=== PATIENT | male | born 1935 | race African-American/Black ===

== ENCOUNTER 2018-03-10 13:52 | Inpatient (IN) | payer OTHER ==
[~2018-03-10] VITALS: Ht 180.3 cm; Wt 130.2 kg
--- NOTE | 2018-03-10 14:43 | NUR ---
ED Nurse Note: pt relates unable to recall if he takes meds
[2018-03-10 14:55] VITALS: BP 155/81
--- NOTE | 2018-03-10 14:55 | NUR ---
ED Nurse Note: Pt AAO x4 present at ER c/o worsening Edema on all extremities. BP elevated but pt reported that he is his baseline. Denied pain including chest pain. Lungs sound clear. No s/s of cardiac or pulmonary distress noted.
[2018-03-10 15:02] LABS: BILIRUBIN, URINE NEGATIVE (NEGATIVE); GLUCOSE, URINE (UA) NEGATIVE (NEGATIVE); KETONES,URINE NEGATIVE (NEGATIVE); LEUKOCYTE ESTERASE ,URINE 1+ (NEGATIVE); NITRITE,URINE NEGATIVE (NEGATIVE); PH,URINE 5 (4.5-8.0); PROTEIN,URINE 4+ (NEGATIVE); UROBILINOGEN,URINE NORMAL MG/DL (0.0-1.0)
[2018-03-10 15:02] LABS: BASOPHILS % (AUTO) 0.9 % (0.0-2.0); EOSINOPHILS % (AUTO) 5.5 % (0.0-3.0); HEMATOCRIT 29.3 % (42.0-52.0); HEMOGLOBIN 9.1 G/DL (14.2-18.0); LYMPHOCYTES % (AUTO) 28.2 % (20.0-45.0); MEAN CORPUSCULAR VOLUME 84 FL (80-99); MONOCYTES % (AUTO) 8.1 % (1.0-10.0); NEUTROPHILS % (AUTO) 57.3 % (45.0-75.0); PLATELET COUNT 260 K/UL (150-450); RED BLOOD COUNT 3.48 M/UL (4.70-6.10); RED CELL DISTRIBUTION WIDTH 14.4 % (11.6-14.8); WHITE BLOOD COUNT 5.4 K/UL (4.8-10.8)
[2018-03-10 15:07] LABS: APPEARANCE,URINE SLIGHTLY CLOUDY; COLOR,URINE YELLOW
[2018-03-10 15:17] LABS: ANION GAP 5 mmol/L (5-15); BLOOD UREA NITROGEN 35 mg/dL (7-18); CARBON DIOXIDE 28 MMOL/L (21-32); CHLORIDE 113 MMOL/L (98-107); CREATININE 1.8 MG/DL (0.55-1.30); POTASSIUM 4.1 MMOL/L (3.5-5.1); SODIUM 146 MMOL/L (136-145)
[2018-03-10 15:35] LABS: ALANINE AMINOTRANSFERASE 17 U/L (12-78); ALBUMIN 1.4 G/DL (3.4-5.0); ALBUMIN/GLOBULIN RATIO 0.4 (1.0-2.7); ALKALINE PHOSPHATASE 72 U/L (46-116); ASPARTATE AMINO TRANSFERASE 20 U/L (15-37); BILIRUBIN,TOTAL 0.2 MG/DL (0.2-1.0); CKMB 0.6 NG/ML (0.0-3.6); CREATINE KINASE 172 U/L (26-308)
--- NOTE | 2018-03-10 15:40 | Diagnostic Imaging Report ---
Indication: Shortness of breath Technique: One view of the chest Comparison: none Findings: Heart is enlarged. There is bilateral interstitial edema. The left hemidiaphragm is obscured, pleural effusion possible Impression: Cardiomegaly with interstitial edema Possible left pleural effusion
--- NOTE | 2018-03-10 16:05 | Emergency Room Report ---
History of Present Illness General Chief Complaint: Edema Source: Patient Present Illness HPI States that about a month ago he noted that he began having swelling all over his body. He states that he has been having leg swelling and arm swelling. He did see his primary care physician at the [facility]. He states he admitted to hospital for several weeks. Unfortunately, the patient is a poor historian and has no family or medical information with him. He is unable to articulate any of his medical conditions or his medications. He did not bring a list or his medications with him. He states that he is visiting [facility] at this time. He will medications. He denies heart or lung problems. He denies diabetes. He states he believes he has high blood pressure. He denies history of stroke. He denies pain. He denies recent illness. He denies cough or congestion. He denies fever or chills. He denies chest pain or shortness of breath. He denies abdominal pain. He denies dysuria or hematuria. He has no other complaints. Allergies: Coded Allergies: No Known Allergies (Unverified , 03/10/18) Patient History Past Medical History: see triage record, unable to obtain, HTN Social History: Denies: smoking, alcohol use, drug use Reviewed Nursing Documentation: PMH: Agreed; PSxH: Agreed Review of Systems All Other Systems: negative except mentioned in HPI Physical Exam Vital Signs Date Time Temp Pulse Resp B/P (MAP) Pulse Ox O2 Delivery O2 Flow Rate FiO2 03/10/18 13:47 97.9 82 18 160/84 99 Room Air 03/10/18 14:55 95 Sp02 EP Interpretation: reviewed, normal General Appearance: no apparent distress, alert, GCS 15, non-toxic Head: normocephalic, atraumatic Eyes: bilateral eye normal inspection, bilateral eye PERRL ENT: hearing grossly normal, normal pharynx, no angioedema, normal voice Neck: full range of motion, supple/symm/no masses Respiratory: chest non-tender, lungs clear, normal breath sounds, no respiratory distress, no retraction, no accessory muscle use, speaking full sentences Cardiovascular #1: regular rate, rhythm, no edema, edema - BLE and BUE edema Gastrointestinal: normal bowel sounds, non tender, soft, non-distended, no guarding, no rebound Rectal: deferred Musculoskeletal: back normal, gait/station normal, normal range of motion, non- tender Neurologic: alert, oriented x3, responsive, motor strength/tone normal, sensory intact, speech normal Psychiatric: judgement/insight normal, mood/affect normal, no suicidal/ homicidal ideation Skin: normal color, no rash, warm/dry, well hydrated, other - anasarca Medical Decision Making Diagnostic Impression: Primary Impression: Anasarca Additional Impressions: CHARLIE (acute kidney injury) Proteinuria Glomerulonephritis Congestive heart failure (CHF) ER Course This patient is acute kidney injury. He also has proteinuria with anasarca that is concerning for a glomerulonephritis. I am concerned that this has been progressive given the symptom onset 1 month ago. The [place] the [place] away from his primary care physician and has no ability to follow-up. I am also concerned that this since medical sophistication is very low. She was unable to articulate any medical problems or medications despite being admitted to a hospital for 3 weeks according to him. I am concerned that if I were to discharge this patient with follow-up as an outpatient he would decline further and have significant morbidity due to his acute kidney injury and proteinuria., I felt that this patient should be admitted for further evaluation by nephrology. He is admitted for further evaluation and treatment. Laboratory Tests Test 03/10/18 14:20 03/10/18 14:46 Urine Color Yellow Urine Appearance Slightly cloudy Urine pH 5 (4.5-8.0) Urine Specific [place] 1.015 (1.005-1.035) Urine Protein 4+ (NEGATIVE) H Urine Glucose (UA) Negative (NEGATIVE) Urine Ketones Negative (NEGATIVE) Urine Blood 1+ (NEGATIVE) H Urine Nitrite Negative (NEGATIVE) Urine Bilirubin Negative (NEGATIVE) Urine Urobilinogen Normal MG/DL (0.0-1.0) Urine Leukocyte Esterase 1+ (NEGATIVE) H Urine RBC 2-4 /HPF (0 - 0) H Urine WBC 5-10 /HPF (0 - 0) H Urine Squamous Epithelial Cells None /LPF (NONE/OCC) Urine Amorphous Sediment Few /LPF (NONE) H Urine Bacteria Moderate /HPF (NONE) H White Blood Count 5.4 K/UL (4.8-10.8) Red Blood Count 3.48 M/UL (4.70-6.10) L Hemoglobin 9.1 G/DL (14.2-18.0) L Hematocrit 29.3 % (42.0-52.0) L Mean Corpuscular Volume 84 FL (80-99) Mean Corpuscular Hemoglobin 26.2 PG (27.0-31.0) L Mean Corpuscular Hemoglobin Concent 31.1 G/DL (32.0-36.0) L Red Cell Distribution Width 14.4 % (11.6-14.8) Platelet Count 260 K/UL (150-450) Mean Platelet Volume 5.9 FL (6.5-10.1) L Neutrophils (%) (Auto) 57.3 % (45.0-75.0) Lymphocytes (%) (Auto) 28.2 % (20.0-45.0) Monocytes (%) (Auto) 8.1 % (1.0-10.0) Eosinophils (%) (Auto) 5.5 % (0.0-3.0) H Basophils (%) (Auto) 0.9 % (0.0-2.0) Prothrombin Time 10.2 SEC (9.30-11.50) Prothrombin Time INR 1.0 (0.9-1.1) PTT 26 SEC (23-33) Sodium Level 146 MMOL/L (136-145) H Potassium Level 4.1 MMOL/L (3.5-5.1) Chloride Level 113 MMOL/L (98-107) H Carbon Dioxide Level 28 MMOL/L (21-32) Anion Gap 5 mmol/L (5-15) Blood Urea Nitrogen 35 mg/dL (7-18) H Creatinine 1.8 MG/DL (0.55-1.30) H Estimate Glomerular Filtration Rate mL/min (>60) Glucose Level 119 MG/DL (74-106) H Calcium Level 8.0 MG/DL (8.5-10.1) L Total Bilirubin 0.2 MG/DL (0.2-1.0) Aspartate Amino Transferase (AST) 20 U/L (15-37) Alanine Aminotransferase (ALT) 17 U/L (12-78) Alkaline Phosphatase 72 U/L (46-116) Total Creatine Kinase 172 U/L (26-308) Creatine Kinase MB 0.6 NG/ML (0.0-3.6) Creatine Kinase MB Relative Index 0.3 Troponin I 0.013 ng/mL (0.000-0.056) Pro-B-Type Natriuretic Peptide 384 pg/mL (0-125) H Total Protein 5.3 G/DL (6.4-8.2) L Albumin 1.4 G/DL (3.4-5.0) L Globulin 3.9 g/dL Albumin/Globulin Ratio 0.4 (1.0-2.7) L EKG Diagnostic Results Rate: normal Rhythm: NSR ST Segments: no acute changes Rhythm Strip Diag. Results EP Interpretation: yes Rate: 80's Rhythm: NSR, no PVC's, no ectopy, other - NSST findings. Chest X-Ray Diagnostic Results Chest X-Ray Diagnostic Results : Chest X-Ray Ordered: Yes # of Views/Limited/Complete: 1 View Indication: Other EP Interpretation: No Interpretation: other - Cardiomegaly, interstitial edema Impression: Other - See above Electronically Signed by: Valorie Kuo DO Last Vital Signs Date Time Temp Pulse Resp B/P (MAP) Pulse Ox O2 Delivery O2 Flow Rate FiO2 03/10/18 14:55 95 18 Room Air 95 03/10/18 14:55 98.1 155/81 99 Disposition: ADMITTED INPATIENT Condition: Serious Scripts Unable to Obtain Active Prescriptions or Reported Meds Valorie Kuo DO Mar 10, 2018 16:05
[2018-03-10 17:00] VITALS: BP 144/91
--- NOTE | 2018-03-10 17:37 | NUR ---
ED Nurse Note: Pt will be admitted to Tele. Waiting for the room to be available.
--- NOTE | 2018-03-10 18:39 | Cardiac Electrophysiology PN ---
Subjective Subjective [id number] Objective Last 24 Hour Vital Signs Date Time Temp Pulse Resp B/P (MAP) Pulse Ox O2 Delivery O2 Flow Rate FiO2 03/10/18 14:55 95 18 Room Air 95 03/10/18 14:55 98.1 95 23 155/81 99 Room Air 03/10/18 13:47 97.9 82 18 160/84 99 Room Air Laboratory Tests Test 03/10/18 14:20 03/10/18 14:46 Urine Color Yellow Urine Appearance Slightly cloudy Urine pH 5 (4.5-8.0) Urine Specific [place] 1.015 (1.005-1.035) Urine Protein 4+ (NEGATIVE) H Urine Glucose (UA) Negative (NEGATIVE) Urine Ketones Negative (NEGATIVE) Urine Blood 1+ (NEGATIVE) H Urine Nitrite Negative (NEGATIVE) Urine Bilirubin Negative (NEGATIVE) Urine Urobilinogen Normal MG/DL (0.0-1.0) Urine Leukocyte Esterase 1+ (NEGATIVE) H Urine RBC 2-4 /HPF (0 - 0) H Urine WBC 5-10 /HPF (0 - 0) H Urine Squamous Epithelial Cells None /LPF (NONE/OCC) Urine Amorphous Sediment Few /LPF (NONE) H Urine Bacteria Moderate /HPF (NONE) H White Blood Count 5.4 K/UL (4.8-10.8) Red Blood Count 3.48 M/UL (4.70-6.10) L Hemoglobin 9.1 G/DL (14.2-18.0) L Hematocrit 29.3 % (42.0-52.0) L Mean Corpuscular Volume 84 FL (80-99) Mean Corpuscular Hemoglobin 26.2 PG (27.0-31.0) L Mean Corpuscular Hemoglobin Concent 31.1 G/DL (32.0-36.0) L Red Cell Distribution Width 14.4 % (11.6-14.8) Platelet Count 260 K/UL (150-450) Mean Platelet Volume 5.9 FL (6.5-10.1) L Neutrophils (%) (Auto) 57.3 % (45.0-75.0) Lymphocytes (%) (Auto) 28.2 % (20.0-45.0) Monocytes (%) (Auto) 8.1 % (1.0-10.0) Eosinophils (%) (Auto) 5.5 % (0.0-3.0) H Basophils (%) (Auto) 0.9 % (0.0-2.0) Prothrombin Time 10.2 SEC (9.30-11.50) Prothromb Time International Ratio 1.0 (0.9-1.1) Activated Partial Thromboplast Time 26 SEC (23-33) Sodium Level 146 MMOL/L (136-145) H Potassium Level 4.1 MMOL/L (3.5-5.1) Chloride Level 113 MMOL/L (98-107) H Carbon Dioxide Level 28 MMOL/L (21-32) Anion Gap 5 mmol/L (5-15) Blood Urea Nitrogen 35 mg/dL (7-18) H Creatinine 1.8 MG/DL (0.55-1.30) H Estimat Glomerular Filtration Rate mL/min (>60) Glucose Level 119 MG/DL (74-106) H Calcium Level 8.0 MG/DL (8.5-10.1) L Total Bilirubin 0.2 MG/DL (0.2-1.0) Aspartate Amino Transf (AST/SGOT) 20 U/L (15-37) Alanine Aminotransferase (ALT/SGPT) 17 U/L (12-78) Alkaline Phosphatase 72 U/L (46-116) Total Creatine Kinase 172 U/L (26-308) Creatine Kinase MB 0.6 NG/ML (0.0-3.6) Creatine Kinase MB Relative Index 0.3 Troponin I 0.013 ng/mL (0.000-0.056) Pro-B-Type Natriuretic Peptide 384 pg/mL (0-125) H Total Protein 5.3 G/DL (6.4-8.2) L Albumin 1.4 G/DL (3.4-5.0) L Globulin 3.9 g/dL Albumin/Globulin Ratio 0.4 (1.0-2.7) L Jose Chairez MD Mar 10, 2018 18:39
[2018-03-10 19:03] VITALS: BP 155/95
--- NOTE | 2018-03-10 19:36 | NUR ---
ED Nurse Note: Patient is in bed alert and oriented but unable to verify the medication that he takes back in [place]. Patient is oriented x4, vss. Has no acute concerns at this time and no complaints of pain.
[2018-03-10 20:00] VITALS: BP 152/72
--- NOTE | 2018-03-10 20:00 | NUR ---
NURSE NOTES: Received report from Yasmine COOPER RN via telephone regarding patient before entering the unit. Patient was transferred to unit via gurney and transferred to hospital bed via gurney without incident. Placed patient on security monitor, orientated him to room, hospital, and unit. Tried reviewing past medical history and home medication regimen but patient is a poor historian. Admission orders were received and will be carried out. Admission vitals signs are WNL as well as EKG rhythm. Bed is in lowest position with call light within reach. Will continue to monitor and follow plan of care.
[2018-03-10 21:46] VITALS: BP 167/70
--- NOTE | 2018-03-10 22:15 | Consultation ---
DATE OF CONSULTATION: 03/10/2018 CARDIOLOGY CONSULTATION CONSULTING PHYSICIAN: Jose Chairez M.D. REFERRING PHYSICIAN: Rambo Conklin M.D. REASON FOR CONSULTATION: Congestive heart failure. HISTORY OF PRESENT ILLNESS: The patient is an 82-year-old gentleman, who is visiting [place] from [place], who states that he for more than a month. He stated that he also had an angiogram, but he does not know why. He states that he has been having increased swelling in his legs, but did not make a diagnosis. He saw his primary care at the [facility] and was admitted for several weeks. The patient is not clear about his diagnosis. He came to the emergency room as his blood pressure was elevated and his legs were still significantly swollen. REVIEW OF SYSTEMS: Negative other than what was mentioned in the history of present illness. PAST MEDICAL HISTORY: Hypertension. FAMILY HISTORY: Noncontributory. SOCIAL HISTORY: He is from [place] visiting his son in [place]. Does not smoke or drink alcohol. PHYSICAL EXAMINATION: VITAL SIGNS: Blood pressure is 155/81, pulse 95, respirations 18, and temperature 98. HEAD AND NECK: Shows mild JVD. LUNGS: Decreased breath sounds. CARDIOVASCULAR: Shows regular S1 and S2 with no gallop. ABDOMEN: Soft. EXTREMITIES: 2+ pitting edema. LABORATORY AND DIAGNOSTIC DATA: EKG shows sinus rhythm with nonspecific T-wave abnormality. Labs show white count of 5.5, hemoglobin 9.1, hematocrit 29.3, and platelet count of 260,000. Sodium 143, potassium 4.1, BUN 35, creatinine , and glucose 119. Troponin is negative. INR is 1. Urinalysis showed moderate bacteria. ASSESSMENT AND PLAN: 1. Severe bilateral lower extremity edema. We will get a lower extremity duplex. We will get an echocardiogram to evaluate for ejection fraction and wall motion abnormality. His creatinine is also elevated at 1.8. I will put him on Lasix 40 mg IV b.i.d. and continue to follow the patient clinically. 2. Hypertension. Continue Lasix and metoprolol 25 mg b.i.d. Avoid BOBBY inhibitor and angiotensin-receptor blockers in view of his renal failure at this point. 3. Morbid obesity. Thank you very much for allowing me to participate in the care of this patient. Please do not hesitate to contact me for any questions regarding my evaluation. Sincerely, Jose Chairez M.D. DR: SHIREEN JOB#: [id number] CC:
[2018-03-10] MEDS: Carvedilol 6.25mg Tab ORAL SCH (23:00)
[2018-03-11] VITALS: BP 146/76
[2018-03-11 04:00] VITALS: BP 149/81
--- NOTE | 2018-03-11 07:20 | NUR ---
NURSE NOTES:RECEIVED PT WITH HOB ELEVATED 45 DEGREE AWAKE AND ALERT ORIENTED X4 .PT DENIES CP OR SOB AT THIS TIME.FULL BODY ASSESSMENT DONE.NO ACUTE DISTRESS NOTED AT THIS TIME.WILL CONT TO MONITOR.
--- NOTE | 2018-03-11 07:52 | NUR ---
HAND-OFF: Report given to Brittany WILKINS.
[2018-03-11 08:00] VITALS: BP 159/78
[2018-03-11] MEDS: Carvedilol 6.25mg Tab ORAL SCH ×2 (09:00→21:05)
[2018-03-11 10:52] LABS: HDL CHOLESTEROL 50 MG/DL (40-60); TRIGLYCERIDES 90 MG/DL (30-150)
--- NOTE | 2018-03-11 10:54 | NUR ---
CASE MANAGEMENT:REVIEW BIBA CC; BLE EDEMA PMH: WAS RECENTLY SEEN AND HOSPITALIZED AT [place] SI: [facility]. CHF. CHARLIE 97.8 82 18 160/84 99% ON RA H/H-9.1/29.3 NA 146 BUN 35 CR 1.8 TROPONIN NEG IS: CXR : TO TELEMETRY IS: HEPARIN SQ IV LASIX Q12 COREG POQ12 PLAN: 2DECHO VENOUS DUPLEX INTERQUAL CRITERIA MET
--- NOTE | 2018-03-11 10:55 | Cardiac Electrophysiology PN ---
Assessment/Plan Assessment/Plan 1. Severe bilateral lower extremity edema. Echocardiogram pending. His creatinine is also elevated at 1.8. On Lasix 40 mg IV b.i.d. 2. Hypertension. Continue Lasix and metoprolol 25 mg b.i.d. Avoid BOBBY inhibitor and angiotensin-receptor blockers in view of his renal failure at this point. 3. Morbid obesity. Subjective Subjective Diuresing well. No CP Objective Last 24 Hour Vital Signs Date Time Temp Pulse Resp B/P (MAP) Pulse Ox O2 Delivery O2 Flow Rate FiO2 03/11/18 09:00 73 159/78 03/11/18 08:00 97.5 73 20 159/78 (105) 95 03/11/18 04:00 98.0 66 18 149/81 (103) 96 03/11/18 04:00 78 03/11/18 00:00 80 03/11/18 00:00 98.1 68 18 146/76 (99) 93 03/10/18 23:00 80 152/72 03/10/18 22:37 Room Air 03/10/18 22:10 97.4 73 14 167/70 95 Room Air 95 03/10/18 21:46 97.4 73 14 167/70 95 Room Air 03/10/18 20:00 97.3 80 18 152/72 (98) 93 03/10/18 19:03 97.7 82 19 155/95 98 Room Air 95 03/10/18 17:00 98.1 84 19 144/91 99 Room Air 95 03/10/18 14:55 95 18 Room Air 95 03/10/18 14:55 98.1 95 23 155/81 99 Room Air 03/10/18 13:47 97.9 82 18 160/84 99 Room Air Intake and Output 03/10/18 03/11/18 18:59 06:59 # Voids 1 3 Laboratory Tests Test 03/10/18 14:20 03/10/18 14:46 03/11/18 07:02 Urine Color Yellow Urine Appearance Slightly cloudy Urine pH 5 (4.5-8.0) Urine Specific [place] 1.015 (1.005-1.035) Urine Protein 4+ (NEGATIVE) H Urine Glucose (UA) Negative (NEGATIVE) Urine Ketones Negative (NEGATIVE) Urine Blood 1+ (NEGATIVE) H Urine Nitrite Negative (NEGATIVE) Urine Bilirubin Negative (NEGATIVE) Urine Urobilinogen Normal MG/DL (0.0-1.0) Urine Leukocyte Esterase 1+ (NEGATIVE) H Urine RBC 2-4 /HPF (0 - 0) H Urine WBC 5-10 /HPF (0 - 0) H Urine Squamous Epithelial Cells None /LPF (NONE/OCC) Urine Amorphous Sediment Few /LPF (NONE) H Urine Bacteria Moderate /HPF (NONE) H White Blood Count 5.4 K/UL (4.8-10.8) Red Blood Count 3.48 M/UL (4.70-6.10) L Hemoglobin 9.1 G/DL (14.2-18.0) L Hematocrit 29.3 % (42.0-52.0) L Mean Corpuscular Volume 84 FL (80-99) Mean Corpuscular Hemoglobin 26.2 PG (27.0-31.0) L Mean Corpuscular Hemoglobin Concent 31.1 G/DL (32.0-36.0) L Red Cell Distribution Width 14.4 % (11.6-14.8) Platelet Count 260 K/UL (150-450) Mean Platelet Volume 5.9 FL (6.5-10.1) L Neutrophils (%) (Auto) 57.3 % (45.0-75.0) Lymphocytes (%) (Auto) 28.2 % (20.0-45.0) Monocytes (%) (Auto) 8.1 % (1.0-10.0) Eosinophils (%) (Auto) 5.5 % (0.0-3.0) H Basophils (%) (Auto) 0.9 % (0.0-2.0) Prothrombin Time 10.2 SEC (9.30-11.50) Prothromb Time International Ratio 1.0 (0.9-1.1) Activated Partial Thromboplast Time 26 SEC (23-33) Sodium Level 146 MMOL/L (136-145) H Potassium Level 4.1 MMOL/L (3.5-5.1) Chloride Level 113 MMOL/L (98-107) H Carbon Dioxide Level 28 MMOL/L (21-32) Anion Gap 5 mmol/L (5-15) Blood Urea Nitrogen 35 mg/dL (7-18) H Creatinine 1.8 MG/DL (0.55-1.30) H Estimat Glomerular Filtration Rate mL/min (>60) Glucose Level 119 MG/DL (74-106) H Calcium Level 8.0 MG/DL (8.5-10.1) L Total Bilirubin 0.2 MG/DL (0.2-1.0) Aspartate Amino Transf (AST/SGOT) 20 U/L (15-37) Alanine Aminotransferase (ALT/SGPT) 17 U/L (12-78) Alkaline Phosphatase 72 U/L (46-116) Total Creatine Kinase 172 U/L (26-308) Creatine Kinase MB 0.6 NG/ML (0.0-3.6) Creatine Kinase MB Relative Index 0.3 Troponin I 0.013 ng/mL (0.000-0.056) 0.017 ng/mL (0.000-0.056) Pro-B-Type Natriuretic Peptide 384 pg/mL (0-125) H Pending Total Protein 5.3 G/DL (6.4-8.2) L Albumin 1.4 G/DL (3.4-5.0) L Globulin 3.9 g/dL Albumin/Globulin Ratio 0.4 (1.0-2.7) L Triglycerides Level Pending Cholesterol Level Pending LDL Cholesterol Pending HDL Cholesterol Pending Cholesterol/HDL Ratio Pending Thyroid Stimulating Hormone (TSH) Pending Free Thyroxine Pending Microbiology Date/Time Source Procedure Growth Status 03/10/18 14:20 Urine,Clean Catch Urine Culture - Preliminary NO GROWTH Resulted Objective HEAD AND NECK: Shows mild JVD. LUNGS: Decreased breath sounds. CARDIOVASCULAR: Shows regular S1 and S2 with no gallop. ABDOMEN: Soft. EXTREMITIES: 2+ pitting edema. Jose Chairez MD Mar 11, 2018 10:55
[2018-03-11 11:02] LABS: CHOLESTEROL 162 MG/DL (< 200)
[2018-03-11 12:00] VITALS: BP 138/86
--- NOTE | 2018-03-11 13:56 | Consultation ---
Consult Note Consult Note asked to eval for renal failure- States that about a month ago he noted that he began having swelling all over his body. He states that he has been having leg swelling and arm swelling. He did see his primary care physician at the [place] [facility]. He states he admitted to hospital for several weeks. Unfortunately, the patient is a poor historian and has no family or medical information with him. He is unable to articulate any of his medical conditions or his medications. He did not bring a list or his medications with him. He states that he is visiting [facility] at this time. He will medications. He denies heart or lung problems. He denies diabetes. He states he believes he has high blood pressure. He denies history of stroke. He denies pain. He denies recent illness. He denies cough or congestion. He denies fever or chills. He denies chest pain or shortness of breath. He denies abdominal pain. He denies dysuria or hematuria. He has no other complaints. No Known Allergies (Unverified , 03/10/18) examined data reviewed poor historian . . Assessment/Plan Anemia, Proteinuria, HypoAlbuminemia, Renal Failure ? Diabetic ? Amyloidosis HTN ? CHF 24 H urine protein SPEP UPEP HgbA1c BP control 2D echo per orders Arcadio Guevara MD Mar 11, 2018 13:55
--- NOTE | 2018-03-11 14:16 | History and Physical ---
History & Physical (DB) History & Physical History & Physical Chief Complaint: SOB Reason for Hospitalization: Anasarca, renal failure, ADHF History obtained from: Chart and Patient HPI: 82 M unknown PMH was admitted @ the [facility] in [place] last month for unknown reasons presents now with several weeks of increased edema, frothy urine , SOB, no FC, no cough, no wheezing. He is unsure why he was hospitalized and states that he has no medical problems other than possibly HTN. He is visiting from [place]. He denies any WARREN use. Work un in the ED demonstrates abnormal renal function with proteinuria, edema and concern for ADHF. Past Medical/Surgical History: Denies Social History: , visiting from [place], no T/E/D use Family History: N/C ALL: NKDA Active Scripts Medications Dose Route/Sig Max Daily Dose Days Date Category Active Prescriptions or Reported Medications Unobtainable Rx REVIEW OF SYSTEMS: negative other than hPI Physical exam: Last 24 Hour Vital Signs Date Time Temp Pulse Resp B/P (MAP) Pulse Ox O2 Delivery O2 Flow Rate FiO2 03/11/18 12:00 97.3 78 20 138/86 (103) 94 03/11/18 12:00 64 03/11/18 09:00 73 159/78 03/11/18 08:00 75 03/11/18 08:00 97.5 73 20 159/78 (105) 95 03/11/18 04:00 98.0 66 18 149/81 (103) 96 03/11/18 04:00 78 03/11/18 00:00 80 03/11/18 00:00 98.1 68 18 146/76 (99) 93 03/10/18 23:00 80 152/72 03/10/18 22:37 Room Air 03/10/18 22:10 97.4 73 14 167/70 95 Room Air 95 03/10/18 21:46 97.4 73 14 167/70 95 Room Air 03/10/18 20:00 97.3 80 18 152/72 (98) 93 03/10/18 19:03 97.7 82 19 155/95 98 Room Air 95 03/10/18 17:00 98.1 84 19 144/91 99 Room Air 95 03/10/18 14:55 95 18 Room Air 95 03/10/18 14:55 98.1 95 23 155/81 99 Room Air NAD, AAOX3 NC/AT, OPC c MMM Supple s LAD, JVD to AoM CTA b x for BiB rales RRR S/NT/ND c NABS No C/C, 1+ BAK[facility]I Laboratories: Laboratory Tests Test 03/10/18 14:20 03/10/18 14:46 03/11/18 07:02 Urine Color Yellow Urine Appearance Slightly cloudy Urine pH 5 (4.5-8.0) Urine Specific [place] 1.015 (1.005-1.035) Urine Protein 4+ (NEGATIVE) H Urine Glucose (UA) Negative (NEGATIVE) Urine Ketones Negative (NEGATIVE) Urine Blood 1+ (NEGATIVE) H Urine Nitrite Negative (NEGATIVE) Urine Bilirubin Negative (NEGATIVE) Urine Urobilinogen Normal MG/DL (0.0-1.0) Urine Leukocyte Esterase 1+ (NEGATIVE) H Urine RBC 2-4 /HPF (0 - 0) H Urine WBC 5-10 /HPF (0 - 0) H Urine Squamous Epithelial Cells None /LPF (NONE/OCC) Urine Amorphous Sediment Few /LPF (NONE) H Urine Bacteria Moderate /HPF (NONE) H White Blood Count 5.4 K/UL (4.8-10.8) Red Blood Count 3.48 M/UL (4.70-6.10) L Hemoglobin 9.1 G/DL (14.2-18.0) L Hematocrit 29.3 % (42.0-52.0) L Mean Corpuscular Volume 84 FL (80-99) Mean Corpuscular Hemoglobin 26.2 PG (27.0-31.0) L Mean Corpuscular Hemoglobin Concent 31.1 G/DL (32.0-36.0) L Red Cell Distribution Width 14.4 % (11.6-14.8) Platelet Count 260 K/UL (150-450) Mean Platelet Volume 5.9 FL (6.5-10.1) L Neutrophils (%) (Auto) 57.3 % (45.0-75.0) Lymphocytes (%) (Auto) 28.2 % (20.0-45.0) Monocytes (%) (Auto) 8.1 % (1.0-10.0) Eosinophils (%) (Auto) 5.5 % (0.0-3.0) H Basophils (%) (Auto) 0.9 % (0.0-2.0) Prothrombin Time 10.2 SEC (9.30-11.50) Prothromb Time International Ratio 1.0 (0.9-1.1) Activated Partial Thromboplast Time 26 SEC (23-33) Sodium Level 146 MMOL/L (136-145) H Potassium Level 4.1 MMOL/L (3.5-5.1) Chloride Level 113 MMOL/L (98-107) H Carbon Dioxide Level 28 MMOL/L (21-32) Anion Gap 5 mmol/L (5-15) Blood Urea Nitrogen 35 mg/dL (7-18) H Creatinine 1.8 MG/DL (0.55-1.30) H Estimat Glomerular Filtration Rate mL/min (>60) Glucose Level 119 MG/DL (74-106) H Calcium Level 8.0 MG/DL (8.5-10.1) L Total Bilirubin 0.2 MG/DL (0.2-1.0) Aspartate Amino Transf (AST/SGOT) 20 U/L (15-37) Alanine Aminotransferase (ALT/SGPT) 17 U/L (12-78) Alkaline Phosphatase 72 U/L (46-116) Total Creatine Kinase 172 U/L (26-308) Creatine Kinase MB 0.6 NG/ML (0.0-3.6) Creatine Kinase MB Relative Index 0.3 Troponin I 0.013 ng/mL (0.000-0.056) 0.017 ng/mL (0.000-0.056) Pro-B-Type Natriuretic Peptide 384 pg/mL (0-125) H 488 pg/mL (0-125) H Total Protein 5.3 G/DL (6.4-8.2) L Albumin 1.4 G/DL (3.4-5.0) L Globulin 3.9 g/dL Albumin/Globulin Ratio 0.4 (1.0-2.7) L Triglycerides Level 90 MG/DL (30-150) Cholesterol Level 162 MG/DL (< 200) LDL Cholesterol 92 mg/dL (<100) HDL Cholesterol 50 MG/DL (40-60) Cholesterol/HDL Ratio 3.2 (3.3-4.4) L Thyroid Stimulating Hormone (TSH) 5.017 uiU/mL (0.358-3.740) Free Thyroxine 0.87 NG/DL (0.76-1.46) Imaging: CXR: PVC Duplex: No DVT Assessment/Problem List: 82 M h/o obesity and HTN pw SOB and edema in the setting of nephrotic syndrome and possible CHF. (1) CHARLIE (acute kidney injury) (2) Anasarca (3) Congestive heart failure (CHF) (4) Glomerulonephritis (5) Proteinuria Plan: -Admit to tele -Monitor volumes and renal function, cautious diuresis -Cards and renal evaluations -F/U studies (SPEP, UPEP, urine studies, renal US), may need renal Bx -F/U TTE -CT CAP -ENDO eval given abnl TFT's -Cardiac diet DVT Prophylaxis: HEP SQ Code status: full Hospital Classification declaration: Based on this initial evaluation, and depending on the patient's clinical course, I anticipate that this patient will require hospitalization for 2-3 days. Disposition: Once the patient is stable to leave the hospital, I anticipate the patient will likely be discharged to the following environment I spent 70 minutes on this patient's case, and minutes was dedicated to counseling and/or care coordination. Case was discussed with Time of note may not reflect time of encounter. Rambo Conklin MD Mar 11, 2018 14:16
[2018-03-11 16:00] VITALS: BP 155/65
--- NOTE | 2018-03-11 18:51 | Infectious Diseases Prog Note ---
Assessment/Plan Assessment/Plan Full consult dictated: possible uti + ua no urinary symptoms per patient urine culture negative so far check final urine culture antibiotics if indicated thank you Subjective Allergies: Coded Allergies: No Known Allergies (Unverified , 03/10/18) Objective Vital Signs Last 24 Hour Vital Signs Date Time Temp Pulse Resp B/P (MAP) Pulse Ox O2 Delivery O2 Flow Rate FiO2 03/11/18 16:00 73 03/11/18 16:00 98.0 71 19 155/65 (95) 97 03/11/18 12:00 97.3 78 20 138/86 (103) 94 03/11/18 12:00 64 03/11/18 09:00 73 159/78 03/11/18 09:00 Room Air 03/11/18 08:00 75 03/11/18 08:00 97.5 73 20 159/78 (105) 95 03/11/18 04:00 98.0 66 18 149/81 (103) 96 03/11/18 04:00 78 03/11/18 00:00 80 03/11/18 00:00 98.1 68 18 146/76 (99) 93 03/10/18 23:00 80 152/72 03/10/18 22:37 Room Air 03/10/18 22:10 97.4 73 14 167/70 95 Room Air 95 03/10/18 21:46 97.4 73 14 167/70 95 Room Air 03/10/18 20:00 97.3 80 18 152/72 (98) 93 03/10/18 19:03 97.7 82 19 155/95 98 Room Air 95 Height (Feet): 5 Height (Inches): 11.00 Weight (Pounds): 288 Microbiology Date/Time Source Procedure Growth Status 03/10/18 14:20 Urine,Clean Catch Urine Culture - Preliminary NO GROWTH Resulted Laboratory Tests Test 03/11/18 07:02 Troponin I 0.017 ng/mL (0.000-0.056) C-Reactive Protein, Quantitative 1.1 mg/dL (0.00-0.90) H Pro-B-Type Natriuretic Peptide 488 pg/mL (0-125) H Triglycerides Level 90 MG/DL (30-150) Cholesterol Level 162 MG/DL (< 200) LDL Cholesterol 92 mg/dL (<100) HDL Cholesterol 50 MG/DL (40-60) Cholesterol/HDL Ratio 3.2 (3.3-4.4) L Thyroid Stimulating Hormone (TSH) 5.017 uiU/mL (0.358-3.740) Free Thyroxine 0.87 NG/DL (0.76-1.46) Current Medications Medications (Trade) Dose Ordered Sig/Panfilo Route PRN Reason Start Time Stop Time Status Last Admin Dose Admin Acetaminophen (Tylenol) 650 mg Q6H PRN ORAL Mild Pain/Temp > 100.5 03/11/18 09:45 04/10/18 09:44 Carvedilol (Coreg) 6.25 mg EVERY 12 HOURS ORAL 03/10/18 21:00 04/09/18 20:59 03/11/18 09:00 Clonidine HCl (Catapres Tab) 0.1 mg Q4H PRN ORAL sbp>170mmHg 03/11/18 14:15 04/09/18 18:44 Furosemide (Lasix) 40 mg EVERY 12 HOURS IV 03/10/18 21:00 04/09/18 20:59 03/11/18 09:00 Heparin Sodium (Porcine) (Heparin 5000 units/ml) 5,000 units EVERY 12 HOURS SUBQ 03/11/18 21:00 04/10/18 20:59 Ondansetron HCl (Zofran) 4 mg Q6H PRN IVP Nausea & Vomiting 03/11/18 09:45 04/10/18 09:44 Pantoprazole (Protonix) 40 mg DAILY ORAL 03/11/18 14:30 04/10/18 14:29 03/11/18 15:24 Tamsulosin HCl (Flomax) 0.4 mg BEDTIME ORAL 03/11/18 21:00 04/10/18 20:59 Fiorella Mclaughlin MD Mar 11, 2018 18:51
--- NOTE | 2018-03-11 19:18 | NUR ---
HAND-OFF: Report given to .KRISTEN WILKINS.
--- NOTE | 2018-03-11 19:30 | NUR ---
NURSE NOTES: 24 hour urine initiated at this time. Patient made aware the reason of urine collection. Patient verbalized understanding.
[2018-03-11 20:00] VITALS: BP 137/59
[2018-03-11] MEDS: Tamsulosin 0.4mg cap ORAL SCH (21:05)
[2018-03-11] MEDS: Heparin 5000 units/ml inj SUBQ SCH (21:07)
--- NOTE | 2018-03-11 22:30 | Consultation ---
DATE OF CONSULTATION: 03/11/2018 INFECTIOUS DISEASES CONSULTATION CONSULTING PHYSICIAN: Fiorella Mclaughlin M.D. ATTENDING PHYSICIAN: Rambo Conklin M.D. REFERRING PHYSICIAN: Rambo Conklin M.D. REASON FOR CONSULTATION: Possible UTI. REASON FOR ADMISSION: Acute kidney injury, anasarca, proteinuria, renal failure, edema. HISTORY OF PRESENT ILLNESS: This is a very pleasant 82-year-old male who comes in to [facility] and was noted to have acute kidney injury and elevated creatinine. The patient was noted to have edema and anasarca. The patient was also noted to have positive urinalysis and question if the patient has urinary tract infection. Infectious Diseases was consulted for evaluation for possible UTI. The patient's urinalysis was positive, however, his urine culture so far is negative. The patient denies any urinary symptoms at this time. The patient is being worked up by primary, Dr. Conklin, and consultants. MAR was noted. Orders were noted. Notes were reviewed. The patient has not received any antibiotics at this time. REVIEW OF SYSTEMS: CONSTITUTIONAL: He has generalized fatigue. No focal weakness. HEAD AND NECK: No head pain or neck pain. No headache or change in vision. No neck stiffness. CARDIAC: No chest pain. He does have edema. GASTROINTESTINAL: No nausea, vomiting, or diarrhea. GENITOURINARY: No dysuria or frequency. No CVA tenderness. PULMONARY: No congestion or shortness of breath. He has no productive cough or secretions. SKIN: No rash or itching. EXTREMITIES: No extremity pain, but he just has edema. NEUROLOGIC: No seizures. PAST MEDICAL HISTORY: The patient has past medical history of anemia, history of renal failure, history of hypertension, proteinuria, glomerular nephritis, CHF, anasarca, edema, and acute kidney injury. Likely chronic kidney disease. No history of diabetes. ALLERGIES: No known drug allergies. No antibiotic allergies. SOCIAL HISTORY: Currently is negative for smoking, alcohol, or drug abuse. FAMILY HISTORY: Noncontributory. Negative for cancer or tuberculosis. MEDICATIONS: Upon reviewing the MAR, he is on the following medications. He is on heparin. He is on Flomax, Protonix, Catapres, Tylenol, Zofran, Lasix, Coreg. Outside medications noted and reconciliated. PHYSICAL EXAMINATION: VITAL SIGNS: Temperature 98.0, pulse rate 71, respiratory rate 19, blood pressure 155/65, saturation 97%. GENERAL: Alert, responsive, in no acute distress. HEAD AND NECK: Oral exam, no thrush. Eye exam, no icterus. Normocephalic. No JVD. No icterus. Neck is supple. No thrush. HEART: Regular. No obvious murmur or friction rub. Possible gallop. ABDOMEN: Soft. Positive bowel sounds. Nontender. No organomegaly. LUNGS: Clear bilaterally. No rhonchi or rales. SKIN: No rash. MUSCULOSKELETAL: No effusion. No septic arthritis. EXTREMITIES: Lower extremity exam, he has no cellulitis, but does have edema. PERIPHERAL VASCULAR: No gangrene. GENITOURINARY: No Velasquez. No CVA tenderness. LINE SITES: Without phlebitis. NEUROLOGIC: Intact. Nonfocal. LABORATORY DATA: As follows. White count 5.4, hemoglobin 9.1. Sodium 146. Urinalysis had 1+ leukocyte esterase, 5-10 white blood cells, moderate bacteria. Urine culture is negative so far at 24 hours. Creatinine 1.8. IMAGING STUDIES: Chest x-ray shows cardiomegaly, interstitial edema, possible effusion on the left. ASSESSMENT AND PLAN: 1. The patient has positive urinalysis with 1+ leukocyte esterase, 5-10 white blood cells. It is question if the patient has urinary tract infection, however, he has no urinary symptoms. Denies any dysuria, CVA tenderness, or frequency. No fever or chills. Most likely, this is asymptomatic pyuria. Continue to monitor the patient clinically and also check final urine culture. If the urine culture is negative, I would not give antibiotics. Currently for the patient, there is no indication for antibiotics at this time. Again, monitor the patient clinically and give only antibiotics if indicated. 2. Acute kidney injury, elevated creatinine, chronic renal failure. 3. Hypernatremia. 4. Anemia. 5. Hypertension. 6. Blood pressure treatment per primary and consultants. 7. CHF. 8. Edema. 9. Anasarca. 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 11. Past medical history noted. 12. No known drug allergies. 13. Social history negative. 14. Family history noncontributory. 15. MAR was noted. 16. Case discussed with RN. 17. Continue treatment per primary consultants. Fiorella Mclaughlin M.D. DR: Álvaro JOB#: [id number] CC:
[2018-03-12] VITALS: BP 139/83
[2018-03-12 04:00] VITALS: BP 133/79
[2018-03-12 06:04] LABS: EOSINOPHILS % (AUTO) 7.4 % (0.0-3.0); HEMATOCRIT 26.5 % (42.0-52.0); HEMOGLOBIN 8.3 G/DL (14.2-18.0); LYMPHOCYTES % (AUTO) 37.3 % (20.0-45.0); MEAN CORPUSCULAR VOLUME 83 FL (80-99); MONOCYTES % (AUTO) 9.2 % (1.0-10.0); NEUTROPHILS % (AUTO) 45.1 % (45.0-75.0); PLATELET COUNT 225 K/UL (150-450); WHITE BLOOD COUNT 5.7 K/UL (4.8-10.8)
[2018-03-12 06:42] LABS: ALANINE AMINOTRANSFERASE 13 U/L (12-78); ALBUMIN 1.3 G/DL (3.4-5.0); ALBUMIN/GLOBULIN RATIO 0.4 (1.0-2.7); ALKALINE PHOSPHATASE 67 U/L (46-116); ANION GAP 5 mmol/L (5-15); ASPARTATE AMINO TRANSFERASE 18 U/L (15-37); BILIRUBIN,TOTAL 0.2 MG/DL (0.2-1.0); BLOOD UREA NITROGEN 29 mg/dL (7-18); CALCIUM 7.9 MG/DL (8.5-10.1); CARBON DIOXIDE 27 MMOL/L (21-32); CHLORIDE 109 MMOL/L (98-107); CREATININE 1.6 MG/DL (0.55-1.30); FERRITIN 146 NG/ML (8-388); GAMMA GLUTAMYL TRANSPEPTIDASE 9 U/L (5-85); PHOSPHORUS 3.6 MG/DL (2.5-4.9); SODIUM 141 MMOL/L (136-145)
--- NOTE | 2018-03-12 07:30 | NUR ---
NURSE NOTES: Received report from FRANKY Hart. Patient is resting in bed, in stable condition. No s/sx of SOB, breathing is even and unlabored. Denies any presence of pain or discomfort at this time. Bed is in lowest position, brakes engaged. Call light is kept within easy reach. Will continue to monitor patient.
--- NOTE | 2018-03-12 07:35 | NUR ---
HAND-OFF: Report given to FRANKY Horton.
[2018-03-12 08:00] VITALS: BP 137/86
--- NOTE | 2018-03-12 08:00 | NUR ---
NURSE NOTES: Received call at nurse station from Robert Rendon, patient's son, per patient "okay to give information". Noted. Robert's cell: . Noted.
[2018-03-12] MEDS: Carvedilol 6.25mg Tab ORAL SCH ×2 (08:10→21:07)
[2018-03-12] MEDS: Heparin 5000 units/ml inj SUBQ SCH ×2 (08:11→21:08)
--- NOTE | 2018-03-12 08:45 | NUR ---
CASE MANAGEMENT:REVIEW 03/12/18 SI: CHARLIE. ANASARCA.? UTI 98.0 66 18 133/79 94% ON RA H/H-8.3/26.5 BUN+29 CR+1.6 IS: HEPARIN SQ Q12 FLOMAX PO QHS PROTONIX PO QD IV LASIX Q12 COREG PO Q12 : TELEMETRY DCP: VISITING [facility] FROM [facility]
--- NOTE | 2018-03-12 09:51 | NUR ---
NURSE NOTES: Per patient and patient's son Robert Rendon, , would like patient to transfer to [facility] since that is where patient was came from in [place], [place]. Per patient's son, patient came to [facility] this past Thursday. Robert states that patient was staing was staying with his brother Doe. Per patient, he was brought into hospital by two army friends and not son Lucas, per patient statement, "Lucas, put me out of the house." Noted. Contacted and informed Dr. Conklin per situation, and per MD ordered social work order for transfer to [facility]. Left message for social worker psychiatric. Order entered, noted, and carried out. Will continue to monitor patient.
--- NOTE | 2018-03-12 10:10 | NUR ---
NURSE NOTES: Spoke with trimming caser, regarding patient and patient's son, Robert, request to transfer to [facility]. Anuradha acknowledged and is on the case. Noted.
--- NOTE | 2018-03-12 10:13 | NUR ---
DISCHARGE PLANNING PATIENT HAS BEENR EFERRED TO: [facility] P:[phone] F:[phone]
[2018-03-12 12:00] VITALS: BP 160/75
--- NOTE | 2018-03-12 12:02 | NUR ---
Social Service Note YAS met with patient and spoke with patient's son Robert Rendon [phone]. Patient states [facility] [place]. Patient was discharged on March 08 and flew to [place] to stay with his son Lucas. Yesterday patient states his son called two soldiers (patient thought from the [facility]) picked him up and brought him to the hospital. Patient states upon leaving his son's home he was informed he could not return. Patient believes due to the lack of financial resources ([facility] pension check $140.05 a month and no social security) son doesn't want to be responsible for his care. Patient states once he is medically appropriate he plans to go to the airport and purchase a ticket to return to [place]. Patient states his visit to [place] was only to be a short stay. [facility] patient. YAS explained the process of a [facility] transfer. YAS spoke with Robert to obtained additional information. Robert is currently out of town in [place] and will be returning Thursday. Robert has been unable to reach his brother Lucas [phone] who patient was staying with. Robert is not sure what happened and why his brother would have patient "removed" from the home. Robert states the plan is for patient to return to [place] but doesn't feel patient would be able to navigate himself independently from hospital to airport with unknown availability of a fight. Son is also concerned with patient's medical health. Robert will be able to assist upon his return to [place]. YAS unable to reach Lucas and unable to leave a message. Robert states he also has been unable to reach his brother. [facility] ID#[id number] Plan ID#[id number] Patient requires shoes size 10 2. Will continue to monitor.
--- NOTE | 2018-03-12 14:38 | Nephrology Progress Note ---
Assessment/Plan Problem List: (1) CHARLIE (acute kidney injury) (2) Proteinuria (3) Congestive heart failure (CHF) (4) Anasarca Assessment Anemia, Proteinuria, HypoAlbuminemia, Renal Failure ? Diabetic ? Amyloidosis HTN ? CHF Plan 24 H urine protein in progress SPEP UPEP HgbA1c : 6.2 BP control 2D echo noted down on lasix per orders Subjective ROS Limited/Unobtainable: No Constitutional: Reports: malaise Objective Objective Last 24 Hour Vital Signs Date Time Temp Pulse Resp B/P (MAP) Pulse Ox O2 Delivery O2 Flow Rate FiO2 03/12/18 12:00 76 03/12/18 12:00 98.5 72 16 160/75 (103) 95 03/12/18 08:54 Room Air 03/12/18 08:10 72 137/75 03/12/18 08:00 85 03/12/18 08:00 98.4 81 16 137/86 (103) 94 03/12/18 04:00 98.0 66 18 133/79 (97) 94 03/12/18 03:43 86 03/12/18 00:00 98.4 78 18 139/83 (101) 93 03/11/18 23:19 77 03/11/18 21:05 69 137/59 03/11/18 21:00 Room Air 03/11/18 20:00 97.7 69 18 137/59 (85) 95 03/11/18 19:43 73 03/11/18 16:00 73 03/11/18 16:00 98.0 71 19 155/65 (95) 97 Intake and Output 03/11/18 03/12/18 18:59 06:59 Intake Total 620 ml 240 ml Output Total 900 ml 1200 ml Balance -280 ml -960 ml Intake Oral 620 ml 240 ml Output Urine Total 900 ml 1200 ml Laboratory Tests 03/12/18 04:55: White Blood Count 5.7, Red Blood Count 3.20L, Hemoglobin 8.3L, Hematocrit 26.5L , Mean Corpuscular Volume 83, Mean Corpuscular Hemoglobin 26.0L, Mean Corpuscular Hemoglobin Concent 31.4L, Red Cell Distribution Width 14.0, Platelet Count 225, Mean Platelet Volume 6.1L, Neutrophils (%) (Auto) 45.1, Lymphocytes (%) (Auto) 37.3, Monocytes (%) (Auto) 9.2, Eosinophils (%) (Auto) 7.4H, Basophils (%) (Auto) 1.0, Sodium Level 141, Potassium Level 4.0, Chloride Level 109H, Carbon Dioxide Level 27, Anion Gap 5, Blood Urea Nitrogen 29H, Creatinine 1.6H, Estimat Glomerular Filtration Rate , Glucose Level 85, Hemoglobin A1c 6.2H, Uric Acid 8.9H, Calcium Level 7.9L, Phosphorus Level 3.6, Magnesium Level 1.8, Ferritin 146, Total Bilirubin 0.2, Gamma Glutamyl Transpeptidase 9, Aspartate Amino Transf (AST/SGOT) 18, Alanine Aminotransferase (ALT/SGPT) 13, Alkaline Phosphatase 67, Pro-B-Type Natriuretic Peptide 423H, Total Protein 4.9L, Total Protein (PEP) [Pending], Albumin 1.3L, Albumin (PEP) [Pending], Globulin 3.6, Globulin (PEP) [Pending], Albumin/ Globulin Ratio [Pending], [id number] [Pending], [id number] [ Pending], Beta Globulins [Pending], Beta Gamma Globulin [Pending], PEP Abnormal Protein Bands [Pending], Protein Electrophoresis Interpret [Pending], Vitamin B12 Level 337, Folate 5.2L, Thyroid Stimulating Hormone (TSH) 5.762H Height (Feet): 5 Height (Inches): 11.00 Weight (Pounds): 288 General Appearance: no apparent distress Cardiovascular: regular rhythm Respiratory/Chest: decreased breath sounds Abdomen: distended Objective no change Arcadio Guevara MD Mar 12, 2018 14:38
--- NOTE | 2018-03-12 15:00 | NUR ---
NURSE NOTES: 24 hour urine collection sent to lab. Spoke with Riki from lab regarding 24 hour urine collection. Riki acknowledged. Noted. Addendum: 03/12/18 at 1528 by ROBERT BLACKBURN RN NURSE NOTES: Correction: 24 hour urine collections ends at 1930. Returned urine collection bottle to patient's room and will continue collection.
--- NOTE | 2018-03-12 15:21 | Pulmonology Progress Note ---
Assessment/Plan Problems: (1) Glomerulonephritis (2) Anasarca (3) Proteinuria (4) CHARLIE (acute kidney injury) (5) Anemia Assessment/Plan -Monitor volumes and renal function, lasix decreased -F/U cards and renal recs -F/U studies (SPEP, UPEP, urine studies, renal US), may need renal Bx -Heme eval -CT CAP -ENDO eval pending given abnl TFT's -Cardiac diet -Transfer pending to [place] DVT Prophylaxis: HEP SQ Code status: full Hospital Classification declaration: Based on this initial evaluation, and depending on the patient's clinical course, I anticipate that this patient will require hospitalization for 2-3 days. Disposition: Once the patient is stable to leave the hospital, I anticipate the patient will likely be discharged to the following environment Subjective Allergies: Coded Allergies: No Known Allergies (Unverified , 03/10/18) Subjective AFVSS on RA TTE with normal EF Less SOB no cough no wheezing no SOB no F/C Objective Last 24 Hour Vital Signs Date Time Temp Pulse Resp B/P (MAP) Pulse Ox O2 Delivery O2 Flow Rate FiO2 03/12/18 12:00 76 03/12/18 12:00 98.5 72 16 160/75 (103) 95 03/12/18 08:54 Room Air 03/12/18 08:10 72 137/75 03/12/18 08:00 85 03/12/18 08:00 98.4 81 16 137/86 (103) 94 03/12/18 04:00 98.0 66 18 133/79 (97) 94 03/12/18 03:43 86 03/12/18 00:00 98.4 78 18 139/83 (101) 93 03/11/18 23:19 77 03/11/18 21:05 69 137/59 03/11/18 21:00 Room Air 03/11/18 20:00 97.7 69 18 137/59 (85) 95 03/11/18 19:43 73 03/11/18 16:00 73 03/11/18 16:00 98.0 71 19 155/65 (95) 97 Intake and Output 03/11/18 03/12/18 18:59 06:59 Intake Total 620 ml 240 ml Output Total 900 ml 1200 ml Balance -280 ml -960 ml Intake Oral 620 ml 240 ml Output Urine Total 900 ml 1200 ml General Appearance: WD/WN, no acute distress HEENT: normocephalic, atraumatic, anicteric, mucous membranes moist Respiratory/Chest: chest wall non-tender, lungs clear - decreased @ bases, crackles/rales Cardiovascular: normal peripheral pulses, normal rate, regular rhythm Abdomen: normal bowel sounds, soft, non tender, no organomegaly, non distended Extremities: no cyanosis, no clubbing, other - 1+ BAKARI Microbiology Date/Time Source Procedure Growth Status 03/10/18 14:20 Urine,Clean Catch Urine Culture - Preliminary NO GROWTH AFTER 24 HOURS Resulted Laboratory Tests 03/12/18 04:55: White Blood Count 5.7, Red Blood Count 3.20L, Hemoglobin 8.3L, Hematocrit 26.5L , Mean Corpuscular Volume 83, Mean Corpuscular Hemoglobin 26.0L, Mean Corpuscular Hemoglobin Concent 31.4L, Red Cell Distribution Width 14.0, Platelet Count 225, Mean Platelet Volume 6.1L, Neutrophils (%) (Auto) 45.1, Lymphocytes (%) (Auto) 37.3, Monocytes (%) (Auto) 9.2, Eosinophils (%) (Auto) 7.4H, Basophils (%) (Auto) 1.0, Sodium Level 141, Potassium Level 4.0, Chloride Level 109H, Carbon Dioxide Level 27, Anion Gap 5, Blood Urea Nitrogen 29H, Creatinine 1.6H, Estimat Glomerular Filtration Rate , Glucose Level 85, Hemoglobin A1c 6.2H, Uric Acid 8.9H, Calcium Level 7.9L, Phosphorus Level 3.6, Magnesium Level 1.8, Ferritin 146, Total Bilirubin 0.2, Gamma Glutamyl Transpeptidase 9, Aspartate Amino Transf (AST/SGOT) 18, Alanine Aminotransferase (ALT/SGPT) 13, Alkaline Phosphatase 67, Pro-B-Type Natriuretic Peptide 423H, Total Protein 4.9L, Total Protein (PEP) [Pending], Albumin 1.3L, Albumin (PEP) [Pending], Globulin 3.6, Globulin (PEP) [Pending], Albumin/ Globulin Ratio [Pending], Fzouq-6-Ayzcnftqo [Pending], Gfjim-6-Nejepyptq [ Pending], Beta Globulins [Pending], Beta Gamma Globulin [Pending], PEP Abnormal Protein Bands [Pending], Protein Electrophoresis Interpret [Pending], Vitamin B12 Level 337, Folate 5.2L, Thyroid Stimulating Hormone (TSH) 5.762H Current Medications Medications (Trade) Dose Ordered Sig/Panfilo Route PRN Reason Start Time Stop Time Status Last Admin Dose Admin Acetaminophen (Tylenol) 650 mg Q6H PRN ORAL Mild Pain/Temp > 100.5 03/11/18 09:45 04/10/18 09:44 Carvedilol (Coreg) 6.25 mg EVERY 12 HOURS ORAL 03/10/18 21:00 04/09/18 20:59 03/12/18 08:10 Clonidine HCl (Catapres Tab) 0.1 mg Q4H PRN ORAL sbp>170mmHg 03/11/18 14:15 04/09/18 18:44 Cyanocobalamin (Vitamin B12) 1,000 mcg ONCE ONCE SUBQ 03/12/18 16:00 03/12/18 16:01 Folic Acid (Folate) 3 mg DAILY ORAL 03/12/18 14:45 04/11/18 14:44 Furosemide (Lasix) 40 mg DAILY IV 03/13/18 09:00 04/09/18 20:59 Heparin Sodium (Porcine) (Heparin 5000 units/ml) 5,000 units EVERY 12 HOURS SUBQ 03/11/18 21:00 04/10/18 20:59 03/11/18 21:07 Ondansetron HCl (Zofran) 4 mg Q6H PRN IVP Nausea & Vomiting 03/11/18 09:45 04/10/18 09:44 Pantoprazole (Protonix) 40 mg DAILY ORAL 03/11/18 14:30 04/10/18 14:29 03/12/18 08:09 Tamsulosin HCl (Flomax) 0.4 mg BEDTIME ORAL 03/11/18 21:00 04/10/18 20:59 03/11/18 21:05 Rambo Conklin MD Mar 12, 2018 15:21
--- NOTE | 2018-03-12 15:31 | Cardiac Electrophysiology PN ---
Assessment/Plan Assessment/Plan 1. Severe bilateral lower extremity edema. Echocardiogram EF 60%. His creatinine is also elevated at 1.6. On Lasix 40 mg IV daily 2. Hypertension. Continue Lasix and Coreg 6.25 mg b.i.d. Avoid BOBBY inhibitor and angiotensin-receptor blockers in view of his renal failure at this point. 3. Morbid obesity. Subjective Subjective Diuresing well. No CP or SOB. Objective Last 24 Hour Vital Signs Date Time Temp Pulse Resp B/P (MAP) Pulse Ox O2 Delivery O2 Flow Rate FiO2 03/12/18 12:00 76 03/12/18 12:00 98.5 72 16 160/75 (103) 95 03/12/18 08:54 Room Air 03/12/18 08:10 72 137/75 03/12/18 08:00 85 03/12/18 08:00 98.4 81 16 137/86 (103) 94 03/12/18 04:00 98.0 66 18 133/79 (97) 94 03/12/18 03:43 86 03/12/18 00:00 98.4 78 18 139/83 (101) 93 03/11/18 23:19 77 03/11/18 21:05 69 137/59 03/11/18 21:00 Room Air 03/11/18 20:00 97.7 69 18 137/59 (85) 95 03/11/18 19:43 73 03/11/18 16:00 73 03/11/18 16:00 98.0 71 19 155/65 (95) 97 Intake and Output 03/11/18 03/12/18 19:00 07:00 Intake Total 620 ml 240 ml Output Total 900 ml 1200 ml Balance -280 ml -960 ml Intake Oral 620 ml 240 ml Output Urine Total 900 ml 1200 ml Laboratory Tests Test 03/12/18 04:55 White Blood Count 5.7 K/UL (4.8-10.8) Red Blood Count 3.20 M/UL (4.70-6.10) L Hemoglobin 8.3 G/DL (14.2-18.0) L Hematocrit 26.5 % (42.0-52.0) L Mean Corpuscular Volume 83 FL (80-99) Mean Corpuscular Hemoglobin 26.0 PG (27.0-31.0) L Mean Corpuscular Hemoglobin Concent 31.4 G/DL (32.0-36.0) L Red Cell Distribution Width 14.0 % (11.6-14.8) Platelet Count 225 K/UL (150-450) Mean Platelet Volume 6.1 FL (6.5-10.1) L Neutrophils (%) (Auto) 45.1 % (45.0-75.0) Lymphocytes (%) (Auto) 37.3 % (20.0-45.0) Monocytes (%) (Auto) 9.2 % (1.0-10.0) Eosinophils (%) (Auto) 7.4 % (0.0-3.0) H Basophils (%) (Auto) 1.0 % (0.0-2.0) Sodium Level 141 MMOL/L (136-145) Potassium Level 4.0 MMOL/L (3.5-5.1) Chloride Level 109 MMOL/L (98-107) H Carbon Dioxide Level 27 MMOL/L (21-32) Anion Gap 5 mmol/L (5-15) Blood Urea Nitrogen 29 mg/dL (7-18) H Creatinine 1.6 MG/DL (0.55-1.30) H Estimat Glomerular Filtration Rate mL/min (>60) Glucose Level 85 MG/DL (74-106) Hemoglobin A1c 6.2 % (4.3-6.0) H Uric Acid 8.9 MG/DL (2.6-7.2) H Calcium Level 7.9 MG/DL (8.5-10.1) L Phosphorus Level 3.6 MG/DL (2.5-4.9) Magnesium Level 1.8 MG/DL (1.8-2.4) Ferritin 146 NG/ML (8-388) Total Bilirubin 0.2 MG/DL (0.2-1.0) Gamma Glutamyl Transpeptidase 9 U/L (5-85) Aspartate Amino Transf (AST/SGOT) 18 U/L (15-37) Alanine Aminotransferase (ALT/SGPT) 13 U/L (12-78) Alkaline Phosphatase 67 U/L (46-116) Pro-B-Type Natriuretic Peptide 423 pg/mL (0-125) H Total Protein 4.9 G/DL (6.4-8.2) L Total Protein (PEP) Pending Albumin 1.3 G/DL (3.4-5.0) L Albumin (PEP) Pending Globulin 3.6 g/dL Globulin (PEP) Pending Albumin/Globulin Ratio Pending Ppvhy-3-Mrnrgqtfi Pending Bhoaw-9-Edssrfuhl Pending Beta Globulins Pending Beta Gamma Globulin Pending PEP Abnormal Protein Bands Pending Protein Electrophoresis Interpret Pending Vitamin B12 Level 337 PG/ML (193-986) Folate 5.2 NG/ML (8.6-58.9) L Thyroid Stimulating Hormone (TSH) 5.762 uiU/mL (0.358-3.740) Microbiology Date/Time Source Procedure Growth Status 03/10/18 14:20 Urine,Clean Catch Urine Culture - Preliminary NO GROWTH AFTER 24 HOURS Resulted Objective HEAD AND NECK: Mild JVD. LUNGS: Decreased breath sounds. CARDIOVASCULAR: Regular S1 and S2 with no gallop. ABDOMEN: Soft. EXTREMITIES: 2+ pitting edema. Jose Chairez MD Mar 12, 2018 15:31
[2018-03-12 16:00] VITALS: BP 145/79
[2018-03-12] MEDS ORDERED: Vitamin B12 1000mcg/ml Inj SUBQ ONE (16:00)
--- NOTE | 2018-03-12 18:50 | General Progress Note ---
Assessment/Plan Problem List: (1) Hypothyroidism ICD Codes: E03.9 - Hypothyroidism, unspecified SNOMED: 24083972 (2) Anasarca ICD Codes: R60.1 - Generalized edema SNOMED: 650769132, 862197122 (3) Proteinuria ICD Codes: R80.9 - Proteinuria, unspecified SNOMED: 12415835, 702701969 (4) Congestive heart failure (CHF) ICD Codes: I50.9 - Heart failure, unspecified SNOMED: 91286067, 697850505 Assessment/Plan will start on low dose Levothyroxine 25 mcg daily repeat TSH, free T4 in 4 weeks Subjective Allergies: Coded Allergies: No Known Allergies (Unverified , 03/10/18) All Systems: reviewed and negative except above Subjective States that about a month ago he noted that he began having swelling all over his body. He states that he has been having leg swelling and arm swelling. He did see his primary care physician at the [place] clinic. He states he admitted to hospital for several weeks. Unfortunately, the patient is a poor historian and has no family or medical information with him. He is unable to articulate any of his medical conditions or his medications. He did not bring a list or his medications with him. He states that he is visiting [facility] at this time. He will medications. He denies heart or lung problems. He denies diabetes. He states he believes he has high blood pressure. He denies history of stroke. He denies pain. He denies recent illness. He denies cough or congestion. He denies fever or chills. He denies chest pain or shortness of breath. He denies abdominal pain. He denies dysuria or hematuria. He has no other complaints. TSH is mildly elevated and confirmed free T4 is low normal Objective Last 24 Hour Vital Signs Date Time Temp Pulse Resp B/P (MAP) Pulse Ox O2 Delivery O2 Flow Rate FiO2 03/12/18 12:00 76 03/12/18 12:00 98.5 72 16 160/75 (103) 95 03/12/18 08:54 Room Air 03/12/18 08:10 72 137/75 03/12/18 08:00 85 03/12/18 08:00 98.4 81 16 137/86 (103) 94 03/12/18 04:00 98.0 66 18 133/79 (97) 94 03/12/18 03:43 86 03/12/18 00:00 98.4 78 18 139/83 (101) 93 03/11/18 23:19 77 03/11/18 21:05 69 137/59 03/11/18 21:00 Room Air 03/11/18 20:00 97.7 69 18 137/59 (85) 95 03/11/18 19:43 73 Intake and Output 03/11/18 03/12/18 18:59 06:59 Intake Total 620 ml 240 ml Output Total 900 ml 1200 ml Balance -280 ml -960 ml Intake Oral 620 ml 240 ml Output Urine Total 900 ml 1200 ml Laboratory Tests 03/12/18 04:55: White Blood Count 5.7, Red Blood Count 3.20L, Hemoglobin 8.3L, Hematocrit 26.5L , Mean Corpuscular Volume 83, Mean Corpuscular Hemoglobin 26.0L, Mean Corpuscular Hemoglobin Concent 31.4L, Red Cell Distribution Width 14.0, Platelet Count 225, Mean Platelet Volume 6.1L, Neutrophils (%) (Auto) 45.1, Lymphocytes (%) (Auto) 37.3, Monocytes (%) (Auto) 9.2, Eosinophils (%) (Auto) 7.4H, Basophils (%) (Auto) 1.0, Sodium Level 141, Potassium Level 4.0, Chloride Level 109H, Carbon Dioxide Level 27, Anion Gap 5, Blood Urea Nitrogen 29H, Creatinine 1.6H, Estimat Glomerular Filtration Rate , Glucose Level 85, Hemoglobin A1c 6.2H, Uric Acid 8.9H, Calcium Level 7.9L, Phosphorus Level 3.6, Magnesium Level 1.8, Ferritin 146, Total Bilirubin 0.2, Gamma Glutamyl Transpeptidase 9, Aspartate Amino Transf (AST/SGOT) 18, Alanine Aminotransferase (ALT/SGPT) 13, Alkaline Phosphatase 67, Pro-B-Type Natriuretic Peptide 423H, Total Protein 4.9L, Total Protein (PEP) [Pending], Albumin 1.3L, Albumin (PEP) [Pending], Globulin 3.6, Globulin (PEP) [Pending], Albumin/ Globulin Ratio [Pending], Gqycd-7-Twlxpjamn [Pending], Ihmrb-6-Rjcccuraq [ Pending], Beta Globulins [Pending], Beta Gamma Globulin [Pending], PEP Abnormal Protein Bands [Pending], Protein Electrophoresis Interpret [Pending], Vitamin B12 Level 337, Folate 5.2L, Thyroid Stimulating Hormone (TSH) 5.762H Height (Feet): 5 Height (Inches): 11.00 Weight (Pounds): 288 General Appearance: no apparent distress Neck: normal alignment Cardiovascular: tachycardia Respiratory/Chest: decreased breath sounds Abdomen: normal bowel sounds Edema: 1+ Arm (L), 1+ Arm (R), 1+ Leg (L), 1+ Leg (R), 1+ Pedal (L), 1+ Pedal ( R), 1+ Generalized Objective Current Medications Medications (Trade) Dose Ordered Sig/Panfilo Route PRN Reason Start Time Stop Time Status Last Admin Dose Admin Acetaminophen (Tylenol) 650 mg Q6H PRN ORAL Mild Pain/Temp > 100.5 03/11/18 09:45 04/10/18 09:44 Barium Sulfate (Readi-Cat 2) 450 ml NOW PRN ORAL Radiology Procedure 03/12/18 15:30 03/14/18 15:21 Carvedilol (Coreg) 6.25 mg EVERY 12 HOURS ORAL 03/10/18 21:00 04/09/18 20:59 03/12/18 08:10 Clonidine HCl (Catapres Tab) 0.1 mg Q4H PRN ORAL sbp>170mmHg 03/11/18 14:15 04/09/18 18:44 Folic Acid (Folate) 3 mg DAILY ORAL 03/12/18 14:45 04/11/18 14:44 03/12/18 16:23 Furosemide (Lasix) 40 mg DAILY IV 03/13/18 09:00 04/09/18 20:59 Heparin Sodium (Porcine) (Heparin 5000 units/ml) 5,000 units EVERY 12 HOURS SUBQ 03/11/18 21:00 04/10/18 20:59 03/11/18 21:07 Ondansetron HCl (Zofran) 4 mg Q6H PRN IVP Nausea & Vomiting 03/11/18 09:45 04/10/18 09:44 Pantoprazole (Protonix) 40 mg DAILY ORAL 03/11/18 14:30 04/10/18 14:29 03/12/18 08:09 Tamsulosin HCl (Flomax) 0.4 mg BEDTIME ORAL 03/11/18 21:00 04/10/18 20:59 03/11/18 21:05 Sascha Hernandez MD Mar 12, 2018 18:50
--- NOTE | 2018-03-12 19:15 | NUR ---
NURSE NOTES: Received patient from FRANKY Horton. 24 hour urine collection sent to the lab. Patient asleep. No signs of distress. Denies pain. Social Service concerns has been addressed. Call light within reach. Bed brakes engaged. NPO at midnight for a procedure to be done in AM. Patient aware.
--- NOTE | 2018-03-12 19:25 | NUR ---
HAND-OFF: Report given to FRANKY Hart.
[2018-03-12 20:00] VITALS: BP 146/79
[2018-03-12] MEDS: Tamsulosin 0.4mg cap ORAL SCH (21:07)
[2018-03-13] VITALS: BP 176/82
[2018-03-13 04:00] VITALS: BP 159/61
[2018-03-13] MEDS: Levothyroxine 25mcg tab ORAL SCH (06:11)
--- NOTE | 2018-03-13 07:21 | NUR ---
HAND-OFF: Report given to Eom, RN. Endorsed plan of care.
--- NOTE | 2018-03-13 07:57 | NUR ---
NURSE NOTES: Received report from FRANKY Hart. Patient is in stable condition. No acute distress/SOB noted. Patient is on NPO for CT ABD wo/ contrast. Will continue plan of care.
[2018-03-13 08:00] VITALS: BP 169/72
[2018-03-13] MEDS: Carvedilol 6.25mg Tab ORAL SCH ×2 (09:48→20:30)
[2018-03-13] MEDS: Heparin 5000 units/ml inj SUBQ SCH ×2 (09:48→20:30)
[2018-03-13 12:00] VITALS: BP 153/80
--- NOTE | 2018-03-13 12:06 | Consultation ---
History of Present Illness General Date patient seen: Mar 13, 2018 Chief Complaint: Edema Present Illness Allergies: Coded Allergies: No Known Allergies (Unverified , 03/10/18) Medication History Unable to Obtain Active Prescriptions or Reported Meds Patient History Healthcare decision maker Resuscitation status Full Code Advanced Directive on File Physical Exam Last 24 Hour Vital Signs Date Time Temp Pulse Resp B/P (MAP) Pulse Ox O2 Delivery O2 Flow Rate FiO2 03/13/18 09:48 67 169/72 03/13/18 09:00 Room Air 03/13/18 08:00 98.5 67 20 169/72 (104) 96 03/13/18 08:00 70 03/13/18 04:00 97.0 69 20 159/61 (93) 95 03/13/18 04:00 65 03/13/18 01:29 176/82 03/13/18 00:00 99.2 77 18 176/82 (113) 100 03/12/18 23:57 79 03/12/18 21:07 69 146/79 03/12/18 21:00 Room Air 03/12/18 20:04 72 03/12/18 20:00 98.5 69 22 146/79 (101) 99 03/12/18 16:00 97.3 77 16 145/79 (101) 93 03/12/18 16:00 80 03/12/18 12:00 76 03/12/18 12:00 98.5 72 16 160/75 (103) 95 Intake and Output 03/12/18 03/13/18 19:00 07:00 Intake Total 480 ml 200 ml Output Total 400 ml 700 ml Balance 80 ml -500 ml Intake Oral 480 ml 200 ml Output Urine Total 400 ml 700 ml # Voids 2 3 Height (Feet): 5 Height (Inches): 11.00 Weight (Pounds): 288 Medications Current Medications Medications (Trade) Dose Ordered Sig/Panfilo Route PRN Reason Start Time Stop Time Status Last Admin Dose Admin Acetaminophen (Tylenol) 650 mg Q6H PRN ORAL Mild Pain/Temp > 100.5 03/11/18 09:45 04/10/18 09:44 Barium Sulfate (Readi-Cat 2) 450 ml NOW PRN ORAL Radiology Procedure 03/12/18 15:30 03/14/18 15:21 Carvedilol (Coreg) 6.25 mg EVERY 12 HOURS ORAL 03/10/18 21:00 04/09/18 20:59 03/13/18 09:48 Clonidine HCl (Catapres Tab) 0.1 mg Q4H PRN ORAL sbp>170mmHg 03/11/18 14:15 04/09/18 18:44 03/13/18 01:29 Folic Acid (Folate) 3 mg DAILY ORAL 03/12/18 14:45 04/11/18 14:44 03/13/18 09:48 Furosemide (Lasix) 40 mg DAILY IV 03/13/18 09:00 04/09/18 20:59 03/13/18 09:47 Heparin Sodium (Porcine) (Heparin 5000 units/ml) 5,000 units EVERY 12 HOURS SUBQ 03/11/18 21:00 04/10/18 20:59 03/13/18 09:48 Levothyroxine Sodium (Synthroid) 25 mcg DAILY@0630 ORAL 03/13/18 06:30 04/12/18 06:29 03/13/18 06:11 Ondansetron HCl (Zofran) 4 mg Q6H PRN IVP Nausea & Vomiting 03/11/18 09:45 04/10/18 09:44 Pantoprazole (Protonix) 40 mg DAILY ORAL 03/11/18 14:30 04/10/18 14:29 03/13/18 09:48 Tamsulosin HCl (Flomax) 0.4 mg BEDTIME ORAL 03/11/18 21:00 04/10/18 20:59 03/12/18 21:07 Assessment/Plan Status Narrative Hematology Evaluation REQ : Rubin RFC: Anemia eval, occult malignancy eval DOS: 03.13.18 HPI 82 y old female states that about a month ago he noted that he began having swelling all over his body. He states that he has been having leg swelling and arm swelling. He did see his primary care physician at the [place] clinic. He states he admitted to hospital for several weeks. Unfortunately, the patient is a poor historian and has no family or medical information with him. He is unable to articulate any of his medical conditions or his medications. He did not bring a list or his medications with him. He states that he is visiting [facility] at this time. He will medications. He denies heart or lung problems. He denies diabetes. He states he believes he has high blood pressure. He denies history of stroke. He denies pain. He denies recent illness. He denies cough or congestion. He denies fever or chills. He denies chest pain or shortness of breath. He denies abdominal pain. He denies dysuria or hematuria. He has no other complaints. On 24hr urine noted to have 7gm and heme consulted to r/o malignancy Allergies: No Known Allergies (Unverified , 03/10/18) Past Medical History: see triage record, unable to obtain, HTN Social History: Denies: smoking, alcohol use, drug use Reviewed Nursing Documentation: PMH: Agreed; PSxH: Agreed Review other Systems: negative except mentioned in HPI Vital Signs Last 24 Hour Vital Signs Date Time Temp Pulse Resp B/P (MAP) Pulse Ox O2 Delivery O2 Flow Rate FiO2 03/13/18 09:48 67 169/72 03/13/18 09:00 Room Air 03/13/18 08:00 98.5 67 20 169/72 (104) 96 03/13/18 08:00 70 03/13/18 04:00 97.0 69 20 159/61 (93) 95 03/13/18 04:00 65 03/13/18 01:29 176/82 03/13/18 00:00 99.2 77 18 176/82 (113) 100 03/12/18 23:57 79 03/12/18 21:07 69 146/79 03/12/18 21:00 Room Air 03/12/18 20:04 72 03/12/18 20:00 98.5 69 22 146/79 (101) 99 03/12/18 16:00 97.3 77 16 145/79 (101) 93 03/12/18 16:00 80 General Appearance: no apparent distress Head: normocephalic, atraumatic Eyes: bilateral eye normal inspection, bilateral eye PERRL ENT: hearing grossly normal, normal pharynx Neck: full range of motion, supple/symm/no masses Respiratory: chest non-tender, lungs clear, normal breath sounds, no respiratory distress Cardiovascular: regular rate, rhythm, no edema, edema - BLE and BUE edema Gastrointestinal: normal bowel sounds, non tender Neurologic: alert, oriented x3, responsive Psychiatric: judgement/insight normal, mood/affect normal Skin: normal color, ++ anasarca Labs: reviewed Imaging: pending Assessment and Recs: # Anemia of chronic disease - reviewed w/u, was ordered earlier --> spep is still pending to eval if any band restrictions are noted --> anemia panel has been ordered, tsh as well --> endo, cards and renal recs reviewed --> transfuse if hgb is less than 7 --> For ocult malignancy, eval for ct C/A/P # Anasarca -- potentially proteinuria related --> further recs per neprho --> eval with cards as well if chf # CHARLIE (acute kidney injury) # Proteinuria # Glomerulonephritis # Congestive heart failure (CHF) The time of encounter does not reflect the time of the note Greatly appreciate consultation! Alexx Medina MD Mar 13, 2018 12:06
--- NOTE | 2018-03-13 12:19 | Cardiac Electrophysiology PN ---
Assessment/Plan Assessment/Plan 1. Severe bilateral lower extremity edema. Echocardiogram EF 60%. His creatinine is also elevated at 1.6. On Lasix 40 mg IV daily 2. Hypertension. Continue Lasix and Coreg 6.25 mg b.i.d. Avoid BOBBY inhibitor and angiotensin-receptor blockers in view of his renal failure at this point. 3. Morbid obesity. Transfer pending to [place] Subjective Subjective Diuresing well. No CP or SOB.Scheduled for Ct scan Objective Last 24 Hour Vital Signs Date Time Temp Pulse Resp B/P (MAP) Pulse Ox O2 Delivery O2 Flow Rate FiO2 03/13/18 12:00 98.3 69 20 153/80 (104) 98 03/13/18 09:48 67 169/72 03/13/18 09:00 Room Air 03/13/18 08:00 98.5 67 20 169/72 (104) 96 03/13/18 08:00 70 03/13/18 04:00 97.0 69 20 159/61 (93) 95 03/13/18 04:00 65 03/13/18 01:29 176/82 03/13/18 00:00 99.2 77 18 176/82 (113) 100 03/12/18 23:57 79 03/12/18 21:07 69 146/79 03/12/18 21:00 Room Air 03/12/18 20:04 72 03/12/18 20:00 98.5 69 22 146/79 (101) 99 03/12/18 16:00 97.3 77 16 145/79 (101) 93 03/12/18 16:00 80 Intake and Output 03/12/18 03/13/18 19:00 07:00 Intake Total 480 ml 200 ml Output Total 400 ml 700 ml Balance 80 ml -500 ml Intake Oral 480 ml 200 ml Output Urine Total 400 ml 700 ml # Voids 2 3 Microbiology Date/Time Source Procedure Growth Status 03/10/18 14:20 Urine,Clean Catch Urine Culture - Final Diphtheroids Complete Objective HEAD AND NECK: Mild JVD. LUNGS: Decreased breath sounds. CARDIOVASCULAR: Regular S1 and S2 with no gallop. ABDOMEN: Soft. EXTREMITIES: 2+ pitting edema. Jose Chairez MD Mar 13, 2018 12:19
[2018-03-13] MEDS ORDERED: HydrALAZINE 25mg tab ORAL PRN (13:15)
--- NOTE | 2018-03-13 13:16 | Nephrology Progress Note ---
Assessment/Plan Problem List: (1) CHARLIE (acute kidney injury) (2) Proteinuria (3) Congestive heart failure (CHF) (4) Anasarca (5) Nephrotic syndrome Assessment Anemia, Proteinuria, HypoAlbuminemia, Renal Failure ? Diabetic ? Amyloidosis HTN ? CHF Plan 24 H urine protein close to 8 grams Protein SPEP UPEP HgbA1c : 6.2 BP control 2D echo noted down on lasix per orders Subjective ROS Limited/Unobtainable: No Constitutional: Reports: malaise Objective Objective Last 24 Hour Vital Signs Date Time Temp Pulse Resp B/P (MAP) Pulse Ox O2 Delivery O2 Flow Rate FiO2 03/13/18 12:00 98.3 69 20 153/80 (104) 98 03/13/18 09:48 67 169/72 03/13/18 09:00 Room Air 03/13/18 08:00 98.5 67 20 169/72 (104) 96 03/13/18 08:00 70 03/13/18 04:00 97.0 69 20 159/61 (93) 95 03/13/18 04:00 65 03/13/18 01:29 176/82 03/13/18 00:00 99.2 77 18 176/82 (113) 100 03/12/18 23:57 79 03/12/18 21:07 69 146/79 03/12/18 21:00 Room Air 03/12/18 20:04 72 03/12/18 20:00 98.5 69 22 146/79 (101) 99 03/12/18 16:00 97.3 77 16 145/79 (101) 93 03/12/18 16:00 80 Intake and Output 03/12/18 03/13/18 19:00 07:00 Intake Total 480 ml 200 ml Output Total 400 ml 700 ml Balance 80 ml -500 ml Intake Oral 480 ml 200 ml Output Urine Total 400 ml 700 ml # Voids 2 3 Current Medications Medications (Trade) Dose Ordered Sig/Panfilo Route PRN Reason Start Time Stop Time Status Last Admin Dose Admin Acetaminophen (Tylenol) 650 mg Q6H PRN ORAL Mild Pain/Temp > 100.5 03/11/18 09:45 04/10/18 09:44 Barium Sulfate (Readi-Cat 2) 450 ml NOW PRN ORAL Radiology Procedure 03/12/18 15:30 03/14/18 15:21 Carvedilol (Coreg) 6.25 mg EVERY 12 HOURS ORAL 03/10/18 21:00 04/09/18 20:59 03/13/18 09:48 Clonidine HCl (Catapres Tab) 0.1 mg Q4H PRN ORAL sbp>170mmHg 03/11/18 14:15 04/09/18 18:44 03/13/18 01:29 Folic Acid (Folate) 3 mg DAILY ORAL 03/12/18 14:45 04/11/18 14:44 03/13/18 09:48 Furosemide (Lasix) 40 mg DAILY IV 03/13/18 09:00 04/09/18 20:59 03/13/18 09:47 Heparin Sodium (Porcine) (Heparin 5000 units/ml) 5,000 units EVERY 12 HOURS SUBQ 03/11/18 21:00 04/10/18 20:59 03/13/18 09:48 Levothyroxine Sodium (Synthroid) 25 mcg DAILY@0630 ORAL 03/13/18 06:30 04/12/18 06:29 03/13/18 06:11 Ondansetron HCl (Zofran) 4 mg Q6H PRN IVP Nausea & Vomiting 03/11/18 09:45 04/10/18 09:44 Pantoprazole (Protonix) 40 mg DAILY ORAL 03/11/18 14:30 04/10/18 14:29 03/13/18 09:48 Tamsulosin HCl (Flomax) 0.4 mg BEDTIME ORAL 03/11/18 21:00 04/10/18 20:59 03/12/18 21:07 Labs Test 03/10/18 14:20 03/10/18 14:46 03/11/18 07:02 03/11/18 19:30 Urine Color Yellow Urine Appearance Slightly cloudy Urine pH 5 (4.5-8.0) Urine Specific [place] 1.015 (1.005-1.035) Urine Protein 4+ (NEGATIVE) Urine Glucose (UA) Negative (NEGATIVE) Urine Ketones Negative (NEGATIVE) Urine Blood 1+ (NEGATIVE) Urine Nitrite Negative (NEGATIVE) Urine Bilirubin Negative (NEGATIVE) Urine Urobilinogen Normal MG/DL (0.0-1.0) Urine Leukocyte Esterase 1+ (NEGATIVE) Urine RBC 2-4 /HPF (0 - 0) Urine WBC 5-10 /HPF (0 - 0) Urine Squamous Epithelial Cells None /LPF (NONE/OCC) Urine Amorphous Sediment Few /LPF (NONE) Urine Bacteria Moderate /HPF (NONE) White Blood Count 5.4 K/UL (4.8-10.8) Red Blood Count 3.48 M/UL (4.70-6.10) Hemoglobin 9.1 G/DL (14.2-18.0) Hematocrit 29.3 % (42.0-52.0) Mean Corpuscular Volume 84 FL (80-99) Mean Corpuscular Hemoglobin 26.2 PG (27.0-31.0) Mean Corpuscular Hemoglobin Concent 31.1 G/DL (32.0-36.0) Red Cell Distribution Width 14.4 % (11.6-14.8) Platelet Count 260 K/UL (150-450) Mean Platelet Volume 5.9 FL (6.5-10.1) Neutrophils (%) (Auto) 57.3 % (45.0-75.0) Lymphocytes (%) (Auto) 28.2 % (20.0-45.0) Monocytes (%) (Auto) 8.1 % (1.0-10.0) Eosinophils (%) (Auto) 5.5 % (0.0-3.0) Basophils (%) (Auto) 0.9 % (0.0-2.0) Prothrombin Time 10.2 SEC (9.30-11.50) Prothromb Time International Ratio 1.0 (0.9-1.1) Activated Partial Thromboplast Time 26 SEC (23-33) Sodium Level 146 MMOL/L (136-145) Potassium Level 4.1 MMOL/L (3.5-5.1) Chloride Level 113 MMOL/L (98-107) Carbon Dioxide Level 28 MMOL/L (21-32) Anion Gap 5 mmol/L (5-15) Blood Urea Nitrogen 35 mg/dL (7-18) Creatinine 1.8 MG/DL (0.55-1.30) Estimat Glomerular Filtration Rate mL/min (>60) Glucose Level 119 MG/DL (74-106) Calcium Level 8.0 MG/DL (8.5-10.1) Total Bilirubin 0.2 MG/DL (0.2-1.0) Aspartate Amino Transf (AST/SGOT) 20 U/L (15-37) Alanine Aminotransferase (ALT/SGPT) 17 U/L (12-78) Alkaline Phosphatase 72 U/L (46-116) Total Creatine Kinase 172 U/L (26-308) Creatine Kinase MB 0.6 NG/ML (0.0-3.6) Creatine Kinase MB Relative Index 0.3 Troponin I 0.013 ng/mL (0.000-0.056) 0.017 ng/mL (0.000-0.056) Pro-B-Type Natriuretic Peptide 384 pg/mL (0-125) 488 pg/mL (0-125) Total Protein 5.3 G/DL (6.4-8.2) Albumin 1.4 G/DL (3.4-5.0) Globulin 3.9 g/dL Albumin/Globulin Ratio 0.4 (1.0-2.7) C-Reactive Protein, Quantitative 1.1 mg/dL (0.00-0.90) Triglycerides Level 90 MG/DL (30-150) Cholesterol Level 162 MG/DL (< 200) LDL Cholesterol 92 mg/dL (<100) HDL Cholesterol 50 MG/DL (40-60) Cholesterol/HDL Ratio 3.2 (3.3-4.4) Thyroid Stimulating Hormone (TSH) 5.017 uiU/mL (0.358-3.740) Free Thyroxine 0.87 NG/DL (0.76-1.46) Urine Collection Time 24 HRS Urine Total Volume 2200 ML Urine Total Protein mg/dL 360 mg/dL Urine Total Protein 24 Hour 7920.0 mg/24hr (< 150) Test 03/12/18 04:55 White Blood Count 5.7 K/UL (4.8-10.8) Red Blood Count 3.20 M/UL (4.70-6.10) Hemoglobin 8.3 G/DL (14.2-18.0) Hematocrit 26.5 % (42.0-52.0) Mean Corpuscular Volume 83 FL (80-99) Mean Corpuscular Hemoglobin 26.0 PG (27.0-31.0) Mean Corpuscular Hemoglobin Concent 31.4 G/DL (32.0-36.0) Red Cell Distribution Width 14.0 % (11.6-14.8) Platelet Count 225 K/UL (150-450) Mean Platelet Volume 6.1 FL (6.5-10.1) Neutrophils (%) (Auto) 45.1 % (45.0-75.0) Lymphocytes (%) (Auto) 37.3 % (20.0-45.0) Monocytes (%) (Auto) 9.2 % (1.0-10.0) Eosinophils (%) (Auto) 7.4 % (0.0-3.0) Basophils (%) (Auto) 1.0 % (0.0-2.0) Sodium Level 141 MMOL/L (136-145) Potassium Level 4.0 MMOL/L (3.5-5.1) Chloride Level 109 MMOL/L (98-107) Carbon Dioxide Level 27 MMOL/L (21-32) Anion Gap 5 mmol/L (5-15) Blood Urea Nitrogen 29 mg/dL (7-18) Creatinine 1.6 MG/DL (0.55-1.30) Estimat Glomerular Filtration Rate mL/min (>60) Glucose Level 85 MG/DL (74-106) Hemoglobin A1c 6.2 % (4.3-6.0) Uric Acid 8.9 MG/DL (2.6-7.2) Calcium Level 7.9 MG/DL (8.5-10.1) Phosphorus Level 3.6 MG/DL (2.5-4.9) Magnesium Level 1.8 MG/DL (1.8-2.4) Ferritin 146 NG/ML (8-388) Total Bilirubin 0.2 MG/DL (0.2-1.0) Gamma Glutamyl Transpeptidase 9 U/L (5-85) Aspartate Amino Transf (AST/SGOT) 18 U/L (15-37) Alanine Aminotransferase (ALT/SGPT) 13 U/L (12-78) Alkaline Phosphatase 67 U/L (46-116) Pro-B-Type Natriuretic Peptide 423 pg/mL (0-125) Total Protein 4.9 G/DL (6.4-8.2) Albumin 1.3 G/DL (3.4-5.0) Globulin 3.6 g/dL Albumin/Globulin Ratio 0.4 (1.0-2.7) Vitamin B12 Level 337 PG/ML (193-986) Folate 5.2 NG/ML (8.6-58.9) Thyroid Stimulating Hormone (TSH) 5.762 uiU/mL (0.358-3.740) Height (Feet): 5 Height (Inches): 11.00 Weight (Pounds): 288 General Appearance: no apparent distress Cardiovascular: regular rhythm Respiratory/Chest: decreased breath sounds Abdomen: distended Objective no change Arcadio Guevara MD Mar 13, 2018 13:16
--- NOTE | 2018-03-13 14:33 | Diagnostic Imaging Report ---
EXAM: CT Chest Without Intravenous Contrast CLINICAL HISTORY: MASS TECHNIQUE: Axial computed tomography images of the chest without intravenous contrast. Combined chest, abdomen, and pelvis CTDI is 20 mGy and DLP is 1352 mGy-cm. One or more of the following dose reduction techniques were used: automated exposure control, adjustment of the mA and/or kV according to patient size, use of iterative reconstruction technique. COMPARISON: No relevant prior studies available. FINDINGS: Lungs: Unremarkable. No mass. No consolidation. Pleural space: Small right pleural effusion and trace left pleural effusion. No pneumothorax. Heart: Coronary artery calcifications. No significant pericardial effusion. Thyroid: 2.3 x 2.2 x 1.8 cm hypodense nodule in the thyroid isthmus. Bones/joints: Right convex thoracic scoliotic curvature with associated multilevel degenerative changes. No acute fracture. No dislocation. Soft tissues: Unremarkable. Vasculature: Unremarkable. No thoracic aortic aneurysm. Lymph nodes: Unremarkable. No enlarged lymph nodes. IMPRESSION: 1. Small right pleural effusion and trace left pleural effusion. 2. 2.3 x 2.2 x 1.8 cm hypodense nodule in the thyroid isthmus. Recommend further evaluation with thyroid ultrasound. 3. Coronary artery calcifications. 4. Right convex thoracic scoliotic curvature with associated multilevel degenerative changes. EXAM: CT Abdomen and Pelvis Without Intravenous Contrast CLINICAL HISTORY: MASS TECHNIQUE: Axial computed tomography images of the abdomen and pelvis without intravenous contrast. Combined chest, abdomen, and pelvis CTDI is 20 mGy and DLP is 1352 mGy-cm. One or more of the following dose reduction techniques were used: automated exposure control, adjustment of the mA and/or kV according to patient size, use of iterative reconstruction technique. COMPARISON: No relevant prior studies available. FINDINGS: Lung bases: Unremarkable. No consolidation. No effusions. ABDOMEN: Liver: Unremarkable. Gallbladder and bile ducts: Unremarkable. No calcified stones. No ductal dilation. Pancreas: Unremarkable. No ductal dilation. Spleen: Unremarkable. No splenomegaly. Adrenals: Unremarkable. No mass. Kidneys and ureters: 6 mm nonobstructive stone in the left lower renal pole. Simple-appearing renal cortical cysts, including a 5 cm cyst in the left lower pole and. 3.6 cm cyst in the right mid kidney. Stomach and bowel: Mild sigmoid colonic diverticulosis without evidence of acute inflammation. No obstruction. No mucosal thickening. PELVIS: Appendix: No findings to suggest acute appendicitis. Bladder: Unremarkable. No stones. Reproductive: Unremarkable as visualized. ABDOMEN and PELVIS: Intraperitoneal space: Unremarkable. No free air. No significant fluid collection. Bones/joints: No acute fracture. No dislocation. Soft tissues: Unremarkable. Vasculature: Unremarkable. No abdominal aortic aneurysm. Lymph nodes: Unremarkable. No enlarged lymph nodes. IMPRESSION: 1. 6 mm nonobstructive stone in the left lower renal pole. 2. Simple-appearing renal cortical cysts, including a 5 cm cyst in the left lower pole and. 3.6 cm cyst in the right mid kidney. 3. Mild sigmoid colonic diverticulosis without evidence of acute inflammation.
--- NOTE | 2018-03-13 15:54 | Infectious Diseases Prog Note ---
Assessment/Plan Assessment/Plan ASSESSMENT AND PLAN: 1. + ua, rule out uti, no urinary symptoms, no fevers, no leukocytosis - urine culture with diphtheroids which is likely contaminant - no objective indication for uti or abx tx - continue to monitor clinically - monitor labs - stable ID standpoint 2. Acute kidney injury, elevated creatinine, chronic renal failure. 3. Hypernatremia. 4. Anemia. 5. Hypertension. 6. Blood pressure treatment per primary and consultants. 7. CHF. 8. Edema. 9. Anasarca. 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 11. Past medical history noted. 12. No known drug allergies. 13. Social history negative. 14. Family history noncontributory. 15. MAR was noted. 16. Case discussed with RN. 17. Continue treatment per primary consultants. Subjective Constitutional: Denies: fever HEENT: Denies: congestion Respiratory: Denies: shortness of breath Cardiovascular: Denies: chest pain Gastrointestinal/Abdominal: Denies: nausea, vomiting, diarrhea Genitourinary: Denies: dysuria, hematuria, frequency Neurologic: Denies: headache Psychiatric: Denies: depression Skin: Denies: rash Hematologic: Denies: bleeding Musculoskeletal: Denies: pain Allergies: Coded Allergies: No Known Allergies (Unverified , 03/10/18) Objective Vital Signs Last 24 Hour Vital Signs Date Time Temp Pulse Resp B/P (MAP) Pulse Ox O2 Delivery O2 Flow Rate FiO2 03/13/18 12:00 104 03/13/18 12:00 98.3 69 20 153/80 (104) 98 03/13/18 09:48 67 169/72 03/13/18 09:00 Room Air 03/13/18 08:00 98.5 67 20 169/72 (104) 96 03/13/18 08:00 70 03/13/18 04:00 97.0 69 20 159/61 (93) 95 03/13/18 04:00 65 03/13/18 01:29 176/82 03/13/18 00:00 99.2 77 18 176/82 (113) 100 03/12/18 23:57 79 03/12/18 21:07 69 146/79 03/12/18 21:00 Room Air 03/12/18 20:04 72 03/12/18 20:00 98.5 69 22 146/79 (101) 99 03/12/18 16:00 97.3 77 16 145/79 (101) 93 03/12/18 16:00 80 Height (Feet): 5 Height (Inches): 11.00 Weight (Pounds): 288 General Appearance: no acute distress HEENT: normocephalic, atraumatic, anicteric, mucous membranes moist Respiratory/Chest: lungs clear, normal breath sounds, no respiratory distress, no accessory muscle use Cardiovascular: normal rate, regular rhythm, no gallop/murmur, no JVD Abdomen: normal bowel sounds, soft, non tender, no organomegaly, non distended Genitourinary: other - no jiménez, no cva pain Extremities: no cyanosis Skin: no rash Neurologic/Psychiatric: 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 There is bilateral interstitial edema. The left hemidiaphragm is obscured, pleural effusion possible Impression: Cardiomegaly with interstitial edema Possible left pleural effusion CT abdomen and pelvis: IMPRESSION: 1. 6 mm nonobstructive stone in the left lower renal pole. 2. Simple-appearing renal cortical cysts, including a 5 cm cyst in the left lower pole and. 3.6 cm cyst in the right mid kidney. 3. Mild sigmoid colonic diverticulosis without evidence of acute inflammation. Microbiology Date/Time Source Procedure Growth Status 03/10/18 14:20 Urine,Clean Catch Urine Culture - Final Diphtheroids Complete Labs Test 03/11/18 07:02 03/11/18 19:30 03/12/18 04:55 03/13/18 13:55 Troponin I 0.017 ng/mL (0.000-0.056) C-Reactive Protein, Quantitative 1.1 mg/dL (0.00-0.90) 0.9 mg/dL (0.00-0.90) Pro-B-Type Natriuretic Peptide 488 pg/mL (0-125) 423 pg/mL (0-125) Triglycerides Level 90 MG/DL (30-150) Cholesterol Level 162 MG/DL (< 200) LDL Cholesterol 92 mg/dL (<100) HDL Cholesterol 50 MG/DL (40-60) Cholesterol/HDL Ratio 3.2 (3.3-4.4) Thyroid Stimulating Hormone (TSH) 5.017 uiU/mL (0.358-3.740) 5.762 uiU/mL (0.358-3.740) Free Thyroxine 0.87 NG/DL (0.76-1.46) Urine Collection Time 24 HRS Urine Total Volume 2200 ML Urine Total Protein mg/dL 360 mg/dL Urine Total Protein 24 Hour 7920.0 mg/24hr (< 150) White Blood Count 5.7 K/UL (4.8-10.8) Red Blood Count 3.20 M/UL (4.70-6.10) Hemoglobin 8.3 G/DL (14.2-18.0) Hematocrit 26.5 % (42.0-52.0) Mean Corpuscular Volume 83 FL (80-99) Mean Corpuscular Hemoglobin 26.0 PG (27.0-31.0) Mean Corpuscular Hemoglobin Concent 31.4 G/DL (32.0-36.0) Red Cell Distribution Width 14.0 % (11.6-14.8) Platelet Count 225 K/UL (150-450) Mean Platelet Volume 6.1 FL (6.5-10.1) Neutrophils (%) (Auto) 45.1 % (45.0-75.0) Lymphocytes (%) (Auto) 37.3 % (20.0-45.0) Monocytes (%) (Auto) 9.2 % (1.0-10.0) Eosinophils (%) (Auto) 7.4 % (0.0-3.0) Basophils (%) (Auto) 1.0 % (0.0-2.0) Sodium Level 141 MMOL/L (136-145) Potassium Level 4.0 MMOL/L (3.5-5.1) Chloride Level 109 MMOL/L (98-107) Carbon Dioxide Level 27 MMOL/L (21-32) Anion Gap 5 mmol/L (5-15) Blood Urea Nitrogen 29 mg/dL (7-18) Creatinine 1.6 MG/DL (0.55-1.30) Estimat Glomerular Filtration Rate mL/min (>60) Glucose Level 85 MG/DL (74-106) Hemoglobin A1c 6.2 % (4.3-6.0) Uric Acid 8.9 MG/DL (2.6-7.2) Calcium Level 7.9 MG/DL (8.5-10.1) Phosphorus Level 3.6 MG/DL (2.5-4.9) Magnesium Level 1.8 MG/DL (1.8-2.4) Ferritin 146 NG/ML (8-388) Total Bilirubin 0.2 MG/DL (0.2-1.0) Gamma Glutamyl Transpeptidase 9 U/L (5-85) Aspartate Amino Transf (AST/SGOT) 18 U/L (15-37) Alanine Aminotransferase (ALT/SGPT) 13 U/L (12-78) Alkaline Phosphatase 67 U/L (46-116) Total Protein 4.9 G/DL (6.4-8.2) Albumin 1.3 G/DL (3.4-5.0) Globulin 3.6 g/dL Albumin/Globulin Ratio 0.4 (1.0-2.7) Vitamin B12 Level 337 PG/ML (193-986) Folate 5.2 NG/ML (8.6-58.9) Laboratory Tests Test 03/13/18 13:55 C-Reactive Protein, Quantitative 0.9 mg/dL (0.00-0.90) Carcinoembryonic Antigen Pending Current Medications Medications (Trade) Dose Ordered Sig/Panfilo Route PRN Reason Start Time Stop Time Status Last Admin Dose Admin Acetaminophen (Tylenol) 650 mg Q6H PRN ORAL Mild Pain/Temp > 100.5 03/11/18 09:45 04/10/18 09:44 Barium Sulfate (Readi-Cat 2) 450 ml NOW PRN ORAL Radiology Procedure 03/12/18 15:30 03/14/18 15:21 Carvedilol (Coreg) 6.25 mg EVERY 12 HOURS ORAL 03/10/18 21:00 04/09/18 20:59 03/13/18 09:48 Epoetin Bobby (Procrit (for non ESRD use)) 10,000 units THU-THU-THU SUBQ 03/15/18 21:00 04/14/18 20:59 Folic Acid (Folate) 3 mg DAILY ORAL 03/12/18 14:45 04/11/18 14:44 03/13/18 09:48 Furosemide (Lasix) 40 mg DAILY IV 03/13/18 09:00 04/09/18 20:59 03/13/18 09:47 Heparin Sodium (Porcine) (Heparin 5000 units/ml) 5,000 units EVERY 12 HOURS SUBQ 03/11/18 21:00 04/10/18 20:59 03/13/18 09:48 Hydralazine HCl (Apresoline) 25 mg Q4H PRN ORAL bp over 160 syst 03/13/18 13:15 04/12/18 13:14 Levothyroxine Sodium (Synthroid) 25 mcg DAILY@0630 ORAL 03/13/18 06:30 04/12/18 06:29 03/13/18 06:11 Ondansetron HCl (Zofran) 4 mg Q6H PRN IVP Nausea & Vomiting 03/11/18 09:45 04/10/18 09:44 Pantoprazole (Protonix) 40 mg DAILY ORAL 03/11/18 14:30 04/10/18 14:29 03/13/18 09:48 Tamsulosin HCl (Flomax) 0.4 mg BEDTIME ORAL 03/11/18 21:00 04/10/18 20:59 03/12/18 21:07 Fiorella Mclaughlin MD Mar 13, 2018 15:54
[2018-03-13 16:00] VITALS: BP 143/69
--- NOTE | 2018-03-13 16:32 | Pulmonology Progress Note ---
Assessment/Plan Problems: (1) Glomerulonephritis (2) Anasarca (3) Proteinuria (4) CHARLIE (acute kidney injury) (5) Anemia (6) Thyroid nodule Assessment/Plan -Monitor volumes and renal function, cautious diuresis -Labs pending -F/U cards and renal recs -F/U studies (SPEP, UPEP, urine studies, renal US), may need renal Bx -F/U heme recs -Thyroid US to evaluate thyroid nodule -ENDO recs: continue synthroid, repeat TSH as OP -Observe off Abx per ID, diphteroids in urine likely contaminant -Cardiac diet -Transfer pending to [place] DVT Prophylaxis: HEP SQ Code status: full Hospital Classification declaration: Based on this initial evaluation, and depending on the patient's clinical course, I anticipate that this patient will require hospitalization for 2-3 days. Disposition: Once the patient is stable to leave the hospital, I anticipate the patient will likely be discharged to the following environment Subjective Allergies: Coded Allergies: No Known Allergies (Unverified , 03/10/18) Subjective AFVSS on RA Diptheroids on RA Thyroid nodule noted on CT Started on Synthroid by endo Less SOB no cough no wheezing no SOB no F/C Pending transfer to [place] Objective Last 24 Hour Vital Signs Date Time Temp Pulse Resp B/P (MAP) Pulse Ox O2 Delivery O2 Flow Rate FiO2 03/13/18 16:00 98.8 72 20 143/69 (93) 96 03/13/18 12:00 104 03/13/18 12:00 98.3 69 20 153/80 (104) 98 03/13/18 09:48 67 169/72 03/13/18 09:00 Room Air 03/13/18 08:00 98.5 67 20 169/72 (104) 96 03/13/18 08:00 70 03/13/18 04:00 97.0 69 20 159/61 (93) 95 03/13/18 04:00 65 03/13/18 01:29 176/82 03/13/18 00:00 99.2 77 18 176/82 (113) 100 03/12/18 23:57 79 03/12/18 21:07 69 146/79 03/12/18 21:00 Room Air 03/12/18 20:04 72 03/12/18 20:00 98.5 69 22 146/79 (101) 99 Intake and Output 03/12/18 03/13/18 19:00 07:00 Intake Total 480 ml 200 ml Output Total 400 ml 700 ml Balance 80 ml -500 ml Intake Oral 480 ml 200 ml Output Urine Total 400 ml 700 ml # Voids 2 3 General Appearance: WD/WN, no acute distress HEENT: normocephalic, atraumatic, anicteric, mucous membranes moist Respiratory/Chest: chest wall non-tender, lungs clear, normal breath sounds, no respiratory distress, no accessory muscle use Cardiovascular: normal peripheral pulses, normal rate, regular rhythm Abdomen: normal bowel sounds, soft, non tender, no organomegaly, non distended , no mass Extremities: no cyanosis, no clubbing, other - 1+ edema Laboratory Tests 03/13/18 13:55: C-Reactive Protein, Quantitative 0.9, Carcinoembryonic Antigen [Pending] Current Medications Medications (Trade) Dose Ordered Sig/Panfilo Route PRN Reason Start Time Stop Time Status Last Admin Dose Admin Acetaminophen (Tylenol) 650 mg Q6H PRN ORAL Mild Pain/Temp > 100.5 03/11/18 09:45 04/10/18 09:44 Barium Sulfate (Readi-Cat 2) 450 ml NOW PRN ORAL Radiology Procedure 03/12/18 15:30 03/14/18 15:21 Carvedilol (Coreg) 6.25 mg EVERY 12 HOURS ORAL 03/10/18 21:00 04/09/18 20:59 03/13/18 09:48 Epoetin Bobby (Procrit (for non ESRD use)) 10,000 units THU-THU-THU SUBQ 03/15/18 21:00 04/14/18 20:59 Folic Acid (Folate) 3 mg DAILY ORAL 03/12/18 14:45 04/11/18 14:44 03/13/18 09:48 Furosemide (Lasix) 40 mg DAILY IV 03/13/18 09:00 04/09/18 20:59 03/13/18 09:47 Heparin Sodium (Porcine) (Heparin 5000 units/ml) 5,000 units EVERY 12 HOURS SUBQ 03/11/18 21:00 04/10/18 20:59 03/13/18 09:48 Hydralazine HCl (Apresoline) 25 mg Q4H PRN ORAL bp over 160 syst 03/13/18 13:15 04/12/18 13:14 Levothyroxine Sodium (Synthroid) 25 mcg DAILY@0630 ORAL 03/13/18 06:30 04/12/18 06:29 03/13/18 06:11 Ondansetron HCl (Zofran) 4 mg Q6H PRN IVP Nausea & Vomiting 03/11/18 09:45 04/10/18 09:44 Pantoprazole (Protonix) 40 mg DAILY ORAL 03/11/18 14:30 04/10/18 14:29 03/13/18 09:48 Tamsulosin HCl (Flomax) 0.4 mg BEDTIME ORAL 03/11/18 21:00 04/10/18 20:59 03/12/18 21:07 Rambo Conklin MD Mar 13, 2018 16:32
[2018-03-13 18:11] LABS: BASOPHILS % (AUTO) 1.3 % (0.0-2.0); EOSINOPHILS % (AUTO) 6.6 % (0.0-3.0); HEMATOCRIT 31.3 % (42.0-52.0); HEMOGLOBIN 9.8 G/DL (14.2-18.0); LYMPHOCYTES % (AUTO) 30.8 % (20.0-45.0); MEAN CORPUSCULAR VOLUME 84 FL (80-99); MONOCYTES % (AUTO) 7.6 % (1.0-10.0); NEUTROPHILS % (AUTO) 53.8 % (45.0-75.0); PLATELET COUNT 213 K/UL (150-450); RED BLOOD COUNT 3.71 M/UL (4.70-6.10); RED CELL DISTRIBUTION WIDTH 13.9 % (11.6-14.8); WHITE BLOOD COUNT 6.6 K/UL (4.8-10.8)
[2018-03-13 18:27] LABS: ALANINE AMINOTRANSFERASE 15 U/L (12-78); ALBUMIN 1.5 G/DL (3.4-5.0); ALBUMIN/GLOBULIN RATIO 0.5 (1.0-2.7); ALKALINE PHOSPHATASE 73 U/L (46-116); ANION GAP 6 mmol/L (5-15); ASPARTATE AMINO TRANSFERASE 18 U/L (15-37); BILIRUBIN,TOTAL 0.2 MG/DL (0.2-1.0); BLOOD UREA NITROGEN 27 mg/dL (7-18); CARBON DIOXIDE 28 MMOL/L (21-32); CHLORIDE 108 MMOL/L (98-107); CREATININE 1.7 MG/DL (0.55-1.30); POTASSIUM 4.1 MMOL/L (3.5-5.1); SODIUM 142 MMOL/L (136-145)
--- NOTE | 2018-03-13 19:04 | NUR ---
HAND-OFF: Report given to FRANKY Calloway. Patient is in stable condition. No acute distress/SOB noted. Endorsed plan of care.
--- NOTE | 2018-03-13 19:15 | NUR ---
NURSE NOTES: Received report from FRANKY Marie. Patient awake, alert and verbally responsive. No SOB, no acute distress,denies any pain nor any discomfort at this time. IV site on L AC #20, patent and intact. Bed at lowest position, call light within reach. Will continue plan of care.
[2018-03-13 20:00] VITALS: BP 156/72
[2018-03-13] MEDS: Tamsulosin 0.4mg cap ORAL SCH (20:29)
[2018-03-14] VITALS: BP 165/79
--- NOTE | 2018-03-14 03:31 | NUR ---
NURSE NOTES: Patient asleep, breathing even and unlabored, no s/sx of pain nor any discomfort at this time. Bed at lowest position, call light within reach. Will continue to monitor.
[2018-03-14 04:00] VITALS: BP 163/83
[2018-03-14] MEDS: Levothyroxine 25mcg tab ORAL SCH (06:03)
--- NOTE | 2018-03-14 07:04 | NUR ---
HAND-OFF: Report given to FRANKY Marie. Endorsed plan of care.
--- NOTE | 2018-03-14 07:05 | NUR ---
NURSE NOTES: Received report from FRANKY Calloway. Patient is in stable condition. No acute distress/SOB noted. Patient denies any pain/discomfort. Will continue plan of care.
[2018-03-14 08:00] VITALS: BP 161/78
[2018-03-14 08:22] LABS: HEMATOCRIT 28.9 % (42.0-52.0); LYMPHOCYTES % (AUTO) 32.7 % (20.0-45.0); MEAN CORPUSCULAR VOLUME 83 FL (80-99); MONOCYTES % (AUTO) 8.1 % (1.0-10.0); NEUTROPHILS % (AUTO) 52.2 % (45.0-75.0); PLATELET COUNT 222 K/UL (150-450); RED BLOOD COUNT 3.48 M/UL (4.70-6.10); WHITE BLOOD COUNT 5.3 K/UL (4.8-10.8)
[2018-03-14] MEDS: Heparin 5000 units/ml inj SUBQ SCH ×2 (08:50→21:00)
[2018-03-14] MEDS: Carvedilol 6.25mg Tab ORAL SCH (08:50)
[2018-03-14 09:05] LABS: % IRON SATURATION 15 % (15-50); IRON 19 ug/dL (50-175); TOTAL IRON BINDING CAPACITY 130 ug/dL (250-450)
[2018-03-14 09:21] LABS: ALANINE AMINOTRANSFERASE 12 U/L (12-78); ALBUMIN 1.3 G/DL (3.4-5.0); ALBUMIN/GLOBULIN RATIO 0.3 (1.0-2.7); ALKALINE PHOSPHATASE 64 U/L (46-116); ANION GAP 4 mmol/L (5-15); ASPARTATE AMINO TRANSFERASE 14 U/L (15-37); BILIRUBIN,TOTAL 0.2 MG/DL (0.2-1.0); BLOOD UREA NITROGEN 29 mg/dL (7-18); CALCIUM 7.8 MG/DL (8.5-10.1); CARBON DIOXIDE 29 MMOL/L (21-32); CHLORIDE 107 MMOL/L (98-107); CREATININE 1.6 MG/DL (0.55-1.30); PHOSPHORUS 3.4 MG/DL (2.5-4.9); SODIUM 140 MMOL/L (136-145)
[2018-03-14 12:00] VITALS: BP 153/74
[2018-03-14] MEDS ORDERED: Iron Sucrose 200 MG in NS 110 ML IV SCH (12:00)
--- NOTE | 2018-03-14 12:06 | General Progress Note ---
Assessment/Plan Problem List: (1) Hypothyroidism ICD Codes: E03.9 - Hypothyroidism, unspecified SNOMED: 15938796 (2) Anasarca ICD Codes: R60.1 - Generalized edema SNOMED: 277926274, 753259305 (3) Proteinuria ICD Codes: R80.9 - Proteinuria, unspecified SNOMED: 58636563, [id number] (4) Congestive heart failure (CHF) ICD Codes: I50.9 - Heart failure, unspecified SNOMED: 81139157, [id number] Assessment/Plan continue Levothyroxine 25 mcg daily repeat TSH, free T4 in 4 weeks I sign off Subjective Allergies: Coded Allergies: No Known Allergies (Unverified , 03/10/18) All Systems: reviewed and negative except above Subjective events noted Objective Last 24 Hour Vital Signs Date Time Temp Pulse Resp B/P (MAP) Pulse Ox O2 Delivery O2 Flow Rate FiO2 03/14/18 09:14 Room Air 03/14/18 08:50 74 161/78 03/14/18 08:00 98.0 74 15 161/78 (105) 98 03/14/18 07:51 87 03/14/18 04:00 98.5 79 20 163/83 (109) 95 03/14/18 04:00 79 03/14/18 00:00 98.6 74 20 165/79 (107) 96 03/14/18 00:00 63 03/13/18 21:00 Room Air 03/13/18 20:30 65 156/72 03/13/18 20:00 98.1 65 20 156/72 (100) 94 03/13/18 20:00 65 03/13/18 16:00 98.8 72 20 143/69 (93) 96 03/13/18 16:00 71 Intake and Output 03/13/18 03/14/18 19:00 07:00 Intake Total 720 ml 120 ml Output Total 1400 ml 550 ml Balance -680 ml -430 ml Intake Oral 720 ml 120 ml Output Urine Total 1400 ml 550 ml Laboratory Tests 03/13/18 13:55: C-Reactive Protein, Quantitative 0.9, Carcinoembryonic Antigen [Pending] 03/13/18 17:50: Sodium Level 142, Potassium Level 4.1, Chloride Level 108H, Carbon Dioxide Level 28, Anion Gap 6, Blood Urea Nitrogen 27H, Creatinine 1.7H, Estimat Glomerular Filtration Rate , Glucose Level 114H, Calcium Level 8.0L, Total Bilirubin 0.2, Aspartate Amino Transf (AST/SGOT) 18, Alanine Aminotransferase ( ALT/SGPT) 15, Alkaline Phosphatase 73, Total Protein 4.8L, Albumin 1.5L, Globulin 3.3, Albumin/Globulin Ratio 0.5L 03/13/18 17:55: White Blood Count 6.6, Red Blood Count 3.71L, Hemoglobin 9.8L, Hematocrit 31.3L , Mean Corpuscular Volume 84, Mean Corpuscular Hemoglobin 26.3L, Mean Corpuscular Hemoglobin Concent 31.3L, Red Cell Distribution Width 13.9, Platelet Count 213, Mean Platelet Volume 5.7L, Neutrophils (%) (Auto) 53.8, Lymphocytes (%) (Auto) 30.8, Monocytes (%) (Auto) 7.6, Eosinophils (%) (Auto) 6.6H, Basophils (%) (Auto) 1.3 03/14/18 06:52: C-Reactive Protein, Quantitative 1.6H, Sodium Level 140, Potassium Level 4.0, Chloride Level 107, Carbon Dioxide Level 29, Anion Gap 4L, Blood Urea Nitrogen 29H, Creatinine 1.6H, Estimat Glomerular Filtration Rate , Glucose Level 82, Calcium Level 7.8L, Total Bilirubin 0.2, Aspartate Amino Transf (AST/SGOT) 14L, Alanine Aminotransferase (ALT/SGPT) 12, Alkaline Phosphatase 64, Total Protein 5.1L, Albumin 1.3L, Globulin 3.8, Albumin/Globulin Ratio 0.3L, White Blood Count 5.3, Red Blood Count 3.48L, Hemoglobin 9.0L, Hematocrit 28.9L, Mean Corpuscular Volume 83, Mean Corpuscular Hemoglobin 26.0L, Mean Corpuscular Hemoglobin Concent 31.3L, Red Cell Distribution Width 14.0, Platelet Count 222, Mean Platelet Volume 6.1L, Neutrophils (%) (Auto) 52.2, Lymphocytes (%) (Auto) 32.7, Monocytes (%) (Auto) 8.1, Eosinophils (%) (Auto) 6.0H, Basophils (%) (Auto ) 1.0, Uric Acid 8.9H, Phosphorus Level 3.4, Magnesium Level 1.6L, Iron Level 19L, Total Iron Binding Capacity 130L, Percent Iron Saturation 15, Unsaturated Iron Binding 111L, Pro-B-Type Natriuretic Peptide 374H Height (Feet): 5 Height (Inches): 11.00 Weight (Pounds): 288 General Appearance: no apparent distress Neck: normal alignment Cardiovascular: normal rate Respiratory/Chest: decreased breath sounds Abdomen: normal bowel sounds Edema: 2+ Arm (L), 2+ Arm (R), 2+ Leg (L), 2+ Leg (R), 2+ Pedal (L), 2+ Pedal ( R), 2+ Generalized Objective Current Medications Medications (Trade) Dose Ordered Sig/Panfilo Route PRN Reason Start Time Stop Time Status Last Admin Dose Admin Acetaminophen (Tylenol) 650 mg Q6H PRN ORAL Mild Pain/Temp > 100.5 03/11/18 09:45 04/10/18 09:44 Barium Sulfate (Readi-Cat 2) 450 ml NOW PRN ORAL Radiology Procedure 03/12/18 15:30 03/14/18 15:21 Carvedilol (Coreg) 6.25 mg EVERY 12 HOURS ORAL 03/10/18 21:00 04/09/18 20:59 03/14/18 08:50 Epoetin Bobby (Procrit (for non ESRD use)) 10,000 units THU-THU-THU SUBQ 03/15/18 21:00 04/14/18 20:59 Folic Acid (Folate) 3 mg DAILY ORAL 03/12/18 14:45 04/11/18 14:44 03/14/18 08:50 Furosemide (Lasix) 40 mg DAILY IV 03/13/18 09:00 04/09/18 20:59 03/14/18 08:49 Heparin Sodium (Porcine) (Heparin 5000 units/ml) 5,000 units EVERY 12 HOURS SUBQ 03/11/18 21:00 04/10/18 20:59 03/14/18 08:50 Hydralazine HCl (Apresoline) 25 mg Q4H PRN ORAL bp over 160 syst 03/13/18 13:15 04/12/18 13:14 Iron Sucrose 200 mg/Sodium Chloride 120 ml @ 240 mls/hr ONCE IV 03/14/18 12:00 03/14/18 13:00 Levothyroxine Sodium (Synthroid) 25 mcg DAILY@0630 ORAL 03/13/18 06:30 04/12/18 06:29 03/14/18 06:03 Ondansetron HCl (Zofran) 4 mg Q6H PRN IVP Nausea & Vomiting 03/11/18 09:45 04/10/18 09:44 Pantoprazole (Protonix) 40 mg DAILY ORAL 03/11/18 14:30 04/10/18 14:29 03/14/18 08:50 Tamsulosin HCl (Flomax) 0.4 mg BEDTIME ORAL 03/11/18 21:00 04/10/18 20:59 03/13/18 20:29 Sascha Hernandez MD Mar 14, 2018 12:06
--- NOTE | 2018-03-14 12:52 | Pulmonology Progress Note ---
Assessment/Plan Problems: (1) Glomerulonephritis (2) Anasarca (3) Proteinuria (4) CHARLIE (acute kidney injury) (5) Anemia (6) Thyroid nodule (7) Iron deficiency anemia Assessment/Plan -Monitor volumes and renal function, cautious diuresis -F/U cards and renal recs -F/U studies (SPEP, UPEP, urine studies, renal US), may need renal Bx -F/U heme recs, continue IV Iron, GI eval pending -F/U Thyroid US to evaluate thyroid nodule -ENDO recs: continue synthroid, repeat TSH as OP -Observe off Abx per ID, diphteroids in urine likely contaminant -Cardiac diet -Transfer pending to [place] and transition to OP Abx can likely be D/C'd home DVT Prophylaxis: HEP SQ Code status: full Hospital Classification declaration: Based on this initial evaluation, and depending on the patient's clinical course, I anticipate that this patient will require hospitalization for 1-2days. Disposition: Once the patient is stable to leave the hospital, I anticipate the patient will likely be discharged home or transferred to the [place] Subjective Allergies: Coded Allergies: No Known Allergies (Unverified , 03/10/18) Subjective AFVSS on RA -1L, renal function better with diuresis No change in SOB no cough no wheezing no SOB no F/C Pending transfer to [place] Renal function better with diuresis Started on IV Iron for MOJGAN Objective Last 24 Hour Vital Signs Date Time Temp Pulse Resp B/P (MAP) Pulse Ox O2 Delivery O2 Flow Rate FiO2 03/14/18 12:00 98.8 66 18 153/74 (100) 98 03/14/18 09:14 Room Air 03/14/18 08:50 74 161/78 03/14/18 08:00 98.0 74 15 161/78 (105) 98 03/14/18 07:51 87 03/14/18 04:00 98.5 79 20 163/83 (109) 95 03/14/18 04:00 79 03/14/18 00:00 98.6 74 20 165/79 (107) 96 03/14/18 00:00 63 03/13/18 21:00 Room Air 03/13/18 20:30 65 156/72 03/13/18 20:00 98.1 65 20 156/72 (100) 94 03/13/18 20:00 65 03/13/18 16:00 98.8 72 20 143/69 (93) 96 03/13/18 16:00 71 Intake and Output 03/13/18 03/14/18 19:00 07:00 Intake Total 720 ml 120 ml Output Total 1400 ml 550 ml Balance -680 ml -430 ml Intake Oral 720 ml 120 ml Output Urine Total 1400 ml 550 ml General Appearance: WD/WN, no acute distress HEENT: normocephalic, atraumatic, anicteric, mucous membranes moist Respiratory/Chest: chest wall non-tender, lungs clear, normal breath sounds, no respiratory distress, no accessory muscle use Cardiovascular: normal peripheral pulses, normal rate, regular rhythm Abdomen: normal bowel sounds, soft, non tender, no organomegaly, non distended , no mass Extremities: no cyanosis, no clubbing, other - 1+ BAKARI Laboratory Tests 03/13/18 13:55: C-Reactive Protein, Quantitative 0.9, Carcinoembryonic Antigen [Pending] 03/13/18 17:50: Sodium Level 142, Potassium Level 4.1, Chloride Level 108H, Carbon Dioxide Level 28, Anion Gap 6, Blood Urea Nitrogen 27H, Creatinine 1.7H, Estimat Glomerular Filtration Rate , Glucose Level 114H, Calcium Level 8.0L, Total Bilirubin 0.2, Aspartate Amino Transf (AST/SGOT) 18, Alanine Aminotransferase ( ALT/SGPT) 15, Alkaline Phosphatase 73, Total Protein 4.8L, Albumin 1.5L, Globulin 3.3, Albumin/Globulin Ratio 0.5L 03/13/18 17:55: White Blood Count 6.6, Red Blood Count 3.71L, Hemoglobin 9.8L, Hematocrit 31.3L , Mean Corpuscular Volume 84, Mean Corpuscular Hemoglobin 26.3L, Mean Corpuscular Hemoglobin Concent 31.3L, Red Cell Distribution Width 13.9, Platelet Count 213, Mean Platelet Volume 5.7L, Neutrophils (%) (Auto) 53.8, Lymphocytes (%) (Auto) 30.8, Monocytes (%) (Auto) 7.6, Eosinophils (%) (Auto) 6.6H, Basophils (%) (Auto) 1.3 03/14/18 06:52: C-Reactive Protein, Quantitative 1.6H, Sodium Level 140, Potassium Level 4.0, Chloride Level 107, Carbon Dioxide Level 29, Anion Gap 4L, Blood Urea Nitrogen 29H, Creatinine 1.6H, Estimat Glomerular Filtration Rate , Glucose Level 82, Calcium Level 7.8L, Total Bilirubin 0.2, Aspartate Amino Transf (AST/SGOT) 14L, Alanine Aminotransferase (ALT/SGPT) 12, Alkaline Phosphatase 64, Total Protein 5.1L, Albumin 1.3L, Globulin 3.8, Albumin/Globulin Ratio 0.3L, White Blood Count 5.3, Red Blood Count 3.48L, Hemoglobin 9.0L, Hematocrit 28.9L, Mean Corpuscular Volume 83, Mean Corpuscular Hemoglobin 26.0L, Mean Corpuscular Hemoglobin Concent 31.3L, Red Cell Distribution Width 14.0, Platelet Count 222, Mean Platelet Volume 6.1L, Neutrophils (%) (Auto) 52.2, Lymphocytes (%) (Auto) 32.7, Monocytes (%) (Auto) 8.1, Eosinophils (%) (Auto) 6.0H, Basophils (%) (Auto ) 1.0, Uric Acid 8.9H, Phosphorus Level 3.4, Magnesium Level 1.6L, Iron Level 19L, Total Iron Binding Capacity 130L, Percent Iron Saturation 15, Unsaturated Iron Binding 111L, Pro-B-Type Natriuretic Peptide 374H Current Medications Medications (Trade) Dose Ordered Sig/Panfilo Route PRN Reason Start Time Stop Time Status Last Admin Dose Admin Acetaminophen (Tylenol) 650 mg Q6H PRN ORAL Mild Pain/Temp > 100.5 03/11/18 09:45 04/10/18 09:44 Barium Sulfate (Readi-Cat 2) 450 ml NOW PRN ORAL Radiology Procedure 03/12/18 15:30 03/14/18 15:21 Carvedilol (Coreg) 6.25 mg EVERY 12 HOURS ORAL 03/10/18 21:00 04/09/18 20:59 03/14/18 08:50 Epoetin Bobby (Procrit (for non ESRD use)) 10,000 units MON-WED-THU SUBQ 03/15/18 21:00 04/14/18 20:59 Folic Acid (Folate) 3 mg DAILY ORAL 03/12/18 14:45 04/11/18 14:44 03/14/18 08:50 Furosemide (Lasix) 40 mg DAILY IV 03/13/18 09:00 04/09/18 20:59 03/14/18 08:49 Heparin Sodium (Porcine) (Heparin 5000 units/ml) 5,000 units EVERY 12 HOURS SUBQ 03/11/18 21:00 04/10/18 20:59 03/14/18 08:50 Hydralazine HCl (Apresoline) 25 mg Q4H PRN ORAL bp over 160 syst 03/13/18 13:15 04/12/18 13:14 Iron Sucrose 200 mg/Sodium Chloride 120 ml @ 240 mls/hr ONCE IV 03/14/18 12:00 03/14/18 13:00 03/14/18 12:05 Levothyroxine Sodium (Synthroid) 25 mcg DAILY@0630 ORAL 03/13/18 06:30 04/12/18 06:29 03/14/18 06:03 Ondansetron HCl (Zofran) 4 mg Q6H PRN IVP Nausea & Vomiting 03/11/18 09:45 04/10/18 09:44 Pantoprazole (Protonix) 40 mg DAILY ORAL 03/11/18 14:30 04/10/18 14:29 03/14/18 08:50 Tamsulosin HCl (Flomax) 0.4 mg BEDTIME ORAL 03/11/18 21:00 04/10/18 20:59 03/13/18 20:29 Rambo Conklin MD Mar 14, 2018 12:52
--- NOTE | 2018-03-14 13:15 | Cardiac Electrophysiology PN ---
Assessment/Plan Assessment/Plan 1. Severe bilateral lower extremity edema. Echocardiogram EF 60%. Also has renal failure. On Lasix 40 mg IV daily 2. Hypertension. Continue Lasix and Coreg 6.25 mg b.i.d. Avoid BOBBY inhibitor and angiotensin-receptor blockers in view of his renal failure at this point. 3. Morbid obesity. Transfer pending to [place] Going to [facility] Subjective Subjective Diuresing well. No CP or SOB. RN at bedside. Objective Last 24 Hour Vital Signs Date Time Temp Pulse Resp B/P (MAP) Pulse Ox O2 Delivery O2 Flow Rate FiO2 03/14/18 12:00 69 03/14/18 12:00 98.8 66 18 153/74 (100) 98 03/14/18 09:14 Room Air 03/14/18 08:50 74 161/78 03/14/18 08:00 98.0 74 15 161/78 (105) 98 03/14/18 07:51 87 03/14/18 04:00 98.5 79 20 163/83 (109) 95 03/14/18 04:00 79 03/14/18 00:00 98.6 74 20 165/79 (107) 96 03/14/18 00:00 63 03/13/18 21:00 Room Air 03/13/18 20:30 65 156/72 03/13/18 20:00 98.1 65 20 156/72 (100) 94 03/13/18 20:00 65 03/13/18 16:00 98.8 72 20 143/69 (93) 96 03/13/18 16:00 71 Intake and Output 03/13/18 03/14/18 19:00 07:00 Intake Total 720 ml 120 ml Output Total 1400 ml 550 ml Balance -680 ml -430 ml Intake Oral 720 ml 120 ml Output Urine Total 1400 ml 550 ml Laboratory Tests Test 03/13/18 13:55 03/13/18 17:50 03/13/18 17:55 03/14/18 06:52 C-Reactive Protein, Quantitative 0.9 mg/dL (0.00-0.90) 1.6 mg/dL (0.00-0.90) H Carcinoembryonic Antigen Pending Sodium Level 142 MMOL/L (136-145) 140 MMOL/L (136-145) Potassium Level 4.1 MMOL/L (3.5-5.1) 4.0 MMOL/L (3.5-5.1) Chloride Level 108 MMOL/L (98-107) H 107 MMOL/L (98-107) Carbon Dioxide Level 28 MMOL/L (21-32) 29 MMOL/L (21-32) Anion Gap 6 mmol/L (5-15) 4 mmol/L (5-15) L Blood Urea Nitrogen 27 mg/dL (7-18) H 29 mg/dL (7-18) H Creatinine 1.7 MG/DL (0.55-1.30) H 1.6 MG/DL (0.55-1.30) H Estimat Glomerular Filtration Rate mL/min (>60) mL/min (>60) Glucose Level 114 MG/DL (74-106) H 82 MG/DL (74-106) Calcium Level 8.0 MG/DL (8.5-10.1) L 7.8 MG/DL (8.5-10.1) L Total Bilirubin 0.2 MG/DL (0.2-1.0) 0.2 MG/DL (0.2-1.0) Aspartate Amino Transf (AST/SGOT) 18 U/L (15-37) 14 U/L (15-37) L Alanine Aminotransferase (ALT/SGPT) 15 U/L (12-78) 12 U/L (12-78) Alkaline Phosphatase 73 U/L (46-116) 64 U/L (46-116) Total Protein 4.8 G/DL (6.4-8.2) L 5.1 G/DL (6.4-8.2) L Albumin 1.5 G/DL (3.4-5.0) L 1.3 G/DL (3.4-5.0) L Globulin 3.3 g/dL 3.8 g/dL Albumin/Globulin Ratio 0.5 (1.0-2.7) L 0.3 (1.0-2.7) L White Blood Count 6.6 K/UL (4.8-10.8) 5.3 K/UL (4.8-10.8) Red Blood Count 3.71 M/UL (4.70-6.10) L 3.48 M/UL (4.70-6.10) L Hemoglobin 9.8 G/DL (14.2-18.0) L 9.0 G/DL (14.2-18.0) L Hematocrit 31.3 % (42.0-52.0) L 28.9 % (42.0-52.0) L Mean Corpuscular Volume 84 FL (80-99) 83 FL (80-99) Mean Corpuscular Hemoglobin 26.3 PG (27.0-31.0) L 26.0 PG (27.0-31.0) L Mean Corpuscular Hemoglobin Concent 31.3 G/DL (32.0-36.0) L 31.3 G/DL (32.0-36.0) L Red Cell Distribution Width 13.9 % (11.6-14.8) 14.0 % (11.6-14.8) Platelet Count 213 K/UL (150-450) 222 K/UL (150-450) Mean Platelet Volume 5.7 FL (6.5-10.1) L 6.1 FL (6.5-10.1) L Neutrophils (%) (Auto) 53.8 % (45.0-75.0) 52.2 % (45.0-75.0) Lymphocytes (%) (Auto) 30.8 % (20.0-45.0) 32.7 % (20.0-45.0) Monocytes (%) (Auto) 7.6 % (1.0-10.0) 8.1 % (1.0-10.0) Eosinophils (%) (Auto) 6.6 % (0.0-3.0) H 6.0 % (0.0-3.0) H Basophils (%) (Auto) 1.3 % (0.0-2.0) 1.0 % (0.0-2.0) Uric Acid 8.9 MG/DL (2.6-7.2) H Phosphorus Level 3.4 MG/DL (2.5-4.9) Magnesium Level 1.6 MG/DL (1.8-2.4) L Iron Level 19 ug/dL (50-175) L Total Iron Binding Capacity 130 ug/dL (250-450) L Percent Iron Saturation 15 % (15-50) Unsaturated Iron Binding 111 ug/dL (112-346) L Pro-B-Type Natriuretic Peptide 374 pg/mL (0-125) H Objective HEAD AND NECK: Mild JVD. LUNGS: Decreased breath sounds. CARDIOVASCULAR: Regular S1 and S2 with no gallop. ABDOMEN: Soft. EXTREMITIES: 2+ pitting edema. Jose Chairez MD Mar 14, 2018 13:15
--- NOTE | 2018-03-14 13:29 | NUR ---
CASE MANAGEMENT:REVIEW 03/13/18 SI: CHARLIE. ANASARCA.? UTI T 98.8 HR 65 RR 20 B/P 143/69 SATS 96% ON RA CL 108 BUN 27 CR 1.7 GLUCOSE 114 CA 8 IS: HEPARIN SUBQ Q12H FLOMAX PO QHS PROTONIX PO QD IV LASIX Q12H COREG PO Q12H : TELEMETRY DCP: VISITING [facility] FROM [place] 03/14/2018 SI: CHARLIE. ANASARCA.? UTI T 98.8 HR 66 RR 18 B/P 153/74 SATS 98% ON RA BUN 29 CR 1.6 CA 7.8 BNP 374 IS: HEPARIN SUBQ Q12H FLOMAX PO QHS PROTONIX PO QD IV LASIX Q12H COREG PO Q12H : TELEMETRY DCP: VISITING [facility] FROM [place] PLAN OF CARE: POSSIBLE DOWNGRADE CONTINUE DIURESIS
--- NOTE | 2018-03-14 14:33 | General Progress Note ---
Assessment/Plan Assessment/Plan Assessment and Recs: # Anemia of iron deficiency, has been started on iron --> spep is still pending to eval if any band restrictions are noted --> anemia panel has been ordered, tsh as well --> endo, cards and renal recs reviewed --> transfuse if hgb is less than 7 --> iron iv has been ordered # Thyroid nodule 2.3 x 2.2 x 1.8 cm hypodense nodule in the thyroid isthmus. --> Recommend further evaluation with thyroid ultrasound (pending) # Anasarca -- potentially proteinuria related --> further recs per neprho --> eval with cards as well if chf # CHARLIE (acute kidney injury) # Proteinuria # Glomerulonephritis # Congestive heart failure (CHF) The time of encounter does not reflect the time of the note Greatly appreciate consultation! Subjective Constitutional: Denies: no symptoms, chills, diaphoresis, fever, malaise, weakness, other HEENT: Denies: no symptoms, eye pain, blurred vision, tearing, double vision, ear pain, ear discharge, nose pain, nose congestion, throat pain, throat swelling, mouth pain, mouth swelling, other Cardiovascular: Denies: no symptoms, chest pain, edema, irregular heart rate, lightheadedness, palpitations, syncope, other Respiratory: Denies: no symptoms, cough, orthopnea, shortness of breath, SOB with excertion, SOB at rest, sputum, stridor, wheezing, other Gastrointestinal/Abdominal: Denies: no symptoms, abdomen distended, abdominal pain, black stools, tarry stools, blood in stool, constipated, diarrhea, difficulty swallowing, nausea, poor appetite, poor fluid intake, rectal bleeding , vomiting, other Genitourinary: Denies: no symptoms, burning, discharge, frequency, flank pain, hematuria, incontinence, pain, urgency, other Neurologic/Psychiatric: Denies: no symptoms, anxiety, depressed, emotional problems, headache, numbness, paresthesia, pre-existing deficit, seizure, tingling, tremors, weakness, other Endocrine: Denies: no symptoms, excessive sweating, flushing, intolerance to cold, intolerance to heat, increased hunger, increased thirst, increased urine, unexplained weight gain, unexplained weight loss, other Hematologic/Lymphatic: Denies: no symptoms, anemia, easy bleeding, easy bruising, other Allergies: Coded Allergies: No Known Allergies (Unverified , 03/10/18) Subjective 03/14: getting lasix and coreg, diuresis, not bleeding Objective Last 24 Hour Vital Signs Date Time Temp Pulse Resp B/P (MAP) Pulse Ox O2 Delivery O2 Flow Rate FiO2 03/14/18 12:00 69 03/14/18 12:00 98.8 66 18 153/74 (100) 98 03/14/18 09:14 Room Air 03/14/18 08:50 74 161/78 03/14/18 08:00 98.0 74 15 161/78 (105) 98 03/14/18 07:51 87 03/14/18 04:00 98.5 79 20 163/83 (109) 95 03/14/18 04:00 79 03/14/18 00:00 98.6 74 20 165/79 (107) 96 03/14/18 00:00 63 03/13/18 21:00 Room Air 03/13/18 20:30 65 156/72 03/13/18 20:00 98.1 65 20 156/72 (100) 94 03/13/18 20:00 65 03/13/18 16:00 98.8 72 20 143/69 (93) 96 03/13/18 16:00 71 Intake and Output 03/13/18 03/14/18 19:00 07:00 Intake Total 720 ml 120 ml Output Total 1400 ml 550 ml Balance -680 ml -430 ml Intake Oral 720 ml 120 ml Output Urine Total 1400 ml 550 ml Laboratory Tests 03/13/18 17:50: Sodium Level 142, Potassium Level 4.1, Chloride Level 108H, Carbon Dioxide Level 28, Anion Gap 6, Blood Urea Nitrogen 27H, Creatinine 1.7H, Estimat Glomerular Filtration Rate , Glucose Level 114H, Calcium Level 8.0L, Total Bilirubin 0.2, Aspartate Amino Transf (AST/SGOT) 18, Alanine Aminotransferase ( ALT/SGPT) 15, Alkaline Phosphatase 73, Total Protein 4.8L, Albumin 1.5L, Globulin 3.3, Albumin/Globulin Ratio 0.5L 03/13/18 17:55: White Blood Count 6.6, Red Blood Count 3.71L, Hemoglobin 9.8L, Hematocrit 31.3L , Mean Corpuscular Volume 84, Mean Corpuscular Hemoglobin 26.3L, Mean Corpuscular Hemoglobin Concent 31.3L, Red Cell Distribution Width 13.9, Platelet Count 213, Mean Platelet Volume 5.7L, Neutrophils (%) (Auto) 53.8, Lymphocytes (%) (Auto) 30.8, Monocytes (%) (Auto) 7.6, Eosinophils (%) (Auto) 6.6H, Basophils (%) (Auto) 1.3 03/14/18 06:52: Sodium Level 140, Potassium Level 4.0, Chloride Level 107, Carbon Dioxide Level 29, Anion Gap 4L, Blood Urea Nitrogen 29H, Creatinine 1.6H, Estimat Glomerular Filtration Rate , Glucose Level 82, Calcium Level 7.8L, Total Bilirubin 0.2, Aspartate Amino Transf (AST/SGOT) 14L, Alanine Aminotransferase (ALT/SGPT) 12, Alkaline Phosphatase 64, Total Protein 5.1L, Albumin 1.3L, Globulin 3.8, Albumin /Globulin Ratio 0.3L, White Blood Count 5.3, Red Blood Count 3.48L, Hemoglobin 9.0L, Hematocrit 28.9L, Mean Corpuscular Volume 83, Mean Corpuscular Hemoglobin 26.0L, Mean Corpuscular Hemoglobin Concent 31.3L, Red Cell Distribution Width 14.0, Platelet Count 222, Mean Platelet Volume 6.1L, Neutrophils (%) (Auto) 52.2 , Lymphocytes (%) (Auto) 32.7, Monocytes (%) (Auto) 8.1, Eosinophils (%) (Auto) 6.0H, Basophils (%) (Auto) 1.0, Uric Acid 8.9H, Phosphorus Level 3.4, Magnesium Level 1.6L, Iron Level 19L, Total Iron Binding Capacity 130L, Percent Iron Saturation 15, Unsaturated Iron Binding 111L, C-Reactive Protein, Quantitative 1.6H, Pro-B-Type Natriuretic Peptide 374H Height (Feet): 5 Height (Inches): 11.00 Weight (Pounds): 288 Objective General Appearance: no apparent distress Head: normocephalic, atraumatic Eyes: bilateral eye normal inspection, bilateral eye PERRL ENT: hearing grossly normal, normal pharynx Neck: full range of motion, supple/symm/no masses Respiratory: chest non-tender, lungs clear, normal breath sounds, no respiratory distress Cardiovascular: regular rate, rhythm, no edema, edema - BLE and BUE edema Gastrointestinal: normal bowel sounds, non tender Neurologic: alert, oriented x3, responsive Psychiatric: judgement/insight normal, mood/affect normal Skin: normal color, ++ anasarca Alexx Medina MD Mar 14, 2018 14:33
--- NOTE | 2018-03-14 15:19 | Nephrology Progress Note ---
Assessment/Plan Problem List: (1) CHARLIE (acute kidney injury) (2) Proteinuria (3) Congestive heart failure (CHF) (4) Anasarca (5) Nephrotic syndrome Assessment Anemia, Proteinuria, HypoAlbuminemia, Renal Failure ? Diabetic ? Amyloidosis HTN ? CHF Plan Iron IV Mag EPO 24 H urine protein close to 8 grams Protein SPEP UPEP HgbA1c : 6.2 BP control, up on Coreg 2D echo noted lasix to po per orders Subjective ROS Limited/Unobtainable: No Constitutional: Reports: malaise Objective Objective Last 24 Hour Vital Signs Date Time Temp Pulse Resp B/P (MAP) Pulse Ox O2 Delivery O2 Flow Rate FiO2 03/14/18 12:00 69 03/14/18 12:00 98.8 66 18 153/74 (100) 98 03/14/18 09:14 Room Air 03/14/18 08:50 74 161/78 03/14/18 08:00 98.0 74 15 161/78 (105) 98 03/14/18 07:51 87 03/14/18 04:00 98.5 79 20 163/83 (109) 95 03/14/18 04:00 79 03/14/18 00:00 98.6 74 20 165/79 (107) 96 03/14/18 00:00 63 03/13/18 21:00 Room Air 03/13/18 20:30 65 156/72 03/13/18 20:00 98.1 65 20 156/72 (100) 94 03/13/18 20:00 65 03/13/18 16:00 98.8 72 20 143/69 (93) 96 03/13/18 16:00 71 Intake and Output 03/13/18 03/14/18 19:00 07:00 Intake Total 720 ml 120 ml Output Total 1400 ml 550 ml Balance -680 ml -430 ml Intake Oral 720 ml 120 ml Output Urine Total 1400 ml 550 ml Laboratory Tests 03/13/18 17:50: Sodium Level 142, Potassium Level 4.1, Chloride Level 108H, Carbon Dioxide Level 28, Anion Gap 6, Blood Urea Nitrogen 27H, Creatinine 1.7H, Estimat Glomerular Filtration Rate , Glucose Level 114H, Calcium Level 8.0L, Total Bilirubin 0.2, Aspartate Amino Transf (AST/SGOT) 18, Alanine Aminotransferase ( ALT/SGPT) 15, Alkaline Phosphatase 73, Total Protein 4.8L, Albumin 1.5L, Globulin 3.3, Albumin/Globulin Ratio 0.5L 03/13/18 17:55: White Blood Count 6.6, Red Blood Count 3.71L, Hemoglobin 9.8L, Hematocrit 31.3L , Mean Corpuscular Volume 84, Mean Corpuscular Hemoglobin 26.3L, Mean Corpuscular Hemoglobin Concent 31.3L, Red Cell Distribution Width 13.9, Platelet Count 213, Mean Platelet Volume 5.7L, Neutrophils (%) (Auto) 53.8, Lymphocytes (%) (Auto) 30.8, Monocytes (%) (Auto) 7.6, Eosinophils (%) (Auto) 6.6H, Basophils (%) (Auto) 1.3 03/14/18 06:52: Sodium Level 140, Potassium Level 4.0, Chloride Level 107, Carbon Dioxide Level 29, Anion Gap 4L, Blood Urea Nitrogen 29H, Creatinine 1.6H, Estimat Glomerular Filtration Rate , Glucose Level 82, Calcium Level 7.8L, Total Bilirubin 0.2, Aspartate Amino Transf (AST/SGOT) 14L, Alanine Aminotransferase (ALT/SGPT) 12, Alkaline Phosphatase 64, Total Protein 5.1L, Albumin 1.3L, Globulin 3.8, Albumin /Globulin Ratio 0.3L, White Blood Count 5.3, Red Blood Count 3.48L, Hemoglobin 9.0L, Hematocrit 28.9L, Mean Corpuscular Volume 83, Mean Corpuscular Hemoglobin 26.0L, Mean Corpuscular Hemoglobin Concent 31.3L, Red Cell Distribution Width 14.0, Platelet Count 222, Mean Platelet Volume 6.1L, Neutrophils (%) (Auto) 52.2 , Lymphocytes (%) (Auto) 32.7, Monocytes (%) (Auto) 8.1, Eosinophils (%) (Auto) 6.0H, Basophils (%) (Auto) 1.0, Uric Acid 8.9H, Phosphorus Level 3.4, Magnesium Level 1.6L, Iron Level 19L, Total Iron Binding Capacity 130L, Percent Iron Saturation 15, Unsaturated Iron Binding 111L, C-Reactive Protein, Quantitative 1.6H, Pro-B-Type Natriuretic Peptide 374H Height (Feet): 5 Height (Inches): 11.00 Weight (Pounds): 288 General Appearance: no apparent distress Cardiovascular: normal rate Respiratory/Chest: decreased breath sounds Abdomen: absent bowel sounds Objective no change Arcadio Guevara MD Mar 14, 2018 15:19
[2018-03-14 16:00] VITALS: BP 143/88
[2018-03-14] MEDS ORDERED: Tubing IV Secondary IV ONE (16:26)
--- NOTE | 2018-03-14 16:54 | General Progress Note ---
Assessment/Plan Assessment/Plan GI CONSULT Dictated Patient advised he will need to undergo EGD/Colon as outpatient at [facility] Agree with Fe infusion Thank you Leticia Calderon MD Subjective Allergies: Coded Allergies: No Known Allergies (Unverified , 03/10/18) Objective Last 24 Hour Vital Signs Date Time Temp Pulse Resp B/P (MAP) Pulse Ox O2 Delivery O2 Flow Rate FiO2 03/14/18 16:00 97.9 65 20 143/88 (106) 98 03/14/18 12:00 69 03/14/18 12:00 98.8 66 18 153/74 (100) 98 03/14/18 09:14 Room Air 03/14/18 08:50 74 161/78 03/14/18 08:00 98.0 74 15 161/78 (105) 98 03/14/18 07:51 87 03/14/18 04:00 98.5 79 20 163/83 (109) 95 03/14/18 04:00 79 03/14/18 00:00 98.6 74 20 165/79 (107) 96 03/14/18 00:00 63 03/13/18 21:00 Room Air 03/13/18 20:30 65 156/72 03/13/18 20:00 98.1 65 20 156/72 (100) 94 03/13/18 20:00 65 Intake and Output 03/13/18 03/14/18 19:00 07:00 Intake Total 720 ml 120 ml Output Total 1400 ml 550 ml Balance -680 ml -430 ml Intake Oral 720 ml 120 ml Output Urine Total 1400 ml 550 ml Laboratory Tests 03/13/18 17:50: Sodium Level 142, Potassium Level 4.1, Chloride Level 108H, Carbon Dioxide Level 28, Anion Gap 6, Blood Urea Nitrogen 27H, Creatinine 1.7H, Estimat Glomerular Filtration Rate , Glucose Level 114H, Calcium Level 8.0L, Total Bilirubin 0.2, Aspartate Amino Transf (AST/SGOT) 18, Alanine Aminotransferase ( ALT/SGPT) 15, Alkaline Phosphatase 73, Total Protein 4.8L, Albumin 1.5L, Globulin 3.3, Albumin/Globulin Ratio 0.5L 03/13/18 17:55: White Blood Count 6.6, Red Blood Count 3.71L, Hemoglobin 9.8L, Hematocrit 31.3L , Mean Corpuscular Volume 84, Mean Corpuscular Hemoglobin 26.3L, Mean Corpuscular Hemoglobin Concent 31.3L, Red Cell Distribution Width 13.9, Platelet Count 213, Mean Platelet Volume 5.7L, Neutrophils (%) (Auto) 53.8, Lymphocytes (%) (Auto) 30.8, Monocytes (%) (Auto) 7.6, Eosinophils (%) (Auto) 6.6H, Basophils (%) (Auto) 1.3 03/14/18 06:52: Sodium Level 140, Potassium Level 4.0, Chloride Level 107, Carbon Dioxide Level 29, Anion Gap 4L, Blood Urea Nitrogen 29H, Creatinine 1.6H, Estimat Glomerular Filtration Rate , Glucose Level 82, Calcium Level 7.8L, Total Bilirubin 0.2, Aspartate Amino Transf (AST/SGOT) 14L, Alanine Aminotransferase (ALT/SGPT) 12, Alkaline Phosphatase 64, Total Protein 5.1L, Albumin 1.3L, Globulin 3.8, Albumin /Globulin Ratio 0.3L, White Blood Count 5.3, Red Blood Count 3.48L, Hemoglobin 9.0L, Hematocrit 28.9L, Mean Corpuscular Volume 83, Mean Corpuscular Hemoglobin 26.0L, Mean Corpuscular Hemoglobin Concent 31.3L, Red Cell Distribution Width 14.0, Platelet Count 222, Mean Platelet Volume 6.1L, Neutrophils (%) (Auto) 52.2 , Lymphocytes (%) (Auto) 32.7, Monocytes (%) (Auto) 8.1, Eosinophils (%) (Auto) 6.0H, Basophils (%) (Auto) 1.0, Uric Acid 8.9H, Phosphorus Level 3.4, Magnesium Level 1.6L, Iron Level 19L, Total Iron Binding Capacity 130L, Percent Iron Saturation 15, Unsaturated Iron Binding 111L, C-Reactive Protein, Quantitative 1.6H, Pro-B-Type Natriuretic Peptide 374H Height (Feet): 5 Height (Inches): 11.00 Weight (Pounds): 288 Antoinette Calderon MD Mar 14, 2018 16:54
--- NOTE | 2018-03-14 19:45 | NUR ---
NURSE NOTES: Patient is in stable condition. No acute distress/SOB noted. Will continue plan of care.
[2018-03-14 20:00] VITALS: BP 160/69
--- NOTE | 2018-03-14 20:30 | Consultation ---
DATE OF CONSULTATION: 03/14/2018 GASTROENTEROLOGY CONSULTATION: CONSULTING PHYSICIAN: Antoinette Calderon M.D. REFERRING PHYSICIAN: Rambo Conklin M.D. CHIEF COMPLAINT: I was asked to see this patient by Dr. Rmabo Conklin for evaluation of iron deficiency anemia. HISTORY OF PRESENT ILLNESS: The patient is a pleasant 82-year-old [place] who is here at this hospital due to anasarca and renal failure. The patient was apparently at the [facility] in [place] last month and has noted several weeks of anemia and shortness of breath and came to this hospital where he has been admitted on emergency basis and treated. He denies any abdominal pain, nausea, vomiting, diarrhea, constipation, or hematochezia. He has also never had endoscopy or colonoscopy and has never had any GI history in the past. He has been found on admission to have anemia with hemoglobin between 8 to 9 range. His MCV and RDW are both normal, but his iron parameters show an iron of 19 with a saturation of 15%. The patient's albumin is low, which is presumed to be due to his nephrotic syndrome and proteinuria. He is undergoing a separate workup for these issues. PAST MEDICAL HISTORY: Remarkable for history of renal failure, anasarca, hypoalbuminemia, and glomerulonephritis. FAMILY HISTORY: Negative for any significant gastrointestinal disorders. SOCIAL HISTORY: The patient is . He is a [place]. He has 4 children. He does not smoke or drink alcohol. REVIEW OF SYSTEMS: Otherwise negative. PHYSICAL EXAMINATION: GENERAL: Pleasant, man, seen in his room. HEENT: Normocephalic and atraumatic. Sclerae anicteric. Oropharynx clear. NECK: Supple. CHEST: Clear to auscultation. CARDIOVASCULAR: Reveals regular rate. ABDOMEN: Soft, obese with good bowel sounds. There is no organomegaly. EXTREMITIES: Reveal edema, which was trace to 1+. NEUROLOGIC: Grossly nonfocal. LABORATORY DATA: Noted. ASSESSMENT: This patient has iron deficiency anemia. The patient has never had endoscopy or colonoscopy and therefore these tests would be appropriate. However, the patient is currently undergoing management of his nephrotic syndrome and his congestive heart failure. He also is not his usual base hospital, which is the [facility] where he gets all of his care. He was strongly advised to cotton picker the [facility]. He is to have an endoscopy and colonoscopy to rule out malignancy of the GI tract. In the meantime, he should be given a proton pump inhibitor and his blood counts can be followed closely. Iron supplementation can also be given intravenously. RECOMMENDATIONS: Per above discussion and per orders written in the chart. Thank you for asking me to participate in the care of this patient. Antoinette Calderon M.D. DR: CONTRERAS JOB#: [id number] CC: FREDERICK
[2018-03-14] MEDS: Carvedilol 12.5mg tab ORAL SCH (21:33)
[2018-03-14] MEDS: Tamsulosin 0.4mg cap ORAL SCH (21:33)
--- NOTE | 2018-03-14 23:25 | NUR ---
HAND-OFF: Report given to FRANKY Stoner. Patient is in stable condition. Endorsed plan of care.
[2018-03-15] VITALS (7 sets, daily range): BP systolic 133–160; BP diastolic 60–80
--- NOTE | 2018-03-15 00:03 | NUR ---
NURSE NOTES: pt awake alert, no distress. no sob. denies pain. call light within reach. will monitor
[2018-03-15] MEDS: Levothyroxine 25mcg tab ORAL SCH (05:51)
--- NOTE | 2018-03-15 07:20 | NUR ---
HAND-OFF: Report given to JUAN WILKINS.
--- NOTE | 2018-03-15 07:30 | NUR ---
NURSE NOTES: Received report from Herbie WILKINS. Pt is awake, alert, oriented x4, laying in bed, head of bed elevated to high cano's, having breakfast. Denies pain. On room air with no respiratory distress. Skin is intact, with bilateral lower extremities edema. IV access on left AC #20G, saline lock, patent/intact. Pt is ambulatory with a walker, uses cane at home, feels weaker now needing a walker. Urinal at bedside. Call light is placed within easy reach, bed in lowest position, three side rails up, brakes engaged. alarm on.
[2018-03-15] MEDS ORDERED: Furosemide 40mg tab ORAL SCH (09:00)
[2018-03-15] MEDS: Carvedilol 12.5mg tab ORAL SCH (09:23)
[2018-03-15] MEDS: Heparin 5000 units/ml inj SUBQ SCH ×2 (09:26→21:35)
--- NOTE | 2018-03-15 10:01 | NUR ---
CASE MANAGEMENT:REVIEW 03/15/18 SI: MAMIE. CHARLIE. THYROID NODULE 98.5 74 18 160/71 96% ON RA IS: PROCRIT SQ MWF LASIX PO QD COREG PO Q12 SYNTHROID PO QD FOLATE PO QD HEPARIN SQ Q12 FLOMAX PO QHS PROTONIX PO QD : TELEMETRY STATUS DCP: PATIENT FROM HOME...UNABLE TO REACH SON..PER PATIENT SON PUT HIM OUT PLAN: MESSAGE LEFT FOR [facility] ON THURSDAY AND AGAIN TODAY...FAXED CLINICALS
--- NOTE | 2018-03-15 10:10 | NUR ---
INSURANCE PATIENT HAS BEEN REFERRED TO: [place] [facility] P:[phone] F:[phone]
--- NOTE | 2018-03-15 10:23 | NUR ---
DISCHARGE PLANNING CLINICALS WERE FAXED LAST WEEK AND AGAIN TODAY AT THE [place] [facility] MESSAGE WAS LEFT LAST WEEK AND AGAIN TODAY AT THE [facility] THUS FAR...NO RESPONSE REGARDING ACCEPTANCE FOR TRANSFER Addendum: 03/15/18 at 1203 by BEA WILSON LVN LVN REFERRED PATIENT TO [facility] T: [phone] F: [phone]
--- NOTE | 2018-03-15 11:54 | NUR ---
NURSE NOTES: Dr. Conklin seen and examined patient at bedside. Informed MD that physical therapist recommends short term SNF stay. MD acknowledged, ordered discharge planning to [facility] per case management. MD also informed that PT recommends front wheel walker. Orders entered, noted, and carried out. Central called and per central have a front wheel walker. 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 Noted. Will continue to monitor patient.
--- NOTE | 2018-03-15 12:17 | Pulmonology Progress Note ---
Assessment/Plan Problems: (1) Glomerulonephritis (2) Anasarca (3) Proteinuria (4) CHARLIE (acute kidney injury) (5) Anemia (6) Thyroid nodule (7) Iron deficiency anemia Assessment/Plan -Monitor volumes and renal function, cautious diuresis -BP control, inc Coreg -F/U cards and renal recs -F/U studies, may need renal Bx -F/U heme recs, continue IV Iron, GI eval pending -F/U Thyroid US to evaluate thyroid nodule -ENDO recs: continue synthroid, repeat TSH as OP -Observe off Abx per ID, diphteroids in urine likely contaminant -Cardiac diet -[facility] pending to [place] can likely go to SNF per PT recs DVT Prophylaxis: HEP SQ Code status: full Hospital Classification declaration: Based on this initial evaluation, and depending on the patient's clinical course, I anticipate that this patient will require hospitalization for 1-2days. Disposition: Once the patient is stable to leave the hospital, I anticipate the patient will likely be discharged home or transferred to the [place] Subjective Allergies: Coded Allergies: No Known Allergies (Unverified , 03/10/18) Subjective AFVSS on RA No labs today GI eval noted No change in SOB no cough no wheezing no SOB no F/C Pending transfer to [place] Objective Last 24 Hour Vital Signs Date Time Temp Pulse Resp B/P (MAP) Pulse Ox O2 Delivery O2 Flow Rate FiO2 03/15/18 09:23 74 160/71 03/15/18 08:00 98.5 74 18 160/71 (100) 96 03/15/18 03:39 98.0 84 18 156/80 (105) 93 03/15/18 00:01 98.9 86 18 155/79 (104) 93 03/14/18 23:53 Room Air 03/14/18 21:33 64 160/69 03/14/18 21:02 Room Air 03/14/18 20:00 73 03/14/18 20:00 98.9 64 18 160/69 (99) 93 03/14/18 16:00 68 03/14/18 16:00 97.9 65 20 143/88 (106) 98 Intake and Output 03/14/18 03/15/18 19:00 07:00 Intake Total 120 ml 200 ml Output Total 400 ml Balance -280 ml 200 ml Intake Oral 120 ml 200 ml Output Urine Total 400 ml # Voids 2 # Bowel Movements 1 General Appearance: WD/WN, no acute distress HEENT: normocephalic, atraumatic, anicteric, mucous membranes moist Respiratory/Chest: chest wall non-tender, lungs clear, normal breath sounds, no respiratory distress, no accessory muscle use Cardiovascular: normal peripheral pulses, normal rate, regular rhythm Abdomen: normal bowel sounds, soft, non tender, no organomegaly, non distended , no mass Extremities: no cyanosis, no clubbing, other - 1+ edema Current Medications Medications (Trade) Dose Ordered Sig/Panfilo Route PRN Reason Start Time Stop Time Status Last Admin Dose Admin Acetaminophen (Tylenol) 650 mg Q6H PRN ORAL Mild Pain/Temp > 100.5 03/11/18 09:45 04/10/18 09:44 Carvedilol (Coreg) 12.5 mg EVERY 12 HOURS ORAL 03/14/18 21:00 04/09/18 20:59 03/15/18 09:23 Epoetin Bobby (Procrit (for non ESRD use)) 10,000 units THU-WED-THU SUBQ 03/15/18 21:00 04/14/18 20:59 Folic Acid (Folate) 3 mg DAILY ORAL 03/12/18 14:45 04/11/18 14:44 03/15/18 09:23 Furosemide (Lasix) 40 mg DAILY ORAL 03/15/18 09:00 04/14/18 08:59 03/15/18 09:23 Heparin Sodium (Porcine) (Heparin 5000 units/ml) 5,000 units EVERY 12 HOURS SUBQ 03/11/18 21:00 04/10/18 20:59 03/15/18 09:26 Hydralazine HCl (Apresoline) 25 mg Q4H PRN ORAL bp over 160 syst 03/13/18 13:15 04/12/18 13:14 Levothyroxine Sodium (Synthroid) 25 mcg DAILY@0630 ORAL 03/13/18 06:30 04/12/18 06:29 03/15/18 05:51 Ondansetron HCl (Zofran) 4 mg Q6H PRN IVP Nausea & Vomiting 03/11/18 09:45 04/10/18 09:44 Pantoprazole (Protonix) 40 mg DAILY ORAL 03/11/18 14:30 04/10/18 14:29 03/15/18 09:23 Tamsulosin HCl (Flomax) 0.4 mg BEDTIME ORAL 03/11/18 21:00 04/10/18 20:59 03/14/18 21:33 Rambo Conklin MD Mar 15, 2018 12:17
--- NOTE | 2018-03-15 12:38 | Infectious Diseases Prog Note ---
Assessment/Plan Assessment/Plan ASSESSMENT AND PLAN: 1. + ua, rule out uti, no urinary symptoms, no fevers, no leukocytosis - urine culture with diphtheroids which is likely contaminant - no objective indication for uti or abx tx - continue to monitor clinically - monitor labs - stable ID standpoint 2. Acute kidney injury, elevated creatinine, chronic renal failure. 3. Hypernatremia. 4. Anemia. 5. Hypertension. 6. Blood pressure treatment per primary and consultants. 7. CHF. 8. Edema. 9. Anasarca. 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 11. Past medical history noted. 12. No known drug allergies. 13. Social history negative. 14. Family history noncontributory. 15. MAR was noted. 16. Case discussed with RN. 17. Continue treatment per primary consultants. Subjective Constitutional: Reports: fatigue; Denies: fever HEENT: Denies: congestion Respiratory: Denies: shortness of breath Cardiovascular: Denies: chest pain Gastrointestinal/Abdominal: Denies: nausea, vomiting, diarrhea Genitourinary: Reports: other - no jiménez ; Denies: dysuria, hematuria Neurologic: Denies: headache Psychiatric: Denies: depression Skin: Denies: rash Hematologic: Denies: bleeding Musculoskeletal: Denies: pain Allergies: Coded Allergies: No Known Allergies (Unverified , 03/10/18) Objective Vital Signs Last 24 Hour Vital Signs Date Time Temp Pulse Resp B/P (MAP) Pulse Ox O2 Delivery O2 Flow Rate FiO2 03/15/18 09:23 74 160/71 03/15/18 08:00 98.5 74 18 160/71 (100) 96 03/15/18 03:39 98.0 84 18 156/80 (105) 93 03/15/18 00:01 98.9 86 18 155/79 (104) 93 03/14/18 23:53 Room Air 03/14/18 21:33 64 160/69 03/14/18 21:02 Room Air 03/14/18 20:00 73 03/14/18 20:00 98.9 64 18 160/69 (99) 93 03/14/18 16:00 68 03/14/18 16:00 97.9 65 20 143/88 (106) 98 Height (Feet): 5 Height (Inches): 11.00 Weight (Pounds): 288 General Appearance: no acute distress HEENT: normocephalic, atraumatic, anicteric, mucous membranes moist Respiratory/Chest: lungs clear, normal breath sounds, no respiratory distress, no accessory muscle use Cardiovascular: normal rate, regular rhythm, no gallop/murmur, no JVD Abdomen: normal bowel sounds, soft, non tender, no organomegaly, non distended Genitourinary: other - no jiménez Extremities: no cyanosis Skin: no rash Neurologic/Psychiatric: 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 There is bilateral interstitial edema. The left hemidiaphragm is obscured, pleural effusion possible Impression: Cardiomegaly with interstitial edema Possible left pleural effusion CT abdomen and pelvis: IMPRESSION: 1. 6 mm nonobstructive stone in the left lower renal pole. 2. Simple-appearing renal cortical cysts, including a 5 cm cyst in the left lower pole and. 3.6 cm cyst in the right mid kidney. 3. Mild sigmoid colonic diverticulosis without evidence of acute inflammation. Microbiology Date/Time Source Procedure Growth Status 03/10/18 14:20 Urine,Clean Catch Urine Culture - Final Diphtheroids Complete Labs Test 03/13/18 13:55 03/13/18 17:50 03/13/18 17:55 03/14/18 06:52 C-Reactive Protein, Quantitative 0.9 mg/dL (0.00-0.90) 1.6 mg/dL (0.00-0.90) Sodium Level 142 MMOL/L (136-145) 140 MMOL/L (136-145) Potassium Level 4.1 MMOL/L (3.5-5.1) 4.0 MMOL/L (3.5-5.1) Chloride Level 108 MMOL/L (98-107) 107 MMOL/L (98-107) Carbon Dioxide Level 28 MMOL/L (21-32) 29 MMOL/L (21-32) Anion Gap 6 mmol/L (5-15) 4 mmol/L (5-15) Blood Urea Nitrogen 27 mg/dL (7-18) 29 mg/dL (7-18) Creatinine 1.7 MG/DL (0.55-1.30) 1.6 MG/DL (0.55-1.30) Estimat Glomerular Filtration Rate mL/min (>60) mL/min (>60) Glucose Level 114 MG/DL (74-106) 82 MG/DL (74-106) Calcium Level 8.0 MG/DL (8.5-10.1) 7.8 MG/DL (8.5-10.1) Total Bilirubin 0.2 MG/DL (0.2-1.0) 0.2 MG/DL (0.2-1.0) Aspartate Amino Transf (AST/SGOT) 18 U/L (15-37) 14 U/L (15-37) Alanine Aminotransferase (ALT/SGPT) 15 U/L (12-78) 12 U/L (12-78) Alkaline Phosphatase 73 U/L (46-116) 64 U/L (46-116) Total Protein 4.8 G/DL (6.4-8.2) 5.1 G/DL (6.4-8.2) Albumin 1.5 G/DL (3.4-5.0) 1.3 G/DL (3.4-5.0) Globulin 3.3 g/dL 3.8 g/dL Albumin/Globulin Ratio 0.5 (1.0-2.7) 0.3 (1.0-2.7) White Blood Count 6.6 K/UL (4.8-10.8) 5.3 K/UL (4.8-10.8) Red Blood Count 3.71 M/UL (4.70-6.10) 3.48 M/UL (4.70-6.10) Hemoglobin 9.8 G/DL (14.2-18.0) 9.0 G/DL (14.2-18.0) Hematocrit 31.3 % (42.0-52.0) 28.9 % (42.0-52.0) Mean Corpuscular Volume 84 FL (80-99) 83 FL (80-99) Mean Corpuscular Hemoglobin 26.3 PG (27.0-31.0) 26.0 PG (27.0-31.0) Mean Corpuscular Hemoglobin Concent 31.3 G/DL (32.0-36.0) 31.3 G/DL (32.0-36.0) Red Cell Distribution Width 13.9 % (11.6-14.8) 14.0 % (11.6-14.8) Platelet Count 213 K/UL (150-450) 222 K/UL (150-450) Mean Platelet Volume 5.7 FL (6.5-10.1) 6.1 FL (6.5-10.1) Neutrophils (%) (Auto) 53.8 % (45.0-75.0) 52.2 % (45.0-75.0) Lymphocytes (%) (Auto) 30.8 % (20.0-45.0) 32.7 % (20.0-45.0) Monocytes (%) (Auto) 7.6 % (1.0-10.0) 8.1 % (1.0-10.0) Eosinophils (%) (Auto) 6.6 % (0.0-3.0) 6.0 % (0.0-3.0) Basophils (%) (Auto) 1.3 % (0.0-2.0) 1.0 % (0.0-2.0) Uric Acid 8.9 MG/DL (2.6-7.2) Phosphorus Level 3.4 MG/DL (2.5-4.9) Magnesium Level 1.6 MG/DL (1.8-2.4) Iron Level 19 ug/dL (50-175) Total Iron Binding Capacity 130 ug/dL (250-450) Percent Iron Saturation 15 % (15-50) Unsaturated Iron Binding 111 ug/dL (112-346) Pro-B-Type Natriuretic Peptide 374 pg/mL (0-125) Current Medications Medications (Trade) Dose Ordered Sig/Panfilo Route PRN Reason Start Time Stop Time Status Last Admin Dose Admin Acetaminophen (Tylenol) 650 mg Q6H PRN ORAL Mild Pain/Temp > 100.5 03/11/18 09:45 04/10/18 09:44 Carvedilol (Coreg) 25 mg EVERY 12 HOURS ORAL 03/15/18 21:00 04/09/18 20:59 Epoetin Bobby (Procrit (for non ESRD use)) 10,000 units THU-THU-THU SUBQ 03/15/18 21:00 04/14/18 20:59 Folic Acid (Folate) 3 mg DAILY ORAL 03/12/18 14:45 04/11/18 14:44 03/15/18 09:23 Furosemide (Lasix) 40 mg DAILY ORAL 03/15/18 09:00 04/14/18 08:59 03/15/18 09:23 Heparin Sodium (Porcine) (Heparin 5000 units/ml) 5,000 units EVERY 12 HOURS SUBQ 03/11/18 21:00 04/10/18 20:59 03/15/18 09:26 Hydralazine HCl (Apresoline) 25 mg Q4H PRN ORAL bp over 160 syst 03/13/18 13:15 04/12/18 13:14 Levothyroxine Sodium (Synthroid) 25 mcg DAILY@0630 ORAL 03/13/18 06:30 04/12/18 06:29 03/15/18 05:51 Ondansetron HCl (Zofran) 4 mg Q6H PRN IVP Nausea & Vomiting 03/11/18 09:45 04/10/18 09:44 Pantoprazole (Protonix) 40 mg DAILY ORAL 03/11/18 14:30 04/10/18 14:29 03/15/18 09:23 Tamsulosin HCl (Flomax) 0.4 mg BEDTIME ORAL 03/11/18 21:00 04/10/18 20:59 03/14/18 21:33 Fiorella Mclaughlin MD Mar 15, 2018 12:38
--- NOTE | 2018-03-15 13:46 | Cardiac Electrophysiology PN ---
Assessment/Plan Assessment/Plan 1. Severe bilateral lower extremity edema. Echocardiogram EF 60%. Also has renal failure Cr 1.6. On Lasix 40 mg po daily 2. Hypertension. Continue Lasix and Coreg 6.25 mg b.i.d. Avoid BOBBY inhibitor and angiotensin-receptor blockers in view of his renal failure at this point. 3. Morbid obesity. Transfer pending to special education case manager Subjective Subjective No CP or SOB. Dc planning in progress. Objective Last 24 Hour Vital Signs Date Time Temp Pulse Resp B/P (MAP) Pulse Ox O2 Delivery O2 Flow Rate FiO2 03/15/18 12:00 98.1 69 18 134/65 (88) 94 03/15/18 09:23 74 160/71 03/15/18 08:00 98.5 74 18 160/71 (100) 96 03/15/18 03:39 98.0 84 18 156/80 (105) 93 03/15/18 00:01 98.9 86 18 155/79 (104) 93 03/14/18 23:53 Room Air 03/14/18 21:33 64 160/69 03/14/18 21:02 Room Air 03/14/18 20:00 73 03/14/18 20:00 98.9 64 18 160/69 (99) 93 03/14/18 16:00 68 03/14/18 16:00 97.9 65 20 143/88 (106) 98 Intake and Output 03/14/18 03/15/18 19:00 07:00 Intake Total 120 ml 200 ml Output Total 400 ml Balance -280 ml 200 ml Intake Oral 120 ml 200 ml Output Urine Total 400 ml # Voids 2 # Bowel Movements 1 Objective HEAD AND NECK: Mild JVD. LUNGS: Decreased breath sounds. CARDIOVASCULAR: Regular S1 and S2 with no gallop. ABDOMEN: Soft. EXTREMITIES: 2+ pitting edema. Jose Chairez MD Mar 15, 2018 13:46
--- NOTE | 2018-03-15 13:54 | Nephrology Progress Note ---
Assessment/Plan Problem List: (1) CHARLIE (acute kidney injury) (2) Proteinuria (3) Congestive heart failure (CHF) (4) Anasarca (5) Nephrotic syndrome Assessment Anemia, Proteinuria, HypoAlbuminemia, Renal Failure ? Diabetic ? Amyloidosis HTN ? CHF Plan Iron IV Mag EPO 24 H urine protein close to 8 grams Protein SPEP UPEP HgbA1c : 6.2 BP control, up on Coreg 2D echo noted lasix to po per orders Kidney Bx as OP ? Subjective ROS Limited/Unobtainable: No Constitutional: Reports: malaise Objective Objective Last 24 Hour Vital Signs Date Time Temp Pulse Resp B/P (MAP) Pulse Ox O2 Delivery O2 Flow Rate FiO2 03/15/18 12:00 98.1 69 18 134/65 (88) 94 03/15/18 09:23 74 160/71 03/15/18 08:00 98.5 74 18 160/71 (100) 96 03/15/18 03:39 98.0 84 18 156/80 (105) 93 03/15/18 00:01 98.9 86 18 155/79 (104) 93 03/14/18 23:53 Room Air 03/14/18 21:33 64 160/69 03/14/18 21:02 Room Air 03/14/18 20:00 73 03/14/18 20:00 98.9 64 18 160/69 (99) 93 03/14/18 16:00 68 03/14/18 16:00 97.9 65 20 143/88 (106) 98 Intake and Output 03/14/18 03/15/18 19:00 07:00 Intake Total 120 ml 200 ml Output Total 400 ml Balance -280 ml 200 ml Intake Oral 120 ml 200 ml Output Urine Total 400 ml # Voids 2 # Bowel Movements 1 Height (Feet): 5 Height (Inches): 11.00 Weight (Pounds): 288 General Appearance: no apparent distress Objective no change Arcadio Guevara MD Mar 15, 2018 13:54
--- NOTE | 2018-03-15 14:24 | NUR ---
RD ASSESSMENT & RECOMMENDATIONS SEE CARE ACTIVITY FOR COMPLETE ASSESSMENT DAILY ESTIMATED NEEDS: Needs based on Obesity, CKD/ 91kg abw 20-22 kcals/kg 1020-7448 total kcals 0.9-1.0 g protein/kg 82-91 g total protein 18-20 mL/kg 5912-6966 total fluid mLs NUTRITION DIAGNOSIS: Altered nutrition related lab values R/T renal dysfunction, clinical condition as evidenced by elev creat (1.6), low mag (1.6), A1C=6.2. CURRENT DIET:CARDIAC PO DIET RECOMMENDATIONS: CCHO MED, CARDIAC / texture as tolerated ADDITIONAL RECOMMENDATIONS: * Standing wt as able for accurate CBW * Monitor lytes closely w/ lasix, replete as needed * Monitor BGs closely, need for hypoglycemic agents -A1C 6.2
--- NOTE | 2018-03-15 15:11 | NUR ---
P.T Note: P.T evaluation completed and treatment initiated. Please refer to P.T evaluation for current functional status. Skilled P.T service is warranted to improve strength, balance ad endurance to increase safety and fictional mobility independence during stay. Recommend FWW VS cane and SNF for short term rehab VS home with P.T at [place]. Thank you for this referral. Addendum: 03/15/18 at 1512 by ZA GOODE PT Amended: Links added.
--- NOTE | 2018-03-15 16:01 | General Progress Note ---
Assessment/Plan Assessment/Plan Assessment and Recs: # Anemia of iron deficiency, has been started on iron --> spep is still pending to eval if any band restrictions are noted --> anemia panel has been ordered, tsh as well --> endo, cards and renal recs reviewed --> transfuse if hgb is less than 7 --> iron iv has been ordered # Thyroid nodule 2.3 x 2.2 x 1.8 cm hypodense nodule in the thyroid isthmus. --> Recommend further evaluation with thyroid ultrasound (pending) # Anasarca -- potentially proteinuria related --> further recs per neprho --> eval with cards as well if chf # CHARLIE (acute kidney injury) # Proteinuria # Glomerulonephritis # Congestive heart failure (CHF) The time of encounter does not reflect the time of the note Greatly appreciate consultation! Subjective Constitutional: Denies: no symptoms, chills, diaphoresis, fever, malaise, weakness, other HEENT: Denies: no symptoms, eye pain, blurred vision, tearing, double vision, ear pain, ear discharge, nose pain, nose congestion, throat pain, throat swelling, mouth pain, mouth swelling, other Cardiovascular: Denies: no symptoms, chest pain, edema, irregular heart rate, lightheadedness, palpitations, syncope, other Respiratory: Denies: no symptoms, cough, orthopnea, shortness of breath, SOB with excertion, SOB at rest, sputum, stridor, wheezing, other Gastrointestinal/Abdominal: Denies: no symptoms, abdomen distended, abdominal pain, black stools, tarry stools, blood in stool, constipated, diarrhea, difficulty swallowing, nausea, poor appetite, poor fluid intake, rectal bleeding , vomiting, other Genitourinary: Denies: no symptoms, burning, discharge, frequency, flank pain, hematuria, incontinence, pain, urgency, other Neurologic/Psychiatric: Denies: no symptoms, anxiety, depressed, emotional problems, headache, numbness, paresthesia, pre-existing deficit, seizure, tingling, tremors, weakness, other Endocrine: Denies: no symptoms, excessive sweating, flushing, intolerance to cold, intolerance to heat, increased hunger, increased thirst, increased urine, unexplained weight gain, unexplained weight loss, other Hematologic/Lymphatic: Denies: no symptoms, anemia, easy bleeding, easy bruising, other Allergies: Coded Allergies: No Known Allergies (Unverified , 03/10/18) Subjective 03/14: getting lasix and coreg, diuresis, not bleeding 03/15: awake and comfortable, no chest pain or SOB, no bleeding. no events Objective Last 24 Hour Vital Signs Date Time Temp Pulse Resp B/P (MAP) Pulse Ox O2 Delivery O2 Flow Rate FiO2 03/15/18 12:00 98.1 69 18 134/65 (88) 94 03/15/18 09:23 74 160/71 03/15/18 09:00 Room Air 03/15/18 08:00 98.5 74 18 160/71 (100) 96 03/15/18 03:39 98.0 84 18 156/80 (105) 93 03/15/18 00:01 98.9 86 18 155/79 (104) 93 03/14/18 23:53 Room Air 03/14/18 21:33 64 160/69 03/14/18 21:02 Room Air 03/14/18 20:00 73 03/14/18 20:00 98.9 64 18 160/69 (99) 93 Intake and Output 03/14/18 03/15/18 19:00 07:00 Intake Total 120 ml 200 ml Output Total 400 ml Balance -280 ml 200 ml Intake Oral 120 ml 200 ml Output Urine Total 400 ml # Voids 2 # Bowel Movements 1 Height (Feet): 5 Height (Inches): 11.00 Weight (Pounds): 288 Objective General Appearance: no apparent distress Head: normocephalic, atraumatic Eyes: bilateral eye normal inspection, bilateral eye PERRL ENT: hearing grossly normal, normal pharynx Neck: full range of motion, supple/symm/no masses Respiratory: chest non-tender, lungs clear, normal breath sounds, no respiratory distress Cardiovascular: regular rate, rhythm, no edema, edema - BLE and BUE edema Gastrointestinal: normal bowel sounds, non tender Neurologic: alert, oriented x3, responsive Psychiatric: judgement/insight normal, mood/affect normal Skin: normal color, ++ [email or web address] Lucio MD Mar 15, 2018 16:01
--- NOTE | 2018-03-15 16:03 | Diagnostic Imaging Report ---
Indication:Thyroid nodule Technique: Grayscale and duplex Doppler imaging of the thyroid gland performed. Comparison: None Findings: The thyroid gland is mildly heterogeneous in appearance. The right lobe measures 5.4 x 2 x 2.5 cm. The left lobe 4.6 x 1.9 x 2.4 cm. There is a cyst in the midpole of the right thyroid lobe. There is a tiny nodule in the right lobe measuring 3 mm. There is a dominant well-circumscribed heterogeneous nodule that is partially cystic and the lower part of the left thyroid lobe measuring about 2 x 3 cm. IMPRESSION: Dominant, heterogeneous complex nodule in the left thyroid lobe measuring 2 x 3 cm. Consider FNA and/or evaluation with I-123 scan. Few hypoechoic nodules within both lobes nonspecific in nature.
--- NOTE | 2018-03-15 16:40 | NUR ---
NURSE NOTES: Patient arrived on unit via hospital bed assisted by 2 nurses. Patient is awake and able to verbalize all needs. Patient is stable with no s/s acute distress. Patient denies pain at this time. No difficulty breathing noted. Skin is clean, dry, and intact. Patient oriented to room, call light, and unit. Patient in bed in locked position and call light within reach. All needs met at this time. All safety measures provided at this time. Will continue to monitor.
--- NOTE | 2018-03-15 16:50 | NUR ---
TRANSFER TO FLOOR: Patient transferred to Rm 303-1 from Rm 203-2 via hospital bed as ordered. Tele monitor with monitoring specialist. Report given to Lisbeth WILKINS. Belonging's list checked with the receiving nurse in front of the pt. Skin is intact. Endorsed plan of care.
--- NOTE | 2018-03-15 18:07 | Cardiology Report ---
APPROVED REPORT EKG Measurement Heart [id number] Normal sinus rhythm Nonspecific T wave abnormality Abnormal ECG
--- NOTE | 2018-03-15 19:30 | NUR ---
NURSE NOTES Patient received from Bawte Cecilia patient in bed A/A/ X4. patient denies any pain at this time . no sob / no n/v noted .LAC g#20 H/L Patent AND intact . patient skin intact. patient family (SON) Notified patient location ROOM 303 bed 1. call light within reach . bed in low position at all times. will continue to monitor patient . Addendum: 03/16/18 at 0736 by OMKAR MOCTEZUMA LVN Patient A/A/OX4
--- NOTE | 2018-03-15 20:08 | General Progress Note ---
Assessment/Plan Assessment/Plan Assessment - Iron deficiency anemia - CHF - Renal failure - Anasarca - Await transfer to [facility] Recommendations - Continue Venofer - po as tolerated - [facility], once improved Subjective Allergies: Coded Allergies: No Known Allergies (Unverified , 03/10/18) Subjective Above noted Feels OK no abdominal symptoms Objective Last 24 Hour Vital Signs Date Time Temp Pulse Resp B/P (MAP) Pulse Ox O2 Delivery O2 Flow Rate FiO2 03/15/18 16:45 98.4 73 18 154/69 (97) 97 03/15/18 16:00 97.8 71 19 147/60 (89) 93 03/15/18 12:00 98.1 69 18 134/65 (88) 94 03/15/18 09:23 74 160/71 03/15/18 09:00 Room Air 03/15/18 08:00 98.5 74 18 160/71 (100) 96 03/15/18 03:39 98.0 84 18 156/80 (105) 93 03/15/18 00:01 98.9 86 18 155/79 (104) 93 03/14/18 23:53 Room Air 03/14/18 21:33 64 160/69 03/14/18 21:02 Room Air Intake and Output 03/14/18 03/15/18 19:00 07:00 Intake Total 120 ml 200 ml Output Total 400 ml Balance -280 ml 200 ml Intake Oral 120 ml 200 ml Output Urine Total 400 ml # Voids 2 # Bowel Movements 1 Height (Feet): 5 Height (Inches): 11.00 Weight (Pounds): 288 Objective WDWN NCAT supple CTA RRR Abd soft ND no edema Antoinette Calderon MD Mar 15, 2018 20:08
[2018-03-15] MEDS ORDERED: Epogen (for non ESRD use) SUBQ SCH (21:00)
[2018-03-15] MEDS ORDERED: Carvedilol 25mg Tab ORAL SCH (21:00)
[2018-03-15] MEDS: Tamsulosin 0.4mg cap ORAL SCH (21:26)
[2018-03-15] MEDS: Carvedilol 25mg Tab ORAL SCH (21:27)
[2018-03-15] MEDS: Epogen (for non ESRD use) SUBQ SCH (21:51)
[2018-03-16] VITALS: BP 138/73
[2018-03-16 04:00] VITALS: BP_SYST 141; BP_SYST 144; BP_DIAS 74; BP_DIAS 75
[2018-03-16 06:06] LABS: BASOPHILS % (AUTO) 0.7 % (0.0-2.0); EOSINOPHILS % (AUTO) 4.9 % (0.0-3.0); HEMOGLOBIN 8.8 G/DL (14.2-18.0); LYMPHOCYTES % (AUTO) 27.5 % (20.0-45.0); MEAN CORPUSCULAR VOLUME 84 FL (80-99); MONOCYTES % (AUTO) 11.3 % (1.0-10.0); NEUTROPHILS % (AUTO) 55.6 % (45.0-75.0); PLATELET COUNT 205 K/UL (150-450); RED BLOOD COUNT 3.35 M/UL (4.70-6.10); RED CELL DISTRIBUTION WIDTH 14.1 % (11.6-14.8); WHITE BLOOD COUNT 5.1 K/UL (4.8-10.8)
[2018-03-16] MEDS: Levothyroxine 25mcg tab ORAL SCH (06:25)
[2018-03-16 06:56] LABS: ALANINE AMINOTRANSFERASE 12 U/L (12-78); ALBUMIN 1.1 G/DL (3.4-5.0); ALBUMIN/GLOBULIN RATIO 0.3 (1.0-2.7); ALKALINE PHOSPHATASE 65 U/L (46-116); ANION GAP 3 mmol/L (5-15); ASPARTATE AMINO TRANSFERASE 16 U/L (15-37); BILIRUBIN,TOTAL 0.1 MG/DL (0.2-1.0); BLOOD UREA NITROGEN 33 mg/dL (7-18); CALCIUM 7.5 MG/DL (8.5-10.1); CARBON DIOXIDE 29 MMOL/L (21-32); CHLORIDE 108 MMOL/L (98-107); CREATININE 1.8 MG/DL (0.55-1.30); PHOSPHORUS 3.3 MG/DL (2.5-4.9); POTASSIUM 4.3 MMOL/L (3.5-5.1); SODIUM 140 MMOL/L (136-145)
--- NOTE | 2018-03-16 07:36 | NUR ---
HAND-OFF: Report given to Joe Davispatient instable conditions Addendum: 03/16/18 at 2043 by OMKAR MOCTEZUMA LVN HAND-OFF: Report given to NATHAN Davis patient in stable condition.
[2018-03-16 08:00] VITALS: BP 139/72
--- NOTE | 2018-03-16 08:02 | NUR ---
Pt in bed a/o x 4 in no acute distress, pt able to verbalize needs. IV to left AC SL. Pt has cane at bedside. 2+ edema to bilateral lower legs. Discussed with pt POC, board updated. Pt left in bed in low position, call light within reach, bed locked.
[2018-03-16] MEDS: Carvedilol 25mg Tab ORAL SCH ×2 (09:22→20:14)
[2018-03-16] MEDS: Heparin 5000 units/ml inj SUBQ SCH ×2 (09:24→20:18)
[2018-03-16] MEDS: Furosemide 40mg tab ORAL SCH (09:24)
--- NOTE | 2018-03-16 10:34 | Cardiac Electrophysiology PN ---
Assessment/Plan Assessment/Plan 1. Severe bilateral lower extremity edema. Echocardiogram EF 60%. Also has renal failure Cr 1.8. On Lasix 40 mg po daily 2. Hypertension. Continue Lasix and Coreg 6.25 mg b.i.d. Avoid BOBBY inhibitor and angiotensin-receptor blockers in view of his renal failure at this point. 3. Morbid obesity. 4. Renal failure Cr 1.8 Transfer pending Subjective Subjective No CP or SOB. Off tele. Diuresing well. Objective Last 24 Hour Vital Signs Date Time Temp Pulse Resp B/P (MAP) Pulse Ox O2 Delivery O2 Flow Rate FiO2 03/16/18 09:22 76 139/72 03/16/18 09:00 Room Air 03/16/18 08:00 98.6 76 21 139/72 (94) 95 03/16/18 04:00 98.0 83 18 144/74 (97) 97 03/16/18 00:00 98.2 81 18 138/73 (94) 96 03/15/18 21:27 78 141/69 03/15/18 21:00 Room Air 03/15/18 20:00 98.4 78 17 141/69 (93) 96 03/15/18 16:45 98.4 73 18 154/69 (97) 97 03/15/18 16:00 97.8 71 19 147/60 (89) 93 03/15/18 12:00 98.1 69 18 134/65 (88) 94 Intake and Output 03/15/18 03/16/18 19:00 07:00 Intake Total 940 ml 1040 ml Output Total 400 ml Balance 940 ml 640 ml Intake Oral 240 ml 1040 ml Other 700 ml Output Urine Total 400 ml # Voids 4 # Bowel Movements 3 Laboratory Tests Test 03/16/18 05:20 White Blood Count 5.1 K/UL (4.8-10.8) Red Blood Count 3.35 M/UL (4.70-6.10) L Hemoglobin 8.8 G/DL (14.2-18.0) L Hematocrit 28.0 % (42.0-52.0) L Mean Corpuscular Volume 84 FL (80-99) Mean Corpuscular Hemoglobin 26.1 PG (27.0-31.0) L Mean Corpuscular Hemoglobin Concent 31.3 G/DL (32.0-36.0) L Red Cell Distribution Width 14.1 % (11.6-14.8) Platelet Count 205 K/UL (150-450) Mean Platelet Volume 6.3 FL (6.5-10.1) L Neutrophils (%) (Auto) 55.6 % (45.0-75.0) Lymphocytes (%) (Auto) 27.5 % (20.0-45.0) Monocytes (%) (Auto) 11.3 % (1.0-10.0) H Eosinophils (%) (Auto) 4.9 % (0.0-3.0) H Basophils (%) (Auto) 0.7 % (0.0-2.0) Sodium Level 140 MMOL/L (136-145) Potassium Level 4.3 MMOL/L (3.5-5.1) Chloride Level 108 MMOL/L (98-107) H Carbon Dioxide Level 29 MMOL/L (21-32) Anion Gap 3 mmol/L (5-15) L Blood Urea Nitrogen 33 mg/dL (7-18) H Creatinine 1.8 MG/DL (0.55-1.30) H Estimat Glomerular Filtration Rate mL/min (>60) Glucose Level 94 MG/DL (74-106) Calcium Level 7.5 MG/DL (8.5-10.1) L Phosphorus Level 3.3 MG/DL (2.5-4.9) Magnesium Level 1.8 MG/DL (1.8-2.4) Total Bilirubin 0.1 MG/DL (0.2-1.0) L Aspartate Amino Transf (AST/SGOT) 16 U/L (15-37) Alanine Aminotransferase (ALT/SGPT) 12 U/L (12-78) Alkaline Phosphatase 65 U/L (46-116) C-Reactive Protein, Quantitative 4.1 mg/dL (0.00-0.90) H Pro-B-Type Natriuretic Peptide 288 pg/mL (0-125) H Total Protein 4.9 G/DL (6.4-8.2) L Albumin 1.1 G/DL (3.4-5.0) L Globulin 3.8 g/dL Albumin/Globulin Ratio 0.3 (1.0-2.7) L Objective HEAD AND NECK: Mild JVD. LUNGS: Decreased breath sounds. CARDIOVASCULAR: Regular S1 and S2 with no gallop. ABDOMEN: Soft. EXTREMITIES: 2+ pitting edema. Jose Chairez MD Mar 16, 2018 10:34
--- NOTE | 2018-03-16 11:43 | Nephrology Progress Note ---
Assessment/Plan Problem List: (1) CHARLIE (acute kidney injury) (2) Proteinuria (3) Congestive heart failure (CHF) (4) Anasarca (5) Nephrotic syndrome Assessment Anemia, Proteinuria, HypoAlbuminemia, Renal Failure ? Diabetic ? Amyloidosis HTN ? CHF Plan Iron IV Mag EPO 24 H urine protein close to 8 grams Protein SPEP UPEP HgbA1c : 6.2 BP control, up on Coreg 2D echo noted lasix to po per orders Kidney Bx as OP ? Subjective ROS Limited/Unobtainable: No Constitutional: Reports: malaise Objective Objective Last 24 Hour Vital Signs Date Time Temp Pulse Resp B/P (MAP) Pulse Ox O2 Delivery O2 Flow Rate FiO2 03/16/18 09:22 76 139/72 03/16/18 09:00 Room Air 03/16/18 08:00 98.6 76 21 139/72 (94) 95 03/16/18 04:00 98.0 83 18 144/74 (97) 97 03/16/18 00:00 98.2 81 18 138/73 (94) 96 03/15/18 21:27 78 141/69 03/15/18 21:00 Room Air 03/15/18 20:00 98.4 78 17 141/69 (93) 96 03/15/18 16:45 98.4 73 18 154/69 (97) 97 03/15/18 16:00 97.8 71 19 147/60 (89) 93 03/15/18 12:00 98.1 69 18 134/65 (88) 94 Intake and Output 03/15/18 03/16/18 19:00 07:00 Intake Total 940 ml 1040 ml Output Total 400 ml Balance 940 ml 640 ml Intake Oral 240 ml 1040 ml Other 700 ml Output Urine Total 400 ml # Voids 4 # Bowel Movements 3 Laboratory Tests 03/16/18 05:20: White Blood Count 5.1, Red Blood Count 3.35L, Hemoglobin 8.8L, Hematocrit 28.0L , Mean Corpuscular Volume 84, Mean Corpuscular Hemoglobin 26.1L, Mean Corpuscular Hemoglobin Concent 31.3L, Red Cell Distribution Width 14.1, Platelet Count 205, Mean Platelet Volume 6.3L, Neutrophils (%) (Auto) 55.6, Lymphocytes (%) (Auto) 27.5, Monocytes (%) (Auto) 11.3H, Eosinophils (%) (Auto) 4.9H, Basophils (%) (Auto) 0.7, Sodium Level 140, Potassium Level 4.3, Chloride Level 108H, Carbon Dioxide Level 29, Anion Gap 3L, Blood Urea Nitrogen 33H, Creatinine 1.8H, Estimat Glomerular Filtration Rate , Glucose Level 94, Calcium Level 7.5L, Phosphorus Level 3.3, Magnesium Level 1.8, Total Bilirubin 0.1L, Aspartate Amino Transf (AST/SGOT) 16, Alanine Aminotransferase (ALT/SGPT) 12, Alkaline Phosphatase 65, C-Reactive Protein, Quantitative 4.1H, Pro-B-Type Natriuretic Peptide 288H, Total Protein 4.9L, Albumin 1.1L, Globulin 3.8, Albumin/Globulin Ratio 0.3L Height (Feet): 5 Height (Inches): 11.00 Weight (Pounds): 288 General Appearance: no apparent distress Cardiovascular: normal rate Respiratory/Chest: decreased breath sounds Abdomen: distended Objective no change Arcadio Guevara MD Mar 16, 2018 11:43
[2018-03-16 12:07] VITALS: BP 139/81
--- NOTE | 2018-03-16 15:55 | NUR ---
Social Service Note YAS spoke with patient's son Robert regarding impending dc planning. Son states he spoke with CM that [facility] or [facility] for [facility]. Son would like to know his options. YAS explained [facility] only have [facility] and no other payor source for SNF. SW offered to arrange an [facility] through the [facility]. Son feels patient is medically compromised. Patient is working with PT and ambulating with minimal assist. Son indicated [facility]. YAS discussed the plan of son assisting patient back to [place] to his home and following with his PMD there at the [place]. Son states that, the plan is to have patient return however he is unsure how quickly he will be able to complete task. Son could not provide SW a definite date or time he would be available to picker patient. YAS informed MD, Director of CM and CM with barriers to discharge. Recommend continued PT daily, medical records to be provided to patient upon discharge to provide [facility] and a FWW. Will monitor and follow up.
[2018-03-16 16:00] VITALS: BP 126/70
--- NOTE | 2018-03-16 16:48 | Pulmonology Progress Note ---
Assessment/Plan Problems: (1) Glomerulonephritis Assessment & Plan: S/P biopsy in [place] @ the [facility] - results? (2) Anasarca Assessment & Plan: Improved with diuresis (3) Proteinuria (4) CHARLIE (acute kidney injury) (5) Anemia Assessment & Plan: MOJGAN, needs OP endoscopy (6) Thyroid nodule Assessment & Plan: Dominant, heterogeneous complex nodule in the left thyroid lobe measuring 2 x 3 cm (7) Iron deficiency anemia Assessment/Plan -Monitor volumes and renal function, now on PO Lasix -BP control -F/U cards and renal recs -F/U studies, need to get renal biopsy results from [place] -F/U heme recs, continue EPO -GI eval appreciated, needs outpatient ENDOSCOPY -ENDO recs: continue synthroid, repeat TSH as OP, will ask ENDO about w/u of nodule -Observe off Abx per ID, diphteroids in urine likely contaminant -Cardiac diet -[facility], Per CM not accepted @ [facility], d/w son Robert who is unable to care for patient. Will D/W CM Re: further plan DVT Prophylaxis: HEP SQ Code status: full Hospital Classification declaration: Based on this initial evaluation, and depending on the patient's clinical course, I anticipate that this patient will require hospitalization for 1-2days. Disposition: Once the patient is stable to leave the hospital, I anticipate the patient will likely be discharged home or transferred to the [place] Subjective Allergies: Coded Allergies: No Known Allergies (Unverified , 03/10/18) Subjective AFVSS on RA Not accepted to [place] or @ SNF D/W son Robert, apprarantely patient already had a kidney biopsy at the [place] - results are still pending Less SOB no cough no wheezing no CP no F/C Thyroid US noted Objective Last 24 Hour Vital Signs Date Time Temp Pulse Resp B/P (MAP) Pulse Ox O2 Delivery O2 Flow Rate FiO2 03/16/18 12:07 98.8 69 20 139/81 (100) 96 03/16/18 09:22 76 139/72 03/16/18 09:00 Room Air 03/16/18 08:00 98.6 76 21 139/72 (94) 95 03/16/18 04:00 98.0 83 18 144/74 (97) 97 03/16/18 00:00 98.2 81 18 138/73 (94) 96 03/15/18 21:27 78 141/69 03/15/18 21:00 Room Air 03/15/18 20:00 98.4 78 17 141/69 (93) 96 03/15/18 16:45 98.4 73 18 154/69 (97) 97 Intake and Output 03/15/18 03/16/18 19:00 07:00 Intake Total 940 ml 1040 ml Output Total 400 ml Balance 940 ml 640 ml Intake Oral 240 ml 1040 ml Other 700 ml Output Urine Total 400 ml # Voids 4 # Bowel Movements 3 General Appearance: WD/WN, no acute distress HEENT: normocephalic, atraumatic, anicteric, mucous membranes moist Respiratory/Chest: chest wall non-tender, lungs clear, normal breath sounds, no respiratory distress, no accessory muscle use Cardiovascular: normal peripheral pulses, normal rate, regular rhythm Abdomen: normal bowel sounds, soft, non tender, no organomegaly, non distended Extremities: no cyanosis, no clubbing, other - trace BAKARI Laboratory Tests 03/16/18 05:20: White Blood Count 5.1, Red Blood Count 3.35L, Hemoglobin 8.8L, Hematocrit 28.0L , Mean Corpuscular Volume 84, Mean Corpuscular Hemoglobin 26.1L, Mean Corpuscular Hemoglobin Concent 31.3L, Red Cell Distribution Width 14.1, Platelet Count 205, Mean Platelet Volume 6.3L, Neutrophils (%) (Auto) 55.6, Lymphocytes (%) (Auto) 27.5, Monocytes (%) (Auto) 11.3H, Eosinophils (%) (Auto) 4.9H, Basophils (%) (Auto) 0.7, Sodium Level 140, Potassium Level 4.3, Chloride Level 108H, Carbon Dioxide Level 29, Anion Gap 3L, Blood Urea Nitrogen 33H, Creatinine 1.8H, Estimat Glomerular Filtration Rate , Glucose Level 94, Calcium Level 7.5L, Phosphorus Level 3.3, Magnesium Level 1.8, Total Bilirubin 0.1L, Aspartate Amino Transf (AST/SGOT) 16, Alanine Aminotransferase (ALT/SGPT) 12, Alkaline Phosphatase 65, C-Reactive Protein, Quantitative 4.1H, Pro-B-Type Natriuretic Peptide 288H, Total Protein 4.9L, Albumin 1.1L, Globulin 3.8, Albumin/Globulin Ratio 0.3L Current Medications Medications (Trade) Dose Ordered Sig/Panfilo Route PRN Reason Start Time Stop Time Status Last Admin Dose Admin Acetaminophen (Tylenol) 650 mg Q6H PRN ORAL Mild Pain/Temp > 100.5 03/15/18 16:50 04/10/18 16:49 Carvedilol (Coreg) 25 mg EVERY 12 HOURS ORAL 03/15/18 21:00 04/09/18 20:59 03/16/18 09:22 Epoetin Bobby (Procrit (for non ESRD use)) 10,000 units THU-THU-THU SUBQ 03/15/18 21:00 04/14/18 20:59 03/15/18 21:51 Folic Acid (Folate) 3 mg DAILY ORAL 03/16/18 09:00 04/11/18 14:44 03/16/18 09:23 Furosemide (Lasix) 40 mg DAILY ORAL 03/16/18 09:00 04/14/18 08:59 03/16/18 09:24 Heparin Sodium (Porcine) (Heparin 5000 units/ml) 5,000 units EVERY 12 HOURS SUBQ 03/15/18 21:00 04/10/18 20:59 03/16/18 09:24 Hydralazine HCl (Apresoline) 25 mg Q4H PRN ORAL bp over 160 syst 03/15/18 16:51 04/12/18 16:50 Levothyroxine Sodium (Synthroid) 25 mcg DAILY@0630 ORAL 03/16/18 06:30 04/12/18 06:29 03/16/18 06:25 Ondansetron HCl (Zofran) 4 mg Q6H PRN IVP Nausea & Vomiting 03/15/18 16:51 04/10/18 16:50 Pantoprazole (Protonix) 40 mg DAILY ORAL 03/16/18 09:00 04/10/18 14:29 03/16/18 09:23 Tamsulosin HCl (Flomax) 0.4 mg BEDTIME ORAL 03/15/18 21:00 04/10/18 20:59 03/15/18 21:26 Rambo Conklin MD Mar 16, 2018 16:48
--- NOTE | 2018-03-16 17:11 | NUR ---
Ambulated pt in unit, cane assistance. Pt need hand held assist, tolerated fair. Pt unable to walk with cane without assist. Pt encouraged TCDB. Pt placed back in bed safely. Call light within reach, skid socks on, bed locked.
--- NOTE | 2018-03-16 17:25 | NUR ---
CASE MANAGEMENT: REVIEW SI: RENAL FAILURE . CHF . CHARLIE T 98.4 HR 78 RR 18 BP 154/69 SAT 93% ROOM AIR H/H 8.8/28.0 IS: FOLIC ACID PO QD LASIX PO QD PROTONIX PO QD COREG PO Q12HR PROCRIT SQ MWF HYDRALAZINE 25MG PO Q4HR PRN MED/SURG STATUS DCP: PATIENT IS FROM HOME
--- NOTE | 2018-03-16 17:25 | General Progress Note ---
Assessment/Plan Assessment/Plan Assessment and Recs: # Anemia of iron deficiency, has been started on iron --> spep is still pending to eval if any band restrictions are noted --> anemia panel has been ordered, tsh as well --> endo, cards and renal recs reviewed --> transfuse if hgb is less than 7 --> iron iv has been ordered # Thyroid nodule 2.3 x 2.2 x 1.8 cm hypodense nodule in the thyroid isthmus. --> Recommend further evaluation with thyroid ultrasound (pending) # Anasarca -- potentially proteinuria related --> further recs per neprho --> eval with cards as well if chf # CHARLIE (acute kidney injury) # Proteinuria # Glomerulonephritis # Congestive heart failure (CHF) The time of encounter does not reflect the time of the note Greatly appreciate consultation! Subjective Constitutional: Denies: no symptoms, chills, diaphoresis, fever, malaise, weakness, other HEENT: Denies: no symptoms, eye pain, blurred vision, tearing, double vision, ear pain, ear discharge, nose pain, nose congestion, throat pain, throat swelling, mouth pain, mouth swelling, other Cardiovascular: Denies: no symptoms, chest pain, edema, irregular heart rate, lightheadedness, palpitations, syncope, other Respiratory: Denies: no symptoms, cough, orthopnea, shortness of breath, SOB with excertion, SOB at rest, sputum, stridor, wheezing, other Gastrointestinal/Abdominal: Denies: no symptoms, abdomen distended, abdominal pain, black stools, tarry stools, blood in stool, constipated, diarrhea, difficulty swallowing, nausea, poor appetite, poor fluid intake, rectal bleeding , vomiting, other Genitourinary: Denies: no symptoms, burning, discharge, frequency, flank pain, hematuria, incontinence, pain, urgency, other Neurologic/Psychiatric: Denies: no symptoms, anxiety, depressed, emotional problems, headache, numbness, paresthesia, pre-existing deficit, seizure, tingling, tremors, weakness, other Endocrine: Denies: no symptoms, excessive sweating, flushing, intolerance to cold, intolerance to heat, increased hunger, increased thirst, increased urine, unexplained weight gain, unexplained weight loss, other Hematologic/Lymphatic: Denies: no symptoms, anemia, easy bleeding, easy bruising, other Allergies: Coded Allergies: No Known Allergies (Unverified , 03/10/18) Subjective 03/14: getting lasix and coreg, diuresis, not bleeding 03/15: awake and comfortable, no chest pain or SOB, no bleeding. no events 03/16: Pt is seen by bedside, awake and comfortable, ambulated in the hallway with assistance, no events. Objective Last 24 Hour Vital Signs Date Time Temp Pulse Resp B/P (MAP) Pulse Ox O2 Delivery O2 Flow Rate FiO2 03/16/18 16:00 98.7 68 20 126/70 (88) 95 03/16/18 12:07 98.8 69 20 139/81 (100) 96 03/16/18 09:22 76 139/72 03/16/18 09:00 Room Air 03/16/18 08:00 98.6 76 21 139/72 (94) 95 03/16/18 04:00 98.0 83 18 144/74 (97) 97 03/16/18 00:00 98.2 81 18 138/73 (94) 96 03/15/18 21:27 78 141/69 03/15/18 21:00 Room Air 03/15/18 20:00 98.4 78 17 141/69 (93) 96 Intake and Output 03/15/18 03/16/18 18:59 06:59 Intake Total 940 ml 1040 ml Output Total 400 ml Balance 940 ml 640 ml Intake Oral 240 ml 1040 ml Other 700 ml Output Urine Total 400 ml # Voids 4 # Bowel Movements 3 Laboratory Tests 03/16/18 05:20: White Blood Count 5.1, Red Blood Count 3.35L, Hemoglobin 8.8L, Hematocrit 28.0L , Mean Corpuscular Volume 84, Mean Corpuscular Hemoglobin 26.1L, Mean Corpuscular Hemoglobin Concent 31.3L, Red Cell Distribution Width 14.1, Platelet Count 205, Mean Platelet Volume 6.3L, Neutrophils (%) (Auto) 55.6, Lymphocytes (%) (Auto) 27.5, Monocytes (%) (Auto) 11.3H, Eosinophils (%) (Auto) 4.9H, Basophils (%) (Auto) 0.7, Sodium Level 140, Potassium Level 4.3, Chloride Level 108H, Carbon Dioxide Level 29, Anion Gap 3L, Blood Urea Nitrogen 33H, Creatinine 1.8H, Estimat Glomerular Filtration Rate , Glucose Level 94, Calcium Level 7.5L, Phosphorus Level 3.3, Magnesium Level 1.8, Total Bilirubin 0.1L, Aspartate Amino Transf (AST/SGOT) 16, Alanine Aminotransferase (ALT/SGPT) 12, Alkaline Phosphatase 65, C-Reactive Protein, Quantitative 4.1H, Pro-B-Type Natriuretic Peptide 288H, Total Protein 4.9L, Albumin 1.1L, Globulin 3.8, Albumin/Globulin Ratio 0.3L Height (Feet): 5 Height (Inches): 11.00 Weight (Pounds): 288 Objective General Appearance: no apparent distress Head: normocephalic, atraumatic Eyes: bilateral eye normal inspection, bilateral eye PERRL ENT: hearing grossly normal, normal pharynx Neck: full range of motion, supple/symm/no masses Respiratory: chest non-tender, lungs clear, normal breath sounds, no respiratory distress Cardiovascular: regular rate, rhythm, no edema, edema - BLE and BUE edema Gastrointestinal: normal bowel sounds, non tender Neurologic: alert, oriented x3, responsive Psychiatric: judgement/insight normal, mood/affect normal Skin: normal color, ++ anasarca Alexx Medina MD Mar 16, 2018 17:25
--- NOTE | 2018-03-16 19:07 | NUR ---
NURSE NOTES: Pt IV site left AC swelling and erythema noted, IV removed. Notified Dr. Conklin, left message. Endorsed to FRANKY Flores. She will get new IV site and follow up with Dr. Conklin for any new orders. Pt left in bed in stable condition, a/o x 4 in no acute distress. Skid socks on, bed in low position, call light within reach.
--- NOTE | 2018-03-16 19:07 | NUR ---
NURSE NOTES:Patient received from Aide Davis Patient in bed denies any pain at this time . no sob / no n/v noted. patient no IV access called and left message to Dr. Conklin . still awaiting to call back. call light within reach . bed in low position at all times . will continue to monitor. Addendum: 03/16/18 at 2047 by OMKAR MOCTEZUMA LVN patient refused new iv line . patient states "I don't want it." Explained the risk and benefits . still refusing . called and left message to DR. Conklin . still awaiting to call back. Addendum: 03/16/18 at 2200 by OMKAR MOCTEZUMA LVN patient LAC IV site Swelling and erythema noted left arm elevated with pillows and ice pack applied will continue to monitor patient . Addendum: 03/17/18 at 0741 by OMKAR MOCTEZUMA LVN Eileen Rubio nurse notified and aware .
[2018-03-16 20:00] VITALS: BP 140/70
[2018-03-16] MEDS: Tamsulosin 0.4mg cap ORAL SCH (20:14)
--- NOTE | 2018-03-16 22:02 | General Progress Note ---
Assessment/Plan Assessment/Plan Assessment - Iron deficiency anemia - CHF - Renal failure - Anasarca - Await transfer to [facility] Recommendations - Continue Venofer - po as tolerated - [facility], once improved Subjective Allergies: Coded Allergies: No Known Allergies (Unverified , 03/10/18) Subjective Above noted Feels OK no abdominal symptoms Objective Last 24 Hour Vital Signs Date Time Temp Pulse Resp B/P (MAP) Pulse Ox O2 Delivery O2 Flow Rate FiO2 03/16/18 21:47 Room Air 03/16/18 20:14 69 140/70 03/16/18 20:00 97.2 69 20 140/70 (93) 97 03/16/18 16:00 98.7 68 20 126/70 (88) 95 03/16/18 12:07 98.8 69 20 139/81 (100) 96 03/16/18 09:22 76 139/72 03/16/18 09:00 Room Air 03/16/18 08:00 98.6 76 21 139/72 (94) 95 03/16/18 04:00 98.0 83 18 144/74 (97) 97 03/16/18 00:00 98.2 81 18 138/73 (94) 96 Intake and Output 03/15/18 03/16/18 19:00 07:00 Intake Total 940 ml 1040 ml Output Total 400 ml Balance 940 ml 640 ml Intake Oral 240 ml 1040 ml Other 700 ml Output Urine Total 400 ml # Voids 4 # Bowel Movements 3 Laboratory Tests 03/16/18 05:20: White Blood Count 5.1, Red Blood Count 3.35L, Hemoglobin 8.8L, Hematocrit 28.0L , Mean Corpuscular Volume 84, Mean Corpuscular Hemoglobin 26.1L, Mean Corpuscular Hemoglobin Concent 31.3L, Red Cell Distribution Width 14.1, Platelet Count 205, Mean Platelet Volume 6.3L, Neutrophils (%) (Auto) 55.6, Lymphocytes (%) (Auto) 27.5, Monocytes (%) (Auto) 11.3H, Eosinophils (%) (Auto) 4.9H, Basophils (%) (Auto) 0.7, Sodium Level 140, Potassium Level 4.3, Chloride Level 108H, Carbon Dioxide Level 29, Anion Gap 3L, Blood Urea Nitrogen 33H, Creatinine 1.8H, Estimat Glomerular Filtration Rate , Glucose Level 94, Calcium Level 7.5L, Phosphorus Level 3.3, Magnesium Level 1.8, Total Bilirubin 0.1L, Aspartate Amino Transf (AST/SGOT) 16, Alanine Aminotransferase (ALT/SGPT) 12, Alkaline Phosphatase 65, C-Reactive Protein, Quantitative 4.1H, Pro-B-Type Natriuretic Peptide 288H, Total Protein 4.9L, Albumin 1.1L, Globulin 3.8, Albumin/Globulin Ratio 0.3L Height (Feet): 5 Height (Inches): 11.00 Weight (Pounds): 288 Objective WDWN NCAT supple CTA RRR Abd soft ND no edema Antoinette Calderon MD Mar 16, 2018 22:02
[2018-03-17] VITALS (8 sets, daily range): BP systolic 129–166; BP diastolic 61–79
[2018-03-17] MEDS: HydrALAZINE 25mg tab ORAL PRN ×2 (03:14→21:40)
--- NOTE | 2018-03-17 03:14 | NUR ---
NURSE NOTES: Patient @ 03:14 am as per MD B/P 166/67 mmHg elevated P69 / min, R 20/min. T98.0. Hydralazine 25 mg 1 tab po given to patient As per MD ordered. will continue to monitor patient.
--- NOTE | 2018-03-17 04:30 | NUR ---
NURSE NOTES:patient @04:30 am B/P Rechecked 146/66 mmHg P 70/min . R l8 min. T 98.0 .spo2 98 % .Call light within reach. bed in low position at all times . will continue to monitor .
[2018-03-17] MEDS: Levothyroxine 25mcg tab ORAL SCH (06:16)
--- NOTE | 2018-03-17 06:57 | General Progress Note ---
Assessment/Plan Problem List: (1) Hypothyroidism ICD Codes: E03.9 - Hypothyroidism, unspecified SNOMED: 93533847 (2) Anasarca ICD Codes: R60.1 - Generalized edema SNOMED: 174318541, 225939306 (3) Proteinuria ICD Codes: R80.9 - Proteinuria, unspecified SNOMED: 17570047, 521757165 (4) Congestive heart failure (CHF) ICD Codes: I50.9 - Heart failure, unspecified SNOMED: 63889940, 672478796 (5) Thyroid nodule ICD Codes: E04.1 - Nontoxic single thyroid nodule SNOMED: 440966739 Assessment/Plan thyroid US reviewed: - complex 2-3 cm L lobe mass (cystic - solid) - diminutive nodules on both lobes --> dominant nodule on the left lobe does not have any worrisome characteristics but has indication for FNA under guidance due to large size - I ordered it continue Levothyroxine 25 mcg daily repeat TSH, free T4 in 4 weeks Subjective Allergies: Coded Allergies: No Known Allergies (Unverified , 03/10/18) All Systems: reviewed and negative except above Subjective events noted Objective Last 24 Hour Vital Signs Date Time Temp Pulse Resp B/P (MAP) Pulse Ox O2 Delivery O2 Flow Rate FiO2 03/17/18 04:30 98.0 70 20 146/66 (92) 98 03/17/18 03:14 166/67 03/17/18 03:14 98.0 69 20 166/67 (100) 98 03/17/18 00:00 98.4 78 20 142/77 (98) 98 03/16/18 21:47 Room Air 03/16/18 20:14 69 140/70 03/16/18 20:00 97.2 69 20 140/70 (93) 97 03/16/18 16:00 98.7 68 20 126/70 (88) 95 03/16/18 12:07 98.8 69 20 139/81 (100) 96 03/16/18 09:22 76 139/72 03/16/18 09:00 Room Air 03/16/18 08:00 98.6 76 21 139/72 (94) 95 Intake and Output 03/16/18 03/17/18 18:59 06:59 Intake Total 960 ml 600 ml Output Total 350 ml 550 ml Balance 610 ml 50 ml Intake Oral 960 ml 600 ml Output Urine Total 350 ml 550 ml # Voids 2 # Bowel Movements 1 1 Height (Feet): 5 Height (Inches): 11.00 Weight (Pounds): 288 General Appearance: no apparent distress Neck: normal alignment Cardiovascular: normal rate Respiratory/Chest: decreased breath sounds Abdomen: normal bowel sounds Edema: 2+ Arm (L), 2+ Arm (R), 2+ Leg (L), 2+ Leg (R), 2+ Pedal (L), 2+ Pedal ( R), 2+ Generalized Objective Current Medications Medications (Trade) Dose Ordered Sig/Panfilo Route PRN Reason Start Time Stop Time Status Last Admin Dose Admin Acetaminophen (Tylenol) 650 mg Q6H PRN ORAL Mild Pain/Temp > 100.5 03/15/18 16:50 04/10/18 16:49 Carvedilol (Coreg) 25 mg EVERY 12 HOURS ORAL 03/15/18 21:00 04/09/18 20:59 03/16/18 20:14 Epoetin Bobby (Procrit (for non ESRD use)) 10,000 units THU-THU-THU SUBQ 03/15/18 21:00 04/14/18 20:59 03/15/18 21:51 Folic Acid (Folate) 3 mg DAILY ORAL 03/16/18 09:00 04/11/18 14:44 03/16/18 09:23 Furosemide (Lasix) 40 mg DAILY ORAL 03/16/18 09:00 04/14/18 08:59 03/16/18 09:24 Heparin Sodium (Porcine) (Heparin 5000 units/ml) 5,000 units EVERY 12 HOURS SUBQ 03/15/18 21:00 04/10/18 20:59 03/16/18 20:18 Hydralazine HCl (Apresoline) 25 mg Q4H PRN ORAL bp over 160 syst 03/15/18 16:51 04/12/18 16:50 03/17/18 03:14 Levothyroxine Sodium (Synthroid) 25 mcg DAILY@0630 ORAL 03/16/18 06:30 04/12/18 06:29 03/17/18 06:16 Ondansetron HCl (Zofran) 4 mg Q6H PRN IVP Nausea & Vomiting 03/15/18 16:51 04/10/18 16:50 Pantoprazole (Protonix) 40 mg DAILY ORAL 03/16/18 09:00 04/10/18 14:29 03/16/18 09:23 Tamsulosin HCl (Flomax) 0.4 mg BEDTIME ORAL 03/15/18 21:00 04/10/18 20:59 03/16/18 20:14 Sascha Hernandez MD Mar 17, 2018 06:57
--- NOTE | 2018-03-17 07:30 | NUR ---
HAND-OFF: Report given to ELENA Davis To follow up US BIOPSY THROID.PATIENT IN STABLE CONDITION.
--- NOTE | 2018-03-17 08:49 | Pulmonology Progress Note ---
Assessment/Plan Problems: (1) Glomerulonephritis Assessment & Plan: S/P biopsy in [place] @ the [facility] - results? (2) Anasarca Assessment & Plan: Improved with diuresis (3) Proteinuria (4) CHARLIE (acute kidney injury) (5) Anemia Assessment & Plan: MOJGAN, needs OP endoscopy (6) Thyroid nodule Assessment & Plan: Dominant, heterogeneous complex nodule in the left thyroid lobe measuring 2 x 3 cm (7) Iron deficiency anemia Assessment/Plan -Monitor volumes and renal function, now on PO Lasix -BP control -F/U cards and renal recs -F/U studies, need to get renal biopsy results from [place] -F/U heme recs, continue EPO -GI eval appreciated, needs outpatient ENDOSCOPY -ENDO recs: continue synthroid, repeat TSH as OP, thyroid FNA -Observe off Abx per ID, diphteroids in urine likely contaminant -Cardiac diet -[facility], Per CM not accepted @ SN[facility], d/w son Robert who is unable to care for patient. Will D/W CM Re: further plan DVT Prophylaxis: HEP SQ Code status: full Hospital Classification declaration: Based on this initial evaluation, and depending on the patient's clinical course, I anticipate that this patient will require hospitalization for 1-2days. Disposition: Once the patient is stable to leave the hospital, I anticipate the patient will likely be discharged home or transferred to the [facility] Subjective Allergies: Coded Allergies: No Known Allergies (Unverified , 03/10/18) Subjective AFVSS on RA Feels better Denies sig SOB no cough no wheezing no CP no F/C Thyroid Bx ordered by endo Objective Last 24 Hour Vital Signs Date Time Temp Pulse Resp B/P (MAP) Pulse Ox O2 Delivery O2 Flow Rate FiO2 03/17/18 08:00 98.1 90 19 138/79 (98) 99 03/17/18 04:30 98.0 70 20 146/66 (92) 98 03/17/18 03:14 166/67 03/17/18 03:14 98.0 69 20 166/67 (100) 98 03/17/18 00:00 98.4 78 20 142/77 (98) 98 03/16/18 21:47 Room Air 03/16/18 20:14 69 140/70 03/16/18 20:00 97.2 69 20 140/70 (93) 97 03/16/18 16:00 98.7 68 20 126/70 (88) 95 03/16/18 12:07 98.8 69 20 139/81 (100) 96 03/16/18 09:22 76 139/72 03/16/18 09:00 Room Air Intake and Output 03/16/18 03/17/18 18:59 06:59 Intake Total 960 ml 600 ml Output Total 350 ml 550 ml Balance 610 ml 50 ml Intake Oral 960 ml 600 ml Output Urine Total 350 ml 550 ml # Voids 4 # Bowel Movements 1 1 General Appearance: WD/WN, no acute distress HEENT: normocephalic, atraumatic, anicteric, mucous membranes moist Respiratory/Chest: chest wall non-tender, lungs clear, normal breath sounds, no respiratory distress, no accessory muscle use Cardiovascular: normal peripheral pulses, normal rate, regular rhythm Abdomen: normal bowel sounds, soft, non tender, no organomegaly, non distended Extremities: no cyanosis, no clubbing, other - trace BAKARI Current Medications Medications (Trade) Dose Ordered Sig/Panfilo Route PRN Reason Start Time Stop Time Status Last Admin Dose Admin Acetaminophen (Tylenol) 650 mg Q6H PRN ORAL Mild Pain/Temp > 100.5 03/15/18 16:50 04/10/18 16:49 Carvedilol (Coreg) 25 mg EVERY 12 HOURS ORAL 03/15/18 21:00 04/09/18 20:59 03/16/18 20:14 Epoetin Bobby (Procrit (for non ESRD use)) 10,000 units THU-THU-THU SUBQ 03/15/18 21:00 04/14/18 20:59 03/15/18 21:51 Folic Acid (Folate) 3 mg DAILY ORAL 03/16/18 09:00 04/11/18 14:44 03/16/18 09:23 Furosemide (Lasix) 40 mg DAILY ORAL 03/16/18 09:00 04/14/18 08:59 03/16/18 09:24 Heparin Sodium (Porcine) (Heparin 5000 units/ml) 5,000 units EVERY 12 HOURS SUBQ 03/15/18 21:00 04/10/18 20:59 03/16/18 20:18 Hydralazine HCl (Apresoline) 25 mg Q4H PRN ORAL bp over 160 syst 03/15/18 16:51 04/12/18 16:50 03/17/18 03:14 Levothyroxine Sodium (Synthroid) 25 mcg DAILY@0630 ORAL 03/16/18 06:30 04/12/18 06:29 03/17/18 06:16 Ondansetron HCl (Zofran) 4 mg Q6H PRN IVP Nausea & Vomiting 03/15/18 16:51 04/10/18 16:50 Pantoprazole (Protonix) 40 mg DAILY ORAL 03/16/18 09:00 04/10/18 14:29 03/16/18 09:23 Tamsulosin HCl (Flomax) 0.4 mg BEDTIME ORAL 03/15/18 21:00 04/10/18 20:59 03/16/18 20:14 Rambo Conklin MD Mar 17, 2018 08:49
[2018-03-17] MEDS: Furosemide 40mg tab ORAL SCH (08:51)
[2018-03-17] MEDS: Carvedilol 25mg Tab ORAL SCH ×2 (08:51→20:34)
[2018-03-17] MEDS: Heparin 5000 units/ml inj SUBQ SCH ×2 (08:56→20:38)
--- NOTE | 2018-03-17 13:55 | Cardiac Electrophysiology PN ---
Assessment/Plan Assessment/Plan 1. Severe bilateral lower extremity edema. Echocardiogram EF 60%. Also has renal failure Cr 1.8. On Lasix 40 mg po daily 2. Hypertension. Continue Lasix and Coreg 25 mg b.i.d. Avoid BOBBY inhibitor and angiotensin-receptor blockers in view of his renal failure at this point. 3. Morbid obesity. 4. Renal failure Cr 1.8 DC pending Subjective Subjective No CP or SOB. Diuresing well.Refused FNA of the thyroid Objective Last 24 Hour Vital Signs Date Time Temp Pulse Resp B/P (MAP) Pulse Ox O2 Delivery O2 Flow Rate FiO2 03/17/18 09:00 Room Air 03/17/18 08:51 90 138/79 03/17/18 08:00 98.1 90 19 138/79 (98) 99 03/17/18 04:30 98.0 70 20 146/66 (92) 98 03/17/18 03:14 166/67 03/17/18 03:14 98.0 69 20 166/67 (100) 98 03/17/18 00:00 98.4 78 20 142/77 (98) 98 03/16/18 21:47 Room Air 03/16/18 20:14 69 140/70 03/16/18 20:00 97.2 69 20 140/70 (93) 97 03/16/18 16:00 98.7 68 20 126/70 (88) 95 Intake and Output 03/16/18 03/17/18 19:00 07:00 Intake Total 960 ml 600 ml Output Total 350 ml 550 ml Balance 610 ml 50 ml Intake Oral 960 ml 600 ml Output Urine Total 350 ml 550 ml # Voids 4 # Bowel Movements 1 1 Objective HEAD AND NECK: Mild JVD. LUNGS: Decreased breath sounds. CARDIOVASCULAR: Regular S1 and S2 with no gallop. ABDOMEN: Soft. EXTREMITIES: 2+ pitting edema. Jose Chairez MD Mar 17, 2018 13:55
--- NOTE | 2018-03-17 14:02 | Infectious Diseases Prog Note ---
Assessment/Plan Assessment/Plan ASSESSMENT AND PLAN: 1. + ua, rule out uti, no urinary symptoms, no fevers, no leukocytosis - urine culture with diphtheroids which is likely contaminant - no objective indication for uti or abx tx - continue to monitor clinically - monitor labs - stable ID standpoint - d/w patient 2. Acute kidney injury, elevated creatinine, chronic renal failure. 3. Hypernatremia. 4. Anemia. 5. Hypertension. 6. Blood pressure treatment per primary and consultants. 7. CHF. 8. Edema. 9. Anasarca. 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 11. Past medical history noted. 12. No known drug allergies. 13. Social history negative. 14. Family history noncontributory. 15. MAR was noted. 16. Case discussed with RN. 17. Continue treatment per primary consultants. Subjective Constitutional: Denies: fever HEENT: Denies: congestion Respiratory: Denies: shortness of breath Cardiovascular: Denies: chest pain Gastrointestinal/Abdominal: Denies: nausea, vomiting, diarrhea Genitourinary: Denies: dysuria Neurologic: Denies: headache Psychiatric: Denies: depression Hematologic: Denies: bleeding Musculoskeletal: Denies: pain Allergies: Coded Allergies: No Known Allergies (Unverified , 03/10/18) Objective Vital Signs Last 24 Hour Vital Signs Date Time Temp Pulse Resp B/P (MAP) Pulse Ox O2 Delivery O2 Flow Rate FiO2 03/17/18 09:00 Room Air 03/17/18 08:51 90 138/79 03/17/18 08:00 98.1 90 19 138/79 (98) 99 03/17/18 04:30 98.0 70 20 146/66 (92) 98 03/17/18 03:14 166/67 03/17/18 03:14 98.0 69 20 166/67 (100) 98 03/17/18 00:00 98.4 78 20 142/77 (98) 98 03/16/18 21:47 Room Air 03/16/18 20:14 69 140/70 03/16/18 20:00 97.2 69 20 140/70 (93) 97 03/16/18 16:00 98.7 68 20 126/70 (88) 95 Height (Feet): 5 Height (Inches): 11.00 Weight (Pounds): 287 General Appearance: no acute distress HEENT: normocephalic, atraumatic, anicteric, mucous membranes moist Respiratory/Chest: lungs clear, normal breath sounds, no respiratory distress, no accessory muscle use Cardiovascular: normal rate, regular rhythm, no JVD Abdomen: normal bowel sounds, soft, non tender, no organomegaly, non distended Genitourinary: other - no jiménez Extremities: no cyanosis Skin: no rash Neurologic/Psychiatric: 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 There is bilateral interstitial edema. The left hemidiaphragm is obscured, pleural effusion possible Impression: Cardiomegaly with interstitial edema Possible left pleural effusion CT abdomen and pelvis: IMPRESSION: 1. 6 mm nonobstructive stone in the left lower renal pole. 2. Simple-appearing renal cortical cysts, including a 5 cm cyst in the left lower pole and. 3.6 cm cyst in the right mid kidney. 3. Mild sigmoid colonic diverticulosis without evidence of acute inflammation. Microbiology Date/Time Source Procedure Growth Status 03/10/18 14:20 Urine,Clean Catch Urine Culture - Final Diphtheroids Complete Labs Test 03/16/18 05:20 White Blood Count 5.1 K/UL (4.8-10.8) Red Blood Count 3.35 M/UL (4.70-6.10) Hemoglobin 8.8 G/DL (14.2-18.0) Hematocrit 28.0 % (42.0-52.0) Mean Corpuscular Volume 84 FL (80-99) Mean Corpuscular Hemoglobin 26.1 PG (27.0-31.0) Mean Corpuscular Hemoglobin Concent 31.3 G/DL (32.0-36.0) Red Cell Distribution Width 14.1 % (11.6-14.8) Platelet Count 205 K/UL (150-450) Mean Platelet Volume 6.3 FL (6.5-10.1) Neutrophils (%) (Auto) 55.6 % (45.0-75.0) Lymphocytes (%) (Auto) 27.5 % (20.0-45.0) Monocytes (%) (Auto) 11.3 % (1.0-10.0) Eosinophils (%) (Auto) 4.9 % (0.0-3.0) Basophils (%) (Auto) 0.7 % (0.0-2.0) Sodium Level 140 MMOL/L (136-145) Potassium Level 4.3 MMOL/L (3.5-5.1) Chloride Level 108 MMOL/L (98-107) Carbon Dioxide Level 29 MMOL/L (21-32) Anion Gap 3 mmol/L (5-15) Blood Urea Nitrogen 33 mg/dL (7-18) Creatinine 1.8 MG/DL (0.55-1.30) Estimat Glomerular Filtration Rate mL/min (>60) Glucose Level 94 MG/DL (74-106) Calcium Level 7.5 MG/DL (8.5-10.1) Phosphorus Level 3.3 MG/DL (2.5-4.9) Magnesium Level 1.8 MG/DL (1.8-2.4) Total Bilirubin 0.1 MG/DL (0.2-1.0) Aspartate Amino Transf (AST/SGOT) 16 U/L (15-37) Alanine Aminotransferase (ALT/SGPT) 12 U/L (12-78) Alkaline Phosphatase 65 U/L (46-116) C-Reactive Protein, Quantitative 4.1 mg/dL (0.00-0.90) Pro-B-Type Natriuretic Peptide 288 pg/mL (0-125) Total Protein 4.9 G/DL (6.4-8.2) Albumin 1.1 G/DL (3.4-5.0) Globulin 3.8 g/dL Albumin/Globulin Ratio 0.3 (1.0-2.7) Current Medications Medications (Trade) Dose Ordered Sig/Panfilo Route PRN Reason Start Time Stop Time Status Last Admin Dose Admin Acetaminophen (Tylenol) 650 mg Q6H PRN ORAL Mild Pain/Temp > 100.5 03/15/18 16:50 04/10/18 16:49 Carvedilol (Coreg) 25 mg EVERY 12 HOURS ORAL 03/15/18 21:00 04/09/18 20:59 03/17/18 08:51 Epoetin Bobby (Procrit (for non ESRD use)) 10,000 units THU-THU-THU SUBQ 03/15/18 21:00 04/14/18 20:59 03/15/18 21:51 Folic Acid (Folate) 3 mg DAILY ORAL 03/16/18 09:00 04/11/18 14:44 03/17/18 08:51 Furosemide (Lasix) 40 mg DAILY ORAL 03/16/18 09:00 04/14/18 08:59 03/17/18 08:51 Heparin Sodium (Porcine) (Heparin 5000 units/ml) 5,000 units EVERY 12 HOURS SUBQ 03/15/18 21:00 04/10/18 20:59 03/17/18 08:56 Hydralazine HCl (Apresoline) 25 mg Q4H PRN ORAL bp over 160 syst 03/15/18 16:51 04/12/18 16:50 03/17/18 03:14 Levothyroxine Sodium (Synthroid) 25 mcg DAILY@0630 ORAL 03/16/18 06:30 04/12/18 06:29 03/17/18 06:16 Ondansetron HCl (Zofran) 4 mg Q6H PRN IVP Nausea & Vomiting 03/15/18 16:51 04/10/18 16:50 Pantoprazole (Protonix) 40 mg DAILY ORAL 03/16/18 09:00 04/10/18 14:29 03/17/18 08:51 Tamsulosin HCl (Flomax) 0.4 mg BEDTIME ORAL 03/15/18 21:00 04/10/18 20:59 03/16/18 20:14 Fiorella Mclaughlin MD Mar 17, 2018 14:02
--- NOTE | 2018-03-17 14:26 | Nephrology Progress Note ---
Assessment/Plan Problem List: (1) CHARLIE (acute kidney injury) (2) Proteinuria (3) Congestive heart failure (CHF) (4) Anasarca (5) Nephrotic syndrome Assessment Anemia, Proteinuria, HypoAlbuminemia, Renal Failure ? Diabetic ? Amyloidosis HTN ? CHF Plan Iron IV Mag EPO 24 H urine protein close to 8 grams Protein SPEP UPEP HgbA1c : 6.2 BP control, up on Coreg 2D echo noted lasix to po per orders Kidney Bx as OP ? Subjective ROS Limited/Unobtainable: No Objective Objective Last 24 Hour Vital Signs Date Time Temp Pulse Resp B/P (MAP) Pulse Ox O2 Delivery O2 Flow Rate FiO2 03/17/18 12:00 98.1 67 20 129/61 (83) 99 03/17/18 09:00 Room Air 03/17/18 08:51 90 138/79 03/17/18 08:00 98.1 90 19 138/79 (98) 99 03/17/18 04:30 98.0 70 20 146/66 (92) 98 03/17/18 03:14 166/67 03/17/18 03:14 98.0 69 20 166/67 (100) 98 03/17/18 00:00 98.4 78 20 142/77 (98) 98 03/16/18 21:47 Room Air 03/16/18 20:14 69 140/70 03/16/18 20:00 97.2 69 20 140/70 (93) 97 03/16/18 16:00 98.7 68 20 126/70 (88) 95 Intake and Output 03/16/18 03/17/18 19:00 07:00 Intake Total 960 ml 600 ml Output Total 350 ml 550 ml Balance 610 ml 50 ml Intake Oral 960 ml 600 ml Output Urine Total 350 ml 550 ml # Voids 4 # Bowel Movements 1 1 Height (Feet): 5 Height (Inches): 11.00 Weight (Pounds): 287 General Appearance: no apparent distress Cardiovascular: normal rate Respiratory/Chest: decreased breath sounds Abdomen: distended Objective no change Arcadio Guevara MD Mar 17, 2018 14:26
--- NOTE | 2018-03-17 17:02 | General Progress Note ---
Assessment/Plan Assessment/Plan Assessment and Recs: # Anemia of iron deficiency, has been started on iron --> spep is still pending to eval if any band restrictions are noted --> anemia panel has been ordered, tsh as well --> endo, cards and renal recs reviewed --> transfuse if hgb is less than 7 --> iron iv has been ordered # Thyroid nodule 2.3 x 2.2 x 1.8 cm hypodense nodule in the thyroid isthmus. --> Recommend further evaluation with thyroid ultrasound (pending) # Anasarca -- potentially proteinuria related --> further recs per neprho --> eval with cards as well if chf # CHARLIE (acute kidney injury) # Proteinuria # Glomerulonephritis # Congestive heart failure (CHF) The time of encounter does not reflect the time of the note Greatly appreciate consultation! Subjective Constitutional: Denies: no symptoms, chills, diaphoresis, fever, malaise, weakness, other HEENT: Denies: no symptoms, eye pain, blurred vision, tearing, double vision, ear pain, ear discharge, nose pain, nose congestion, throat pain, throat swelling, mouth pain, mouth swelling, other Cardiovascular: Denies: no symptoms, chest pain, edema, irregular heart rate, lightheadedness, palpitations, syncope, other Respiratory: Denies: no symptoms, cough, orthopnea, shortness of breath, SOB with excertion, SOB at rest, sputum, stridor, wheezing, other Gastrointestinal/Abdominal: Denies: no symptoms, abdomen distended, abdominal pain, black stools, tarry stools, blood in stool, constipated, diarrhea, difficulty swallowing, nausea, poor appetite, poor fluid intake, rectal bleeding , vomiting, other Genitourinary: Denies: no symptoms, burning, discharge, frequency, flank pain, hematuria, incontinence, pain, urgency, other Neurologic/Psychiatric: Denies: no symptoms, anxiety, depressed, emotional problems, headache, numbness, paresthesia, pre-existing deficit, seizure, tingling, tremors, weakness, other Endocrine: Denies: no symptoms, excessive sweating, flushing, intolerance to cold, intolerance to heat, increased hunger, increased thirst, increased urine, unexplained weight gain, unexplained weight loss, other Hematologic/Lymphatic: Denies: no symptoms, anemia, easy bleeding, easy bruising, other Allergies: Coded Allergies: No Known Allergies (Unverified , 03/10/18) Subjective 03/14: getting lasix and coreg, diuresis, not bleeding 03/15: awake and comfortable, no chest pain or SOB, no bleeding. no events 03/16: Pt is seen by bedside, awake and comfortable, ambulated in the hallway with assistance, no events. 03/17: Pt is awake and comfortable, denies fevers or chills, Refused FNA of the thyroid Objective Last 24 Hour Vital Signs Date Time Temp Pulse Resp B/P (MAP) Pulse Ox O2 Delivery O2 Flow Rate FiO2 03/17/18 16:00 98.3 71 19 134/61 (85) 98 03/17/18 12:00 98.1 67 20 129/61 (83) 99 03/17/18 09:00 Room Air 03/17/18 08:51 90 138/79 03/17/18 08:00 98.1 90 19 138/79 (98) 99 03/17/18 04:30 98.0 70 20 146/66 (92) 98 03/17/18 03:14 166/67 03/17/18 03:14 98.0 69 20 166/67 (100) 98 03/17/18 00:00 98.4 78 20 142/77 (98) 98 03/16/18 21:47 Room Air 03/16/18 20:14 69 140/70 03/16/18 20:00 97.2 69 20 140/70 (93) 97 Intake and Output 03/16/18 03/17/18 19:00 07:00 Intake Total 960 ml 600 ml Output Total 350 ml 550 ml Balance 610 ml 50 ml Intake Oral 960 ml 600 ml Output Urine Total 350 ml 550 ml # Voids 4 # Bowel Movements 1 1 Height (Feet): 5 Height (Inches): 11.00 Weight (Pounds): 287 Objective General Appearance: no apparent distress Head: normocephalic, atraumatic Eyes: bilateral eye normal inspection, bilateral eye PERRL ENT: hearing grossly normal, normal pharynx Neck: full range of motion, supple/symm/no masses Respiratory: chest non-tender, lungs clear, normal breath sounds, no respiratory distress Cardiovascular: regular rate, rhythm, no edema, edema - BLE and BUE edema Gastrointestinal: normal bowel sounds, non tender Neurologic: alert, oriented x3, responsive Psychiatric: judgement/insight normal, mood/affect normal Skin: normal color, ++ anasarca Alexx Medina MD Mar 17, 2018 17:02
--- NOTE | 2018-03-17 17:19 | NUR ---
SE MANAGEMENT: REVIEW SI: RENAL FAILURE T 98.1 HR 67 RR 20 BP 146/66 SAT 98% ROOM AIR IS: FOLIC ACID PO QD LASIX PO QD PROTONIX PO QD COREG PO Q12HR PROCRIT SQ MWF HYDRALAZINE 25MG PO Q4HR PRN MED/SURG STATUS DCP: PATIENT IS FROM HOME
--- NOTE | 2018-03-17 19:35 | NUR ---
HAND-OFF: Report given to Aroldo WILKINS.
--- NOTE | 2018-03-17 19:45 | NUR ---
NURSE NOTES: Received pt from FRANKY Kate and rounds done. Received pt lying in bed, A&OX4, denies pain, no distress noted. Bed in low position and locked, side rails up x 2, call light within reach. Will continue to monitor.
--- NOTE | 2018-03-17 20:30 | NUR ---
NURSE NOTES: B/P 162/76, HR 68 pt asymptomatic, denies any pain, no distress noted. Will administered schedule Hydralazine medication. Will continue to monitor.
[2018-03-17] MEDS: Tamsulosin 0.4mg cap ORAL SCH (20:34)
[2018-03-17] MEDS: Epogen (for non ESRD use) SUBQ SCH (20:35)
--- NOTE | 2018-03-17 21:26 | NUR ---
NURSE NOTES: Re-check B/P 169/75. HR 69 pt A&OX4, denies any pain, no SOB, asymptomatic, no distress noted. Will continue to monitor.
--- NOTE | 2018-03-17 23:00 | NUR ---
NURSE NOTES: Re-check B/P 159/66, HR 67. Pt asleep at this time, denies pain, no distress noted. Will continue to monitor.
[2018-03-18] VITALS (9 sets, daily range): BP systolic 136–183; BP diastolic 59–79
[2018-03-18] MEDS: HydrALAZINE 25mg tab ORAL PRN ×2 (04:30→08:37)
--- NOTE | 2018-03-18 04:30 | NUR ---
NURSE NOTES: B/P 183/64, HR 68. Pt denies pain, no SOB. No distress noted. Hydralazine 25mg PO given. Will continue to monitor.
[2018-03-18] MEDS: Levothyroxine 25mcg tab ORAL SCH (05:38)
--- NOTE | 2018-03-18 05:45 | NUR ---
NURSE NOTES: Re-check B/P 179/65, HR 71. Pt denies pain, no SOB, no distress noted. Will continue to monitor.
--- NOTE | 2018-03-18 06:44 | NUR ---
NURSE NOTES: Re-check B/P 151/65, HR 69. Pt asymptomatic, pt denies any pain, no distress noted. Will endorsed to next nurse.
--- NOTE | 2018-03-18 07:24 | NUR ---
HAND-OFF: Report given to FRANKY Benjamin. Pt in stable condition.
--- NOTE | 2018-03-18 07:48 | NUR ---
Received pt from FRANKY ZARATE. Pt is alert and orient x4. No SOB or acute respiratory distress noted. pt has no iv access. Dr diamond is aware. all needs attended, bed is locked and is in the lowest position. call light within easy reach. will continue to monitor.
[2018-03-18] MEDS: Carvedilol 25mg Tab ORAL SCH ×2 (08:37→20:24)
[2018-03-18] MEDS: Furosemide 40mg tab ORAL SCH (08:38)
[2018-03-18] MEDS: Heparin 5000 units/ml inj SUBQ SCH ×2 (08:42→20:28)
--- NOTE | 2018-03-18 12:27 | NUR ---
Social Service Note Dr. Sierra spoke with patient's son Robert who has decided to cook pickled meat patient on Thursday at 9am and assist in transporting patient back to [place]. SW discussed with charge nurse, who will request images to be placed on CD. Medical records also will be provided to son as he is anticipated to [facility] [place] upon their arrival. Will monitor and be available as needed.
--- NOTE | 2018-03-18 13:16 | General Progress Note ---
Assessment/Plan Assessment/Plan Assessment and Recs: # Anemia of iron deficiency, has been started on iron --> spep is still pending to eval if any band restrictions are noted --> anemia panel has been ordered, tsh as well --> endo, cards and renal recs reviewed --> transfuse if hgb is less than 7 --> iron iv has been ordered # Thyroid nodule 2.3 x 2.2 x 1.8 cm hypodense nodule in the thyroid isthmus. --> On us shows a dominant, heterogeneous complex nodule in the left thyroid lobe measuring 2 x 3 cm. --> Consider FNA and/or evaluation with I-123 sca) # Anasarca -- potentially proteinuria related --> further recs per neprho --> eval with cards as well if chf # CHARLIE (acute kidney injury) # Proteinuria potentially consider a kidney bx --> appreciate renal recs # Glomerulonephritis # Congestive heart failure (CHF) The time of encounter does not reflect the time of the note Greatly appreciate consultation! Subjective Constitutional: Denies: no symptoms, chills, diaphoresis, fever, malaise, weakness, other HEENT: Denies: no symptoms, eye pain, blurred vision, tearing, double vision, ear pain, ear discharge, nose pain, nose congestion, throat pain, throat swelling, mouth pain, mouth swelling, other Cardiovascular: Denies: no symptoms, chest pain, edema, irregular heart rate, lightheadedness, palpitations, syncope, other Respiratory: Denies: no symptoms, cough, orthopnea, shortness of breath, SOB with excertion, SOB at rest, sputum, stridor, wheezing, other Gastrointestinal/Abdominal: Denies: no symptoms, abdomen distended, abdominal pain, black stools, tarry stools, blood in stool, constipated, diarrhea, difficulty swallowing, nausea, poor appetite, poor fluid intake, rectal bleeding , vomiting, other Genitourinary: Denies: no symptoms, burning, discharge, frequency, flank pain, hematuria, incontinence, pain, urgency, other Neurologic/Psychiatric: Denies: no symptoms, anxiety, depressed, emotional problems, headache, numbness, paresthesia, pre-existing deficit, seizure, tingling, tremors, weakness, other Allergies: Coded Allergies: No Known Allergies (Unverified , 03/10/18) Subjective 03/14: getting lasix and coreg, diuresis, not bleeding 03/15: awake and comfortable, no chest pain or SOB, no bleeding. no events 03/16: Pt is seen by bedside, awake and comfortable, ambulated in the hallway with assistance, no events. 03/17: Pt is awake and comfortable, denies fevers or chills, Refused FNA of the thyroid 03/18: bp is slightly high and dc as early as thursday, appreciate pcp recs Objective Last 24 Hour Vital Signs Date Time Temp Pulse Resp B/P (MAP) Pulse Ox O2 Delivery O2 Flow Rate FiO2 03/18/18 11:48 97.5 68 19 154/64 (94) 93 03/18/18 10:00 68 160/79 (106) 03/18/18 09:00 Room Air 03/18/18 08:37 176/78 03/18/18 08:37 72 176/78 03/18/18 08:00 98.0 72 20 176/78 (110) 94 03/18/18 06:43 69 151/65 (93) 03/18/18 05:45 71 179/65 (103) 03/18/18 04:30 183/64 03/18/18 04:00 98.8 68 18 183/64 (103) 96 03/18/18 00:00 98.8 65 19 155/69 (97) 97 03/17/18 23:00 67 159/66 (97) 03/17/18 21:40 169/75 03/17/18 21:00 Room Air 03/17/18 20:34 68 162/76 03/17/18 20:00 97.7 68 20 162/76 (104) 97 03/17/18 16:00 98.3 71 19 134/61 (85) 98 Intake and Output 03/17/18 03/18/18 18:59 06:59 Intake Total 300 ml 480 ml Output Total 300 ml 375 ml Balance 0 ml 105 ml Intake Oral 300 ml 480 ml Output Urine Total 300 ml 375 ml # Voids 3 2 # Bowel Movements 1 1 Height (Feet): 5 Height (Inches): 11.00 Weight (Pounds): 287 Objective General: no apparent distress Head: normocephalic, atraumatic Eyes: bilateral eye normal inspection, bilateral eye PERRL ENT: hearing grossly normal, normal pharynx Neck: full range of motion, supple/symm/no masses Respiratory: chest non-tender, lungs clear, normal breath sounds, no respiratory distress Cardiovascular: regular rate, rhythm, no edema, edema - BLE and BUE edema Gastrointestinal: normal bowel sounds, non tender Neurologic: alert, oriented x3, responsive Psychiatric: judgement/insight normal, mood/affect normal Skin: normal color, ++ anasarca Alexx Medina MD Mar 18, 2018 13:16
--- NOTE | 2018-03-18 14:41 | Pulmonology Progress Note ---
Assessment/Plan Problems: (1) Glomerulonephritis Assessment & Plan: S/P biopsy in [place] @ the [facility] - results? (2) Anasarca Assessment & Plan: Improved with diuresis (3) Proteinuria (4) CHARLIE (acute kidney injury) (5) Anemia Assessment & Plan: MOJGAN, needs OP endoscopy (6) Thyroid nodule Assessment & Plan: Dominant, heterogeneous complex nodule in the left thyroid lobe measuring 2 x 3 cm (7) Iron deficiency anemia Assessment/Plan -Monitor volumes and renal function, now on PO Lasix -BP control -F/U cards and renal recs -F/U studies, had renal Bx in [place] -F/U heme recs, continue EPO -GI eval appreciated, needs outpatient ENDOSCOPY -ENDO recs: continue synthroid, repeat TSH as OP, declines thyroid FNA - states will do in [place] -Observe off Abx per ID, diphteroids in urine likely contaminant -Cardiac diet -Not accepted @ [place], Per CM not accepted @ SNF, d/w son Robert who is unable to care for patient but will pick him up on thursday and take to [place] DVT Prophylaxis: HEP SQ Code status: full Hospital Classification declaration: Based on this initial evaluation, and depending on the patient's clinical course, I anticipate that this patient will require hospitalization for 1-2days. Disposition: Once the patient is stable to leave the hospital, I anticipate the patient will likely be discharged home or transferred to the [place] Subjective Allergies: Coded Allergies: No Known Allergies (Unverified , 03/10/18) Subjective AFVSS on RA Feels better Denies sig SOB no cough no wheezing no CP no F/C Refused thyroid Bx Son plans to pick patient up on thursday and take to [place] Objective Last 24 Hour Vital Signs Date Time Temp Pulse Resp B/P (MAP) Pulse Ox O2 Delivery O2 Flow Rate FiO2 03/18/18 11:48 97.5 68 19 154/64 (94) 93 03/18/18 10:00 68 160/79 (106) 03/18/18 09:00 Room Air 03/18/18 08:37 176/78 03/18/18 08:37 72 176/78 03/18/18 08:00 98.0 72 20 176/78 (110) 94 03/18/18 06:43 69 151/65 (93) 03/18/18 05:45 71 179/65 (103) 03/18/18 04:30 183/64 03/18/18 04:00 98.8 68 18 183/64 (103) 96 03/18/18 00:00 98.8 65 19 155/69 (97) 97 03/17/18 23:00 67 159/66 (97) 03/17/18 21:40 169/75 03/17/18 21:00 Room Air 03/17/18 20:34 68 162/76 03/17/18 20:00 97.7 68 20 162/76 (104) 97 03/17/18 16:00 98.3 71 19 134/61 (85) 98 Intake and Output 03/17/18 03/18/18 19:00 07:00 Intake Total 300 ml 480 ml Output Total 300 ml 375 ml Balance 0 ml 105 ml Intake Oral 300 ml 480 ml Output Urine Total 300 ml 375 ml # Voids 3 2 # Bowel Movements 1 1 General Appearance: WD/WN, no acute distress HEENT: normocephalic, atraumatic, anicteric, mucous membranes moist Respiratory/Chest: chest wall non-tender, lungs clear, normal breath sounds, no respiratory distress, no accessory muscle use Cardiovascular: normal peripheral pulses, normal rate, regular rhythm Abdomen: normal bowel sounds, soft, non tender, no organomegaly, non distended , no mass Extremities: no cyanosis, no clubbing, other - trace edema Current Medications Medications (Trade) Dose Ordered Sig/Panfilo Route PRN Reason Start Time Stop Time Status Last Admin Dose Admin Acetaminophen (Tylenol) 650 mg Q6H PRN ORAL Mild Pain/Temp > 100.5 03/15/18 16:50 04/10/18 16:49 Carvedilol (Coreg) 25 mg EVERY 12 HOURS ORAL 03/15/18 21:00 04/09/18 20:59 03/18/18 08:37 Epoetin Bobby (Procrit (for non ESRD use)) 10,000 units MON-WED-THU SUBQ 03/15/18 21:00 04/14/18 20:59 03/17/18 20:35 Folic Acid (Folate) 3 mg DAILY ORAL 03/16/18 09:00 04/11/18 14:44 03/18/18 08:37 Furosemide (Lasix) 40 mg DAILY ORAL 03/16/18 09:00 04/14/18 08:59 03/18/18 08:38 Heparin Sodium (Porcine) (Heparin 5000 units/ml) 5,000 units EVERY 12 HOURS SUBQ 03/15/18 21:00 04/10/18 20:59 03/18/18 08:42 Hydralazine HCl (Apresoline) 25 mg Q4H PRN ORAL bp over 160 syst 03/15/18 16:51 04/12/18 16:50 03/18/18 08:37 Levothyroxine Sodium (Synthroid) 25 mcg DAILY@0630 ORAL 03/16/18 06:30 04/12/18 06:29 03/18/18 05:38 Ondansetron HCl (Zofran) 4 mg Q6H PRN IVP Nausea & Vomiting 03/15/18 16:51 04/10/18 16:50 Pantoprazole (Protonix) 40 mg DAILY ORAL 03/16/18 09:00 04/10/18 14:29 03/18/18 08:38 Tamsulosin HCl (Flomax) 0.4 mg BEDTIME ORAL 03/15/18 21:00 04/10/18 20:59 03/17/18 20:34 Rambo Conklin MD Mar 18, 2018 14:41
--- NOTE | 2018-03-18 15:07 | NUR ---
NURSE NOTES: Dr Rodarte visited pt and he is aware about HTN. all orders will carry out. will continue to monitor.
--- NOTE | 2018-03-18 16:24 | Nephrology Progress Note ---
Assessment/Plan Problem List: (1) CHARLIE (acute kidney injury) (2) Proteinuria (3) Congestive heart failure (CHF) (4) Anasarca (5) Nephrotic syndrome Assessment Anemia, Proteinuria, HypoAlbuminemia, Renal Failure ? Diabetic ? Amyloidosis HTN ? CHF Plan add Norvasc Thiamine Iron IV Mag EPO 24 H urine protein close to 8 grams Protein SPEP UPEP HgbA1c : 6.2 BP control, up on Coreg 2D echo noted lasix to po per orders Kidney Bx as OP ? Subjective ROS Limited/Unobtainable: No Constitutional: Reports: malaise Objective Objective Last 24 Hour Vital Signs Date Time Temp Pulse Resp B/P (MAP) Pulse Ox O2 Delivery O2 Flow Rate FiO2 03/18/18 11:48 97.5 68 19 154/64 (94) 93 03/18/18 10:00 68 160/79 (106) 03/18/18 09:00 Room Air 03/18/18 08:37 176/78 03/18/18 08:37 72 176/78 03/18/18 08:00 98.0 72 20 176/78 (110) 94 03/18/18 06:43 69 151/65 (93) 03/18/18 05:45 71 179/65 (103) 03/18/18 04:30 183/64 03/18/18 04:00 98.8 68 18 183/64 (103) 96 03/18/18 00:00 98.8 65 19 155/69 (97) 97 03/17/18 23:00 67 159/66 (97) 03/17/18 21:40 169/75 03/17/18 21:00 Room Air 03/17/18 20:34 68 162/76 03/17/18 20:00 97.7 68 20 162/76 (104) 97 Intake and Output 03/17/18 03/18/18 19:00 07:00 Intake Total 300 ml 480 ml Output Total 300 ml 375 ml Balance 0 ml 105 ml Intake Oral 300 ml 480 ml Output Urine Total 300 ml 375 ml # Voids 3 2 # Bowel Movements 1 1 Height (Feet): 5 Height (Inches): 11.00 Weight (Pounds): 287 General Appearance: no apparent distress Respiratory/Chest: decreased breath sounds Abdomen: distended Objective no change Arcadio Guevara MD Mar 18, 2018 16:24
--- NOTE | 2018-03-18 16:44 | Cardiac Electrophysiology PN ---
Assessment/Plan Assessment/Plan 1. Severe bilateral lower extremity edema. Echocardiogram EF 60%. Also has renal failure Cr 1.8. On Lasix 40 mg po daily 2. Hypertension. Continue Lasix, Norvasc 5 and Coreg 25 mg b.i.d. Avoid BOBBY inhibitor and angiotensin-receptor blockers in view of his renal failure at this point. 3. Morbid obesity. 4. Renal failure Cr 1.8 DC today Subjective Subjective No CP or SOB. Diuresing well. DC planning today Objective Last 24 Hour Vital Signs Date Time Temp Pulse Resp B/P (MAP) Pulse Ox O2 Delivery O2 Flow Rate FiO2 03/18/18 16:00 97.8 62 18 149/63 (91) 94 03/18/18 11:48 97.5 68 19 154/64 (94) 93 03/18/18 10:00 68 160/79 (106) 03/18/18 09:00 Room Air 03/18/18 08:37 176/78 03/18/18 08:37 72 176/78 03/18/18 08:00 98.0 72 20 176/78 (110) 94 03/18/18 06:43 69 151/65 (93) 03/18/18 05:45 71 179/65 (103) 03/18/18 04:30 183/64 03/18/18 04:00 98.8 68 18 183/64 (103) 96 03/18/18 00:00 98.8 65 19 155/69 (97) 97 03/17/18 23:00 67 159/66 (97) 03/17/18 21:40 169/75 03/17/18 21:00 Room Air 03/17/18 20:34 68 162/76 03/17/18 20:00 97.7 68 20 162/76 (104) 97 Intake and Output 03/17/18 03/18/18 19:00 07:00 Intake Total 300 ml 480 ml Output Total 300 ml 375 ml Balance 0 ml 105 ml Intake Oral 300 ml 480 ml Output Urine Total 300 ml 375 ml # Voids 3 2 # Bowel Movements 1 1 Objective HEAD AND NECK: Mild JVD. LUNGS: Decreased breath sounds. CARDIOVASCULAR: Regular S1 and S2 with no gallop. ABDOMEN: Soft. EXTREMITIES: 2+ pitting edema. Jose Chairez MD Mar 18, 2018 16:44
[2018-03-18] MEDS: Thiamine 100mg tab ORAL SCH (17:33)
--- NOTE | 2018-03-18 17:51 | General Progress Note ---
Assessment/Plan Assessment/Plan Assessment - Iron deficiency anemia - CHF - Renal failure - Anasarca - Await transfer to [facility] Recommendations - Continue Venofer - po as tolerated - [facility], once improved Subjective Allergies: Coded Allergies: No Known Allergies (Unverified , 03/10/18) Subjective Above noted Feels OK no abdominal symptoms Objective Last 24 Hour Vital Signs Date Time Temp Pulse Resp B/P (MAP) Pulse Ox O2 Delivery O2 Flow Rate FiO2 03/18/18 17:33 62 149/63 03/18/18 16:00 97.8 62 18 149/63 (91) 94 03/18/18 11:48 97.5 68 19 154/64 (94) 93 03/18/18 10:00 68 160/79 (106) 03/18/18 09:00 Room Air 03/18/18 08:37 176/78 03/18/18 08:37 72 176/78 03/18/18 08:00 98.0 72 20 176/78 (110) 94 03/18/18 06:43 69 151/65 (93) 03/18/18 05:45 71 179/65 (103) 03/18/18 04:30 183/64 03/18/18 04:00 98.8 68 18 183/64 (103) 96 03/18/18 00:00 98.8 65 19 155/69 (97) 97 03/17/18 23:00 67 159/66 (97) 03/17/18 21:40 169/75 03/17/18 21:00 Room Air 03/17/18 20:34 68 162/76 03/17/18 20:00 97.7 68 20 162/76 (104) 97 Intake and Output 03/17/18 03/18/18 19:00 07:00 Intake Total 300 ml 480 ml Output Total 300 ml 375 ml Balance 0 ml 105 ml Intake Oral 300 ml 480 ml Output Urine Total 300 ml 375 ml # Voids 3 2 # Bowel Movements 1 1 Height (Feet): 5 Height (Inches): 11.00 Weight (Pounds): 287 Objective WDWN NCAT supple CTA RRR Abd soft ND no edema Antoinette Calderon MD Mar 18, 2018 17:51
[2018-03-18] MEDS ORDERED: Vitamin B12 1000mcg/ml Inj IM SCH (18:00)
--- NOTE | 2018-03-18 19:45 | NUR ---
NURSE NOTES: Received report from FRANKY Gore. Received pt lying in bed, A&OX4, denies pain, no distress noted. Safety measures maintained. Bed in lowest position and locked, side rails up x 2, call light within reach. Will continue to monitor.
--- NOTE | 2018-03-18 19:50 | NUR ---
HAND-OFF: Report given to FRANKY ZARATE.
[2018-03-18] MEDS: Tamsulosin 0.4mg cap ORAL SCH (20:24)
[2018-03-19] VITALS: BP 155/63
[2018-03-19 04:00] VITALS: BP 159/70
[2018-03-19] MEDS: Levothyroxine 25mcg tab ORAL SCH (05:44)
--- NOTE | 2018-03-19 07:26 | NUR ---
HAND-OFF: Report given to FRANKY Javier. Pt in stable condition.
[2018-03-19 08:00] VITALS: BP 122/68
--- NOTE | 2018-03-19 08:00 | NUR ---
NURSE NOTES: Received patient in bed, resting and alert to name and place. Patient denies pain. No signs of respiratory distress. No IV, MD aware. Bed in lowest position, call light within reach. Will continue to monitor.
[2018-03-19] MEDS: Furosemide 40mg tab ORAL SCH (09:07)
[2018-03-19] MEDS: Carvedilol 25mg Tab ORAL SCH ×2 (09:07→20:59)
--- NOTE | 2018-03-19 09:07 | Pulmonology Progress Note ---
Assessment/Plan Problems: (1) Glomerulonephritis Assessment & Plan: S/P biopsy in [place] @ the [facility] - results? (2) Anasarca Assessment & Plan: Improved with diuresis (3) Proteinuria (4) CHARLIE (acute kidney injury) (5) Anemia Assessment & Plan: MOJGAN, needs OP endoscopy (6) Thyroid nodule Assessment & Plan: Dominant, heterogeneous complex nodule in the left thyroid lobe measuring 2 x 3 cm (7) Iron deficiency anemia Assessment/Plan -Monitor volumes and renal function, now on PO Lasix -BP control -F/U cards and renal recs -F/U studies, had renal Bx in [place] -F/U heme recs, continue EPO -GI eval appreciated, needs outpatient ENDOSCOPY -ENDO recs: continue synthroid, repeat TSH as OP, declines thyroid FNA - states will do in [place] -Observe off Abx per ID, diphteroids in urine likely contaminant -Cardiac diet -Not accepted @ [facility], Per CM not accepted @ SNF, d/w son Robert who is unable to care for patient but will pick him up tommorrow and take to [place] DVT Prophylaxis: HEP SQ Code status: full Hospital Classification declaration: Based on this initial evaluation, and depending on the patient's clinical course, I anticipate that this patient will require hospitalization for 1-2days. Disposition: Once the patient is stable to leave the hospital, I anticipate the patient will likely be discharged home or transferred to the [facility] Subjective Allergies: Coded Allergies: No Known Allergies (Unverified , 03/10/18) Subjective AFVSS on RA Feels good Denies sig SOB no cough no wheezing no CP no F/C Refused thyroid Bx Son plans to pick patient up on tommorrow and take to [place] Objective Last 24 Hour Vital Signs Date Time Temp Pulse Resp B/P (MAP) Pulse Ox O2 Delivery O2 Flow Rate FiO2 03/19/18 08:00 98.2 63 20 122/68 (86) 97 03/19/18 04:00 98.0 70 18 159/70 (99) 94 03/19/18 00:00 98.2 68 18 155/63 (93) 95 03/18/18 21:00 Room Air 03/18/18 20:24 72 136/59 03/18/18 20:00 98.0 72 18 136/59 (84) 96 03/18/18 17:33 62 149/63 03/18/18 16:00 97.8 62 18 149/63 (91) 94 03/18/18 11:48 97.5 68 19 154/64 (94) 93 03/18/18 10:00 68 160/79 (106) Intake and Output 03/18/18 03/19/18 19:00 07:00 Intake Total 1055 ml 200 ml Output Total 550 ml 750 ml Balance 505 ml -550 ml Intake Oral 1055 ml 200 ml Output Urine Total 550 ml 750 ml # Voids 3 # Bowel Movements 2 1 General Appearance: WD/WN, no acute distress HEENT: normocephalic, atraumatic, anicteric, mucous membranes moist Respiratory/Chest: chest wall non-tender, lungs clear, normal breath sounds, no respiratory distress, no accessory muscle use Cardiovascular: normal peripheral pulses, normal rate, regular rhythm Abdomen: normal bowel sounds, soft, non tender, no organomegaly, non distended , no mass Extremities: no cyanosis, no clubbing, no edema Current Medications Medications (Trade) Dose Ordered Sig/Panfilo Route PRN Reason Start Time Stop Time Status Last Admin Dose Admin Acetaminophen (Tylenol) 650 mg Q6H PRN ORAL Mild Pain/Temp > 100.5 03/15/18 16:50 04/10/18 16:49 Amlodipine Besylate (Norvasc) 5 mg DAILY ORAL 03/19/18 09:00 04/18/18 08:59 Carvedilol (Coreg) 25 mg EVERY 12 HOURS ORAL 03/15/18 21:00 04/09/18 20:59 03/18/18 20:24 Epoetin Bobby (Procrit (for non ESRD use)) 10,000 units THU-THU-THU SUBQ 03/15/18 21:00 04/14/18 20:59 03/17/18 20:35 Folic Acid (Folate) 3 mg DAILY ORAL 03/16/18 09:00 04/11/18 14:44 03/18/18 08:37 Furosemide (Lasix) 40 mg DAILY ORAL 03/16/18 09:00 04/14/18 08:59 03/18/18 08:38 Heparin Sodium (Porcine) (Heparin 5000 units/ml) 5,000 units EVERY 12 HOURS SUBQ 03/15/18 21:00 04/10/18 20:59 03/18/18 20:28 Hydralazine HCl (Apresoline) 25 mg Q4H PRN ORAL bp over 160 syst 03/15/18 16:51 04/12/18 16:50 03/18/18 08:37 Levothyroxine Sodium (Synthroid) 25 mcg DAILY@0630 ORAL 03/16/18 06:30 04/12/18 06:29 03/19/18 05:44 Ondansetron HCl (Zofran) 4 mg Q6H PRN IVP Nausea & Vomiting 03/15/18 16:51 04/10/18 16:50 Pantoprazole (Protonix) 40 mg DAILY ORAL 03/16/18 09:00 04/10/18 14:29 03/18/18 08:38 Tamsulosin HCl (Flomax) 0.4 mg BEDTIME ORAL 03/15/18 21:00 04/10/18 20:59 03/18/18 20:24 Thiamine HCl (Vitamin B1) 100 mg DAILY ORAL 03/18/18 16:23 04/17/18 16:22 03/18/18 17:33 Rambo Conklin MD Mar 19, 2018 09:07
[2018-03-19] MEDS: Thiamine 100mg tab ORAL SCH (09:08)
[2018-03-19] MEDS: Heparin 5000 units/ml inj SUBQ SCH ×2 (09:08→21:06)
--- NOTE | 2018-03-19 09:42 | NUR ---
PT NOTE: Presents w/ general deconditioning & weakness. Poor stability w/ SPC. Pt would benefit from FWW for short distances at this time. Benefits from lightweight bariatric transport wheelchair for longer distances. Pt will benefit from continued rehab to maximize strength and independence with mobility and minimize fall risk. Pt is 5ft 11 inches, weighs 285 pounds.
--- NOTE | 2018-03-19 11:08 | Infectious Diseases Prog Note ---
Assessment/Plan Assessment/Plan antibiotics : none A 1. ? UTI, culture contaminated 2. hypertension 3. CHF P 1. continue off antibiotics Subjective Constitutional: Denies: fever, chills Respiratory: Denies: shortness of breath, dry cough Gastrointestinal/Abdominal: Denies: nausea, vomiting, diarrhea Musculoskeletal: Denies: pain Allergies: Coded Allergies: No Known Allergies (Unverified , 03/10/18) Objective Vital Signs Last 24 Hour Vital Signs Date Time Temp Pulse Resp B/P (MAP) Pulse Ox O2 Delivery O2 Flow Rate FiO2 03/19/18 09:08 63 122/68 03/19/18 09:07 63 122/68 03/19/18 08:00 98.2 63 20 122/68 (86) 97 03/19/18 04:00 98.0 70 18 159/70 (99) 94 03/19/18 00:00 98.2 68 18 155/63 (93) 95 03/18/18 21:00 Room Air 03/18/18 20:24 72 136/59 03/18/18 20:00 98.0 72 18 136/59 (84) 96 03/18/18 17:33 62 149/63 03/18/18 16:00 97.8 62 18 149/63 (91) 94 03/18/18 11:48 97.5 68 19 154/64 (94) 93 Height (Feet): 5 Height (Inches): 11.00 Weight (Pounds): 287 Respiratory/Chest: lungs clear Cardiovascular: normal rate, regular rhythm, no gallop/murmur Abdomen: soft, non tender Extremities: no edema Current Medications Medications (Trade) Dose Ordered Sig/Panfilo Route PRN Reason Start Time Stop Time Status Last Admin Dose Admin Acetaminophen (Tylenol) 650 mg Q6H PRN ORAL Mild Pain/Temp > 100.5 03/15/18 16:50 04/10/18 16:49 Amlodipine Besylate (Norvasc) 5 mg DAILY ORAL 03/19/18 09:00 04/18/18 08:59 03/19/18 09:08 Carvedilol (Coreg) 25 mg EVERY 12 HOURS ORAL 03/15/18 21:00 04/09/18 20:59 03/19/18 09:07 Epoetin Bobby (Procrit (for non ESRD use)) 10,000 units THU-THU-THU SUBQ 03/15/18 21:00 04/14/18 20:59 03/17/18 20:35 Folic Acid (Folate) 3 mg DAILY ORAL 03/16/18 09:00 04/11/18 14:44 03/19/18 09:08 Furosemide (Lasix) 40 mg DAILY ORAL 03/16/18 09:00 04/14/18 08:59 03/19/18 09:07 Heparin Sodium (Porcine) (Heparin 5000 units/ml) 5,000 units EVERY 12 HOURS SUBQ 03/15/18 21:00 04/10/18 20:59 03/19/18 09:08 Hydralazine HCl (Apresoline) 25 mg Q4H PRN ORAL bp over 160 syst 03/15/18 16:51 04/12/18 16:50 03/18/18 08:37 Levothyroxine Sodium (Synthroid) 25 mcg DAILY@0630 ORAL 03/16/18 06:30 04/12/18 06:29 03/19/18 05:44 Ondansetron HCl (Zofran) 4 mg Q6H PRN IVP Nausea & Vomiting 03/15/18 16:51 04/10/18 16:50 Pantoprazole (Protonix) 40 mg DAILY ORAL 03/16/18 09:00 04/10/18 14:29 03/19/18 09:07 Tamsulosin HCl (Flomax) 0.4 mg BEDTIME ORAL 03/15/18 21:00 04/10/18 20:59 03/18/18 20:24 Thiamine HCl (Vitamin B1) 100 mg DAILY ORAL 03/18/18 16:23 04/17/18 16:22 03/19/18 09:08 Joo Medina MD Mar 19, 2018 11:08
--- NOTE | 2018-03-19 11:30 | NUR ---
NURSE NOTES: FWW walker set up and kept in patient's room for anticipated discharge.
[2018-03-19 12:00] VITALS: BP 129/59
--- NOTE | 2018-03-19 12:28 | Cardiac Electrophysiology PN ---
Assessment/Plan Assessment/Plan 1. Severe bilateral lower extremity edema. Echocardiogram EF 60%. Also has renal failure Cr 1.8. On Lasix 40 mg po daily 2. Hypertension. Continue Lasix, Norvasc 5 and Coreg 25 mg b.i.d. Avoid BOBBY inhibitor and angiotensin-receptor blockers in view of his renal failure at this point. 3. Morbid obesity. 4. Renal failure Cr 1.8 Subjective Subjective No CP or SOB. Diuresing well. DC planning changed to tomorrow Objective Last 24 Hour Vital Signs Date Time Temp Pulse Resp B/P (MAP) Pulse Ox O2 Delivery O2 Flow Rate FiO2 03/19/18 09:08 63 122/68 03/19/18 09:07 63 122/68 03/19/18 09:00 Room Air 03/19/18 08:00 98.2 63 20 122/68 (86) 97 03/19/18 04:00 98.0 70 18 159/70 (99) 94 03/19/18 00:00 98.2 68 18 155/63 (93) 95 03/18/18 21:00 Room Air 03/18/18 20:24 72 136/59 03/18/18 20:00 98.0 72 18 136/59 (84) 96 03/18/18 17:33 62 149/63 03/18/18 16:00 97.8 62 18 149/63 (91) 94 Intake and Output 03/18/18 03/19/18 18:59 06:59 Intake Total 1055 ml 200 ml Output Total 550 ml 750 ml Balance 505 ml -550 ml Intake Oral 1055 ml 200 ml Output Urine Total 550 ml 750 ml # Voids 3 # Bowel Movements 2 1 Objective HEAD AND NECK: Mild JVD. LUNGS: Decreased breath sounds. CARDIOVASCULAR: Regular S1 and S2 with no gallop. ABDOMEN: Soft. EXTREMITIES: 2+ pitting edema. Jose Chairez MD Mar 19, 2018 12:28
--- NOTE | 2018-03-19 12:30 | NUR ---
NURSE NOTES: Attempted to call Dr. Conklin regarding discharge medications but no call back. Will re-attempt at later time.
--- NOTE | 2018-03-19 14:21 | Nephrology Progress Note ---
Assessment/Plan Problem List: (1) CHARLIE (acute kidney injury) (2) Proteinuria (3) Congestive heart failure (CHF) (4) Anasarca (5) Nephrotic syndrome Assessment Anemia, Proteinuria, HypoAlbuminemia, Renal Failure ? Diabetic ? Amyloidosis HTN ? CHF Plan add Norvasc Thiamine Iron IV Mag EPO 24 H urine protein close to 8 grams Protein SPEP UPEP HgbA1c : 6.2 BP control, up on Coreg 2D echo noted lasix to po per orders Kidney Bx as OP ? Subjective ROS Limited/Unobtainable: No Objective Objective Last 24 Hour Vital Signs Date Time Temp Pulse Resp B/P (MAP) Pulse Ox O2 Delivery O2 Flow Rate FiO2 03/19/18 12:00 98.3 58 20 129/59 (82) 96 03/19/18 09:08 63 122/68 03/19/18 09:07 63 122/68 03/19/18 09:00 Room Air 03/19/18 08:00 98.2 63 20 122/68 (86) 97 03/19/18 04:00 98.0 70 18 159/70 (99) 94 03/19/18 00:00 98.2 68 18 155/63 (93) 95 03/18/18 21:00 Room Air 03/18/18 20:24 72 136/59 03/18/18 20:00 98.0 72 18 136/59 (84) 96 03/18/18 17:33 62 149/63 03/18/18 16:00 97.8 62 18 149/63 (91) 94 Intake and Output 03/18/18 03/19/18 18:59 06:59 Intake Total 1055 ml 200 ml Output Total 550 ml 750 ml Balance 505 ml -550 ml Intake Oral 1055 ml 200 ml Output Urine Total 550 ml 750 ml # Voids 3 # Bowel Movements 2 1 Height (Feet): 5 Height (Inches): 11.00 Weight (Pounds): 287 General Appearance: no apparent distress Objective no change Arcadio Guevara MD Mar 19, 2018 14:21
[2018-03-19 16:00] VITALS: BP 128/63
--- NOTE | 2018-03-19 16:30 | General Progress Note ---
Assessment/Plan Assessment/Plan Assessment - Iron deficiency anemia - CHF - Renal failure - Anasarca - Await transfer to [facility] Recommendations - Continue Venofer - po as tolerated - [facility], once improved Subjective Allergies: Coded Allergies: No Known Allergies (Unverified , 03/10/18) Subjective Above noted Feels OK no abdominal symptoms Objective Last 24 Hour Vital Signs Date Time Temp Pulse Resp B/P (MAP) Pulse Ox O2 Delivery O2 Flow Rate FiO2 03/19/18 12:00 98.3 58 20 129/59 (82) 96 03/19/18 09:08 63 122/68 03/19/18 09:07 63 122/68 03/19/18 09:00 Room Air 03/19/18 08:00 98.2 63 20 122/68 (86) 97 03/19/18 04:00 98.0 70 18 159/70 (99) 94 03/19/18 00:00 98.2 68 18 155/63 (93) 95 03/18/18 21:00 Room Air 03/18/18 20:24 72 136/59 03/18/18 20:00 98.0 72 18 136/59 (84) 96 03/18/18 17:33 62 149/63 Intake and Output 03/18/18 03/19/18 18:59 06:59 Intake Total 1055 ml 200 ml Output Total 550 ml 750 ml Balance 505 ml -550 ml Intake Oral 1055 ml 200 ml Output Urine Total 550 ml 750 ml # Voids 3 # Bowel Movements 2 1 Height (Feet): 5 Height (Inches): 11.00 Weight (Pounds): 287 Objective WDWN NCAT supple CTA RRR Abd soft ND no edema Antoinette Calderon MD Mar 19, 2018 16:30
--- NOTE | 2018-03-19 18:21 | NUR ---
CASE MANAGEMENT: REVIEW SI: RENAL FAILURE T 98.3 HR 58 RR 20 BP 129/59 SAT 96% ROOM AIR H/H 8.8/28.0 IS: FOLIC ACID PO QD LASIX PO QD PROTONIX PO QD COREG PO Q12HR PROCRIT SQ MWF HYDRALAZINE 25MG PO Q4HR PRN MED/SURG STATUS DCP: PATIENT IS FROM HOME
--- NOTE | 2018-03-19 19:39 | NUR ---
HAND-OFF: Report given to SELENE Garcia.
--- NOTE | 2018-03-19 19:39 | NUR ---
NURSE NOTES:Patient received from Concepcion Davis patient in bed A/A/AOX4 .patient denies any pain at this time . no sob /no n/v noted .patient no IV access aware. safety maintained . call light within reach . bed in low position at all times. will continue to monitor patient .
[2018-03-19 20:00] VITALS: BP 153/68
--- NOTE | 2018-03-19 20:05 | General Progress Note ---
Assessment/Plan Assessment/Plan Assessment and Recs: # Anemia of iron deficiency, has been started on iron --> spep is negative for band restriction --> anemia panel has been ordered, tsh as well --> endo, cards and renal recs reviewed --> transfuse if hgb is less than 7 --> iron iv continue x 5 days # Thyroid nodule 2.3 x 2.2 x 1.8 cm hypodense nodule in the thyroid isthmus. --> On us shows a dominant, heterogeneous complex nodule in the left thyroid lobe measuring 2 x 3 cm. --> Consider FNA and/or evaluation with I-123 scan) # Elevated tumor markers cea 4.9 --> trend as per gi, outpatient monitoring # Anasarca -- potentially proteinuria related --> further recs per neprho --> eval with cards as well if chf # CHARLIE (acute kidney injury) # Proteinuria potentially consider a kidney bx --> appreciate renal recs # Glomerulonephritis # Congestive heart failure (CHF) The time of encounter does not reflect the time of the note Greatly appreciate consultation! Subjective Constitutional: Denies: no symptoms, chills, diaphoresis, fever, malaise, weakness, other HEENT: Denies: no symptoms, eye pain, blurred vision, tearing, double vision, ear pain, ear discharge, nose pain, nose congestion, throat pain, throat swelling, mouth pain, mouth swelling, other Respiratory: Denies: no symptoms, cough, orthopnea, shortness of breath, SOB with excertion, SOB at rest, sputum, stridor, wheezing, other Gastrointestinal/Abdominal: Denies: no symptoms, abdomen distended, abdominal pain, black stools, tarry stools, blood in stool, constipated, diarrhea, difficulty swallowing, nausea, poor appetite, poor fluid intake, rectal bleeding , vomiting, other Genitourinary: Denies: no symptoms, burning, discharge, frequency, flank pain, hematuria, incontinence, pain, urgency, other Neurologic/Psychiatric: Denies: no symptoms, anxiety, depressed, emotional problems, headache, numbness, paresthesia, pre-existing deficit, seizure, tingling, tremors, weakness, other Allergies: Coded Allergies: No Known Allergies (Unverified , 03/10/18) Subjective 03/14: getting lasix and coreg, diuresis, not bleeding 03/15: awake and comfortable, no chest pain or SOB, no bleeding. no events 03/16: Pt is seen by bedside, awake and comfortable, ambulated in the hallway with assistance, no events. 03/17: Pt is awake and comfortable, denies fevers or chills, Refused FNA of the thyroid 03/18: bp is slightly high and dc as early as thursday, appreciate pcp recs 03/19: on procrit and lasix, seen by renal, no other events Objective Last 24 Hour Vital Signs Date Time Temp Pulse Resp B/P (MAP) Pulse Ox O2 Delivery O2 Flow Rate FiO2 03/19/18 16:00 98.4 61 19 128/63 (84) 96 03/19/18 12:00 98.3 58 20 129/59 (82) 96 03/19/18 09:08 63 122/68 03/19/18 09:07 63 122/68 03/19/18 09:00 Room Air 03/19/18 08:00 98.2 63 20 122/68 (86) 97 03/19/18 04:00 98.0 70 18 159/70 (99) 94 03/19/18 00:00 98.2 68 18 155/63 (93) 95 03/18/18 21:00 Room Air 03/18/18 20:24 72 136/59 Intake and Output 03/18/18 03/19/18 19:00 07:00 Intake Total 1055 ml 200 ml Output Total 550 ml 750 ml Balance 505 ml -550 ml Intake Oral 1055 ml 200 ml Output Urine Total 550 ml 750 ml # Voids 3 # Bowel Movements 2 1 Height (Feet): 5 Height (Inches): 11.00 Weight (Pounds): 287 Objective General: no apparent distress Head: normocephalic, atraumatic Eyes: bilateral eye normal inspection, bilateral eye PERRL ENT: hearing grossly normal, normal pharynx Neck: full range of motion, supple/symm/no masses Respiratory: chest non-tender, lungs clear, normal breath sounds, no respiratory distress Cardiovascular: regular rate, rhythm, no edema, edema - BLE and BUE edema Gastrointestinal: normal bowel sounds, non tender Neurologic: alert, oriented x3, responsive Psychiatric: judgement/insight normal, mood/affect normal Skin: normal color, ++ anasarca Kleynberg,Alexx L. MD Mar 19, 2018 20:05
--- NOTE | 2018-03-19 20:18 | NUR ---
NURSE NOTES:Patient ambulated and assisted to bathroom with FWW . and assisted back to bed . Patient has normal bowel movement x1. call light within reach . bed in low position at all times .
[2018-03-19] MEDS: Tamsulosin 0.4mg cap ORAL SCH (20:58)
[2018-03-19] MEDS: Epogen (for non ESRD use) SUBQ SCH (20:59)
[2018-03-20] VITALS: BP 148/67
[2018-03-20 03:23] VITALS: BP 188/71
[2018-03-20] MEDS: HydrALAZINE 25mg tab ORAL PRN (03:27)
--- NOTE | 2018-03-20 03:37 | NUR ---
NURSE NOTES:Patient B/P elevated 188/71 mmHg. P69/min .R 20/min. T97.6. Hydralazine 25 mg PO given @03:37 as ordered. will continue to monitor. Addendum: 03/20/18 at 0527 by OMKAR MOCTEZUMA LVN NURSE NOTES: spo2 97% Addendum: 03/22/18 at 1838 by OMKAR MOCTEZUMA LVN Notified and aware .will continue to monitor patient .
[2018-03-20 04:33] VITALS: BP 153/68
--- NOTE | 2018-03-20 04:33 | NUR ---
NURSE NOTES:Patient B/P re checked @ 04:33 am 153/68 mmHg P68/min. R 20/min. T97.6. SPO2 97%.martin;l continue to monitor .
[2018-03-20] MEDS: Levothyroxine 25mcg tab ORAL SCH (06:16)
--- NOTE | 2018-03-20 07:35 | NUR ---
HAND-OFF: Report given to Ermelindapatient in stable condition.
--- NOTE | 2018-03-20 07:40 | NUR ---
NURSE NOTES: Received patient in bed, awake, alert and oriented x3. Not in acute respiratory/cardiac distress. Denies any pain or discomfort. No IV received. Awaiting for his son to be discharged. Call light and personnel items within reach. Bed is in lowest position and locked. Will continue plan of are.
[2018-03-20 08:00] VITALS: BP 145/77
[2018-03-20] MEDS ORDERED: COREG25 MG ORAL (08:06)
[2018-03-20] MEDS ORDERED: NORVASC5 MG ORAL (08:06)
[2018-03-20] MEDS ORDERED: FUROSEMIDE40 MG ORAL (08:07)
[2018-03-20] MEDS ORDERED: HYDRALAZINE HCL25 M1 ORAL (08:07)
[2018-03-20] MEDS ORDERED: FOLIC ACID1 MG ORAL (08:07)
[2018-03-20] MEDS ORDERED: SYNTHROID25 MCG ORAL (08:08)
[2018-03-20] MEDS ORDERED: VITAMIN B-1100 MG ORAL (08:08)
[2018-03-20] MEDS ORDERED: PROTONIX40 MG ORAL (08:08)
[2018-03-20] MEDS ORDERED: TAMSULOSIN HCL0.4 MG ORAL (08:08)
[2018-03-20] MEDS: Thiamine 100mg tab ORAL SCH (08:35)
[2018-03-20 08:36] VITALS: BP 145/71
[2018-03-20] MEDS: Carvedilol 25mg Tab ORAL SCH (08:36)
[2018-03-20] MEDS: Furosemide 40mg tab ORAL SCH (08:37)
--- NOTE | 2018-03-20 08:43 | NUR ---
NURSE NOTES: Patient discharged to home accompanied by his son Robert via private car. Prior to discharge, patient's V/S and condition was stable. RN spoke to Dr. Conklin. Dr. Conklin said to continue with hospital meds and it is ok for him to take airplane and give morning meds prior to discharge. ID was removed. Skin assessment done with intact skin. No IV. Discharge instruction given to the patient and son Robert who is taking the patient to [facility] there. Patient and son understood and follow up with primary care physician. Belongings were checked by RN and patient and son. All belongings accounted for. Patient took all the belongings including cobb of $213.00, 1 yellow chain, old laptop, two cell phones, charge,clothing, upper and lower dentures with him except 1 pair of shoes and 1 luggage. Patient and son told RN to throw it away. Discharge paper was given to the son. Patient and son know when to seek medical attention.Staff escorted patient to his car. FWW given tot he patient.
[2018-03-20] MEDS: Heparin 5000 units/ml inj SUBQ SCH (09:00)
--- NOTE | 2018-03-22 16:13 | Discharge Summary ---
Discharge Summary Discharge Summary _ Discharge summary DATE OF ADMISSION: 03/10/2018 DATE OF DISCHARGE: 03/20/2018 DISCHARGED BY: Dr. Conklin REASON FOR ADMISSION: 82 years old male with unknown past medical history except probable hypertension, presented for shortness of breath and peripheral edema in the setting of nephrotic syndrome and possible CHF. Patient was initially admitted at [facility] in [place] last month for unknown reason with several weeks of increased edema, frothy urine, shortness of breath. No cough , no wheezing, no fevers, no chills. Patient unsure why he was hospitalized and stated that he had no medical problems other than possibly hypertension. Patient was currently visiting from [place]. While in the emergency department laboratory workup revealed abnormal renal function with proteinuria. Physical exam revealed edema and there was a concern of acute diastolic heart failure. Urinalysis revealed +4 protein , + leukocyte esterase, pyuria and moderate bacteria. Laboratory workup revealed no leukocytosis, hemoglobin 9.1, hematocrit 29.3 . BUN 25 creatinine 1.8. Troponin negative , pro BNP 384 , stable LFT , albumin 1.4. X-ray revealed cardiomegaly with interstitial edema. Possible left pleural effusion. CONSULTANTS: sales and service representative Dr. Shelton ID specialist Dr. Mclaughlin GI specialist Dr. Contreras conservation of resources commissioner Dr. Guevara scow derrick operator/oncologist Dr. Medina extension course coordinator Dr. Hernandez [facility] COURSE: Patient admitted to telemetry floor. Patient started on cautious diuresis with close monitoring of volumes and cardiorenal parameters. Cardiology and nephrology evaluations were requested. Urine studies were done along with serum and urine protein electrophoresis. Treasury Consultant followed. 24-hour urine protein close to 8 gram of protein. Treasury Consultant recommended kidney biopsy as outpatient. Renal parameters and electrolytes were closely monitored. Electrolytes corrected as needed. Echocardiogram revealed preserved ejection fraction with mild left ventricular hypertrophy. No evidence of wall motion abnormality. Grade 1 diastolic dysfunction. Cardiology closely followed . Blood pressure was managed with beta-kaur, calcium channel kaur, and Lasix. Demand Planner recommended to avoid BOBBY inhibitor or angiotensin receptor kaur in view of renal failure at this point. Lasix initially intravenous then was changed to oral route. DVT prophylaxis with heparin provided. CT scan of the chest abdomen and pelvis revealed small right pleural effusion and trace left pleural effusion. 2.3 x 2.2 x 1.8 cm hypodense nodule in the thyroid isthmus. Further evaluation with thyroid ultrasound was recommended. Right convex thoracic scoliotic curvature with associated multilevel degenerative change. No findings to suggest acute appendicitis. No gallstones. No splenomegaly. 6 mm nonobstructive stone in the left lower renal pole. Simple appearing renal cortical cyst. Mild sigmoid colonic diverticulosis without evidence of acute inflammation. Cafe Worker closely followed. Serum protein electrophoresis was negative for band restriction. Hemoglobin and hematocrit were closely monitored with goal to keep hemoglobin above 7. Patient was on Epogen as per conservation of resources commissioner. Anemia workup was consistent with anemia of iron deficiency . Patient was started on IV iron. Anemia workup also revealed low folate and borderline B12 levels. Patient was provided with folic acid , thiamine and B12 supplements. Hemoglobin A1c 6.2/prediabetic. Patient was recommended no concentrated sweets diet. Noted elevated CEA of 4.9. GI closely follow. GI recommended EGD and colonoscopy at [facility] once improved . Net C Developer followed. Thyroid ultrasound revealed a dominant heterogeneous complex nodule in the left thyroid lobe measuring 2 x 3 cm. Net C Developer recommended fine-needle aspiration . Dominant nodule on the left lobe did not have any worrisome characteristics as per extension course coordinator, however there was an indication for fine-needle aspiration under guidance due to large size, which can be done either as outpatient or later at [facility]. Patient started on levothyroxine at low dose 25 mcg daily after TFT noted. Repeat TSH free T4 in 4 weeks. Infectious disease specialist closely followed. Urine culture with Diphtheroids , likely contaminant. No objective indication for UTI or antibiotic treatment. Patient was monitored off antibiotics. No fever no leukocytosis. [facility] unfortunately did not accept patient Patient was not accepted at nursing facility as well. Plan of care was discussed with patient's son who will pick him up and take him to [place] . FINAL DIAGNOSES: Nephrotic syndrome Acute kidney injury Congestive heart failure Anemia of iron deficiency Thyroid nodule Hypothyroidism Proteinuria Anasarca Morbid obesity Hypertension Hypoalbuminemia Elevated tumor markers ( CEA 4.9) DISCHARGE MEDICATIONS: See Medication Reconciliation list. DISCHARGE INSTRUCTIONS: Patient was discharged home Follow up with primary care provider in one week at [facility] [place]. Will benefit form kidney biopsy. Colonoscopy was recommended. I have been assigned to dictate discharge summary for this account. I was not involved in the patient's management. Jamaica Decker NP Mar 22, 2018 16:13
--- NOTE | 2018-03-24 11:12 | Diagnostic Imaging Report ---
APPROVED REPORT CPT Code: 51611 Present Symptoms Lower Extremity Edema: Comments: Swelling Technically difficult and limited visualization due to obesity(thigh and calf area) BILATERAL: Imaging reveals a patent deep venous system bilaterally. There is no evidence of thrombus within the femoral, popliteal or tibial segments. The greater saphenous veins are also within normal limits. Doppler indicates normal spontaneous flow within these segments.
--- NOTE | 2018-04-02 09:14 | Cardiology Report ---
APPROVED REPORT EXAM: Two-dimensional and M-mode echocardiogram with Doppler and color Doppler. INDICATION Congestive Heart Failure M-Mode DIMENSIONS IVSd1.2 (0.7-1.1cm)Left Atrium (MM)3.5 (1.6-4.0cm) LVDd5.8 (3.5-5.6cm)Aortic Root3.6 (2.0-3.7cm) PWd0.9 (0.7-1.1cm)Aortic Cusp Exc.1.8 (1.5-2.0cm) IVSs1.9 cm LVDs3.4 (2.5-4.0cm) PWs1.3 cm Normal left ventricular chamber size, systolic function and wall motion. Left ventricular ejection fraction estimated to be 60-65 %. Mild left ventricular hypertrophy by 2-D. Trivial pericardial effusion. Left atrial size at upper limits of normal. Right cardiac chamber sizes are within normal limits. Focal aortic valve sclerosis with adequate cusp excursion. Thickened mitral valve leaflets with normal excursion. Mitral annulus and aortic root calcification. Pulmonic valve not well visualized. Normal tricuspid valve structure. IVC at normal size with physiologic collapse. A color flow and spectral Doppler study was performed and revealed: No aortic regurgitation. Trace mitral regurgitation. Mitral diastolic velocities suggest reduced left ventricular relaxation c/w mild LV diastolic dysfunction (Grade I ). Trace tricuspid regurgitation. Tricuspid systolic velocities suggests peak right ventricular systolic pressure of 18 mmHg No pulmonic regurgitation present.
== END 2018-03-20 09:31 | disposition home or self-care (01) | DRG 698 ==
LOC: EDBD 13:52 → EMR 16:53 → EDBEDREQSVC 17:15 → EDBEDREQ 17:15 → 2E 17:19 → EDBEDREQ 21:32 → 3E 03-15 16:40
DX: E11.21 Type 2 diabetes mellitus with diabetic nephropathy (principal); I50.31 Acute diastolic (congestive) heart failure; I13.0 Hypertensive heart and chronic kidney disease with heart failure and stage 1 through stage 4 chronic kidney disease, or unspecified chronic kidney disease; N05.9 Unspecified nephritic syndrome with unspecified morphologic changes; N17.9 Acute kidney failure, unspecified; D50.9 Iron deficiency anemia, unspecified; E04.1 Nontoxic single thyroid nodule; E03.9 Hypothyroidism, unspecified; R80.9 Proteinuria, unspecified; E66.01 Morbid (severe) obesity due to excess calories; E88.09 Other disorders of plasma-protein metabolism, not elsewhere classified; R97.0 Elevated carcinoembryonic antigen [CEA]; E11.22 Type 2 diabetes mellitus with diabetic chronic kidney disease; N18.9 Chronic kidney disease, unspecified
CPT/HCPCS: 36415; 71045; 71250; 74176; 76536; 80053; 80061; 81003; 81050; 82378; 82550; 82553; 82607; 82728; 82746; 82962; 82977; 83036; 83540; 83550; 83735; 83880; 84100; 84156; 84165; 84439; 84443; 84484; 84550; 85025; 85610; 85730; 86140; 87086; 93005; 93306; 93970; 99285